=== PATIENT | male | born 1935 | race Two or more races ===

== ENCOUNTER → 2016-04-03 | Day surgery (SDC) | payer OTHER, MEDICAID | END | disposition home or self-care (01) | LOC: FIMAGING 14:06 | PROVIDERS: ATTEND Radiology Diagnostic Radiology | PROC: 02HV33Z Insertion of Infusion Device into Superior Vena Cava, Percutaneous Approach (ICD-10-PCS; principal; 2016-04-03) | DX: R33.9 Retention of urine, unspecified (principal); Z79.2 Long term (current) use of antibiotics; Z87.440 Personal history of urinary (tract) infections | CPT/HCPCS: 36569; 77001; C1751 ==

== ENCOUNTER 2016-04-04 09:59 | Day surgery (SDC) | payer OTHER, MEDICAID ==
[2016-03-18 11:39] LABS: ANION GAP 10 mEq/L (8-16); CALCIUM 8.9 mg/dL (8.5-10.4); CARBON DIOXIDE 18 mEq/l (22-31); CHLORIDE 113 mEq/L (97-110); CREATININE 2.5 mg/dL (0.7-1.3); GLOMERULAR FILTRATION RATE 25; GLUCOSE 76 mg/dL (70-100); SODIUM 141 mEq/L (134-144)
--- NOTE | 2016-03-19 07:51 | CPEKG ---
Heart Rate: 62 RR Interval: 968 P-R Interval: 184 QRSD Interval: 90 QT Interval: 392 QTC Interval: 398 P [place]: 43 QRS [place]: -12 T Wave [place]: 3 EKG Severity - NORMAL ECG - EKG Impression: SINUS RHYTHM Electronically Signed By: Vangie Bradley 19-Mar-2016 12:47:37
[~2016-04-04 09:59] MED LIST: levOFLOXACIN 500 MG/DEXTROSE 100 ML IV ONE
[2016-04-04] MEDS ORDERED: levOFLOXACIN 500 MG/DEXTROSE/100 ML BAG IV ONE (11:20)
[2016-04-04] MEDS ORDERED: NS 1,000 ML IV ONE (11:32)
[2016-04-04] MEDS ORDERED: fentaNYL 100 MCG/2 ML INJ ONE (12:35)
[2016-04-04] MEDS ORDERED: PHENYLEPHRINE HCL 100 MCG/ML SYR ONE (12:36)
[2016-04-04] MEDS ORDERED: METOCLOPRAMIDE 10 MG/2 ML VIAL ONE (12:36)
[2016-04-04] MEDS ORDERED: PROPOFOL 200 MG/20 ML VIAL ONE (12:36)
[2016-04-04] MEDS ORDERED: LIDOCAINE 2% JELLY 5 ML TUBE ONE (12:36)
[2016-04-04] MEDS ORDERED: ONDANSETRON 4 MG/2 ML VIAL ONE (12:37)
[2016-04-04] MEDS ORDERED: MIDAZOLAM 2 MG/2 ML VIAL ONE (12:48)
--- NOTE | 2016-04-04 14:28 | POSTOPPROG ---
Post Op Note Date of Operation: 04/04/16 Surgeon: Annia Nicole (# [id number]) Anesthesia: LMA Pre-op Diagnosis: Severe urethral stricture Post-op Diagnosis: Severe urethral stricture Procedure: DVIU w/ holmium laser Findings: See op report Inf/Abcess present in the surg proc area at time of surgery?: Yes Depth: Organ Space (Lower urinary tract) EBL: Minimal Complications: None Specimen(s): None
--- NOTE | 2016-04-04 15:08 | GOP ---
[f rep st] OPERATIVE REPORT DATE OF OPERATION: 04/04/2016 SURGEON: Annia Nicole MD ANESTHESIA: Laryngeal mask. PREOPERATIVE DIAGNOSIS: Severe urethral stricture. POSTOPERATIVE DIAGNOSIS: Severe bulbomembranous urethral stricture. PROCEDURE PERFORMED: Direct vision internal urethrotomy with holmium laser. FINDINGS: Dense urethral stricture, as detailed below. SPECIMENS: None. ESTIMATED BLOOD LOSS: Minimal. INDICATIONS: This gentleman has had issues with recent recurrent urinary tract infections and urinary retention, but with an inability to catheterize. Office cystoscopy revealed a severely flow-limiting proximal anterior urethral stricture. The patient presents for operative management as noted above, at this time. The indications for the procedures as well as potential risks and complications, were discussed with the patient preoperatively through an local company truck driver. He appeared to understand, his questions were answered, and he wished to proceed. Written informed surgical consent was thereafter obtained. DESCRIPTION OF PROCEDURE: The patient was brought to the operating room and administered laryngeal mask anesthesia. He was carefully placed in the dorsal lithotomy position on the cystoscopic table. The genital area was sterilely prepped with Betadine scrub and paint, and then draped in the usual sterile fashion. A cystoscopy was performed with the 30 degree lens through a 22- [place] sheath. Anterior urethra was normal until the proximal bulbar region was reached. There was a severely flow-limiting stricture at this location that was approximately 5-Uruguayan in diameter. I passed a 0.032-inch guidewire through the strictured area, followed by the passage of a 5-[place] open-ended ureteral catheter. A 550 micron holmium laser fiber was advanced through the ureteral catheter. The laser was then used to make radial incisions through the region of the stricture until the urethra was more widely patent. The stricture was noted to be quite thick and approximately 1-2 cm in length. It appeared to traverse the bulbomembranous region of the urethra. 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 Examination of the bladder revealed it to be heavily trabeculated with a few shallow diverticula. Otherwise, no areas of abnormal erythema, tumors, nor foreign bodies were seen were seen in the bladder. Ureteral orifices were normal in regard to shape and position along the trigone. Once the urethral lumen had been adequately opened, the cystoscope was removed and an 18-[place] tip catheter advanced over the guidewire. Guidewire was subsequently removed and the balloon inflated on the Campbell catheter. The catheter was connected to bag drainage and the urine return was light pink. The patient was then awakened, transferred to his bed, then taken to the recovery room. He tolerated the procedure well overall. COMPLICATIONS: None. DISPOSITION: He was transferred to the recovery room in stable condition. He will be discharged once meeting standard outpatient criteria, with instructions to remove his Campbell catheter next Friday morning, then return to my office in approximately 3 weeks. /[id number]/MODL MTDD
== END 2016-04-04 15:50 | disposition home or self-care (01) ==
LOC: FSGY 09:59 → FPAT 09:59
PROVIDERS: ATTEND Specialist
PROC: 02HV33Z Insertion of Infusion Device into Superior Vena Cava, Percutaneous Approach (ICD-10-PCS; principal; 2016-04-04 13:45)
PROC: 0T5D8ZZ Destruction of Urethra, Via Natural or Artificial Opening Endoscopic (ICD-10-PCS; principal; 2016-04-04 13:45)
DX: N35.9 Urethral stricture, unspecified (principal); N39.0 Urinary tract infection, site not specified; R33.9 Retention of urine, unspecified; N39.42 Incontinence without sensory awareness; N18.9 Chronic kidney disease, unspecified; E11.22 Type 2 diabetes mellitus with diabetic chronic kidney disease; I12.9 Hypertensive chronic kidney disease with stage 1 through stage 4 chronic kidney disease, or unspecified chronic kidney disease; I69.054 Hemiplegia and hemiparesis following nontraumatic subarachnoid hemorrhage affecting left non-dominant side; F32.9 Major depressive disorder, single episode, unspecified; Z87.440 Personal history of urinary (tract) infections
CPT/HCPCS: 36569; 52214; 93005; C1758; C1769; J1956; J2250; J2370; J2405; J2704; J2765; J3010

== ENCOUNTER → 2016-06-24 | Outpatient (CLI) | payer OTHER, MEDICAID | LOC: FIMAGING 11:55 | PROVIDERS: ATTEND Specialist | DX: N13.30 Unspecified hydronephrosis (principal); R33.9 Retention of urine, unspecified ==

== ENCOUNTER 2016-12-17 09:55 | Inpatient (IN) | payer OTHER, MEDICAID ==
[2016-12-17] MEDS ORDERED: NS 1,000 ML IV ONE ×2 (10:23→15:41)
[2016-12-17] MEDS ORDERED: ONDANSETRON 4 MG/2 ML VIAL IVP ONE (10:23)
[2016-12-17 10:29] LABS: % IMMATURE GRANULYOCYTES 0.9 % (0.0-1.1); ABSOLUTE IMMATURE GRANULOCYTES 0.06 10^3/uL (0.00-0.10); ADD DIFF? NO; ADD MORPH? NO; ADD SCAN? NO; ATYPICAL LYMPHOCYTE FLAG 0 (0-99); FRAGMENT RBC FLAG 0 (0-99); HEMATOCRIT 29.8 % (40.0-51.0); HEMOGLOBIN 10.8 g/dL (13.7-17.5); LEFT SHIFT FLG 10 (0-99); LIPEMIA HEMOLYSIS FLAG 90 (0-99); MEAN CELL HEMOGLOBIN 31.2 pg (27.9-34.1); MEAN CELL HEMOGLOBIN CONCENTR. 36.2 g/dL (32.4-36.7); MEAN CELL VOLUME 86.1 fL (81.5-99.8); MEAN PLATELET VOLUME 9.2 fL (8.7-11.7); PLATELET CLUMPS FLAG 0 (0-99); PLATELET COUNT 290 10^3/uL (150-400); RED BLOOD CELL COUNT 3.46 10^6/uL (4.40-6.38); RED CELL DISTRIBUTION WIDTH 15.5 % (11.5-15.2)
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
[2016-12-17 10:52] LABS: ANION GAP 25 mEq/L (8-16); CALCIUM 8.2 mg/dL (8.5-10.4); CHLORIDE 109 mEq/L (97-110); GLOMERULAR FILTRATION RATE 4; GLUCOSE 106 mg/dL (70-100); POTASSIUM 4.1 mEq/L (3.5-5.2); SODIUM 143 mEq/L (134-144)
--- NOTE | 2016-12-17 11:04 | CPEKG ---
Heart Rate: 73 RR Interval: 822 P-R Interval: 180 QRSD Interval: 88 QT Interval: 392 QTC Interval: 432 P [place]: 48 QRS [place]: -11 T Wave [place]: 29 EKG Severity - NORMAL ECG - EKG Impression: SINUS RHYTHM Electronically Signed By: Nilson Ryder 17-Dec-2016 15:00:22
[2016-12-17 11:09] LABS: CARBON DIOXIDE 9 mEq/l (22-31)
[2016-12-17] MEDS ORDERED: ONDANSETRON 4 MG/2 ML VIAL IVP PRN (11:51)
[2016-12-17] MEDS ORDERED: ONDANSETRON DISINTEGRATING 4 MG TAB PO PRN (11:51)
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
[2016-12-17] MEDS: SODIUM BICARBONATE 650 MG TAB PO SCH ×2 (16:06→20:32)
--- NOTE | 2016-12-17 16:10 | GHP ---
[f rep st] HISTORY AND PHYSICAL DATE OF ADMISSION: 12/17/2016 CHIEF COMPLAINT: Nausea and vomiting. HISTORY OF PRESENT ILLNESS: An 81-year-old male with a history of diabetes, hypertension and recent bulbomembranous urethral stricture, status post dilation who presents with nonspecific nausea and vom iting x3 days. The patient's and care provider report that after his recent stricture dilation the patient had marked improvement in his urine output, denies any subjective fevers, chills. Denies any hematuria, denies any diarrhea, blood in his stools, chest pain, shortness of breath, headache o r difficulty swallowing. The patient over the last 3 to 4 days has had increasing fatigue, malaise, then nausea and vomiting. He has been fearful to eat food as it comes right back up. Denies any itc jamison or rashes. PAST MEDICAL HISTORY: 1. Diabetes type 2. 2. Hypertension. 3. History of a CVA with persistent vision and gait deficits. 4. History of T12-L1 osteomyelitis. 5. History of MSSA bacteremia. 6. History of psoas abscess. 7. History of bulbomembranous urethral stricture status post surgical dilation. 8. CKD presumed from chronic obstructive uropathy. Most recent creatinine in 4 in September of 2016. SOCIAL HISTORY: Patient lives at home with his . No tobacco, alcohol or illicit drugs. FAMILY HISTORY: Negative for kidney disease. REVIEW OF SYSTEMS: A 10-point Review of Systems is negative. ADVANCE DIRECTIVES: The patient wishes to be full cor, full tube. PHYSICAL EXAMINATION: VITAL SIGNS: Blood pressure 172/92, heart rate 75, respiratory rate 18, 97% o n room air, 36.7. GENERAL: This is a thin elderly male lying flat in bed. HEENT: Notable for dry mucous membranes. Eye exam is negative for any icterus. CARDIAC EXAM: Patient is regular rate and rhythm. A systolic murmur is appreciated. PULMONARY: Patient is clear to auscultation bilaterally. GASTROINTESTINAL: Positive bowel sounds. Abdomen is soft, but distended. Denies tenderness to pa lpation in the suprapubic area. MUSCULOSKELETAL: Negative for any lower extremity edema. SKIN EXAM : Negative for any rashes. NEUROLOGIC: Patient is alert and oriented x3. Has clear visual deficit s. Gait was not assessed. DATA: White count 7, hematocrit 29.8, platelets of 280. Creatinine of 12.0, last checked at 4, bica rb 9, anion gap of 25, BUN of 129, calcium of 8.2. EKG, which I personally reviewed and interpreted, shows sinus rhythm, leftward axis with no acute ST- T changes. ASSESSMENT AND PLAN: This is an 81-year-old male, presenting with nausea and vomiting. 1. Acute on chronic kidney injury. Based on the patient's history, suspect we have recurrence of hi s urethral stricture causing an obstructive uropathy. Will order a STAT ultrasound of the kidneys to look for hydronephrosis and the level of obstruction. Will additionally consult Nephrology as well as Urology for help mechanically addressing what I am presuming is recurrent urethral stricture. The patient received 1 L of normal saline in the emergency department. I am hopeful with Campbell placemen t will see improvement in his renal function overnight. 2. Acute anion gap metabolic acidosis secondary to acute kidney injury. The patient did compliantly take all of his medications including his metformin since last seen by physician. Will hold all of these medications. Check a lactic acid and hydrate. 3. Diabetes, as above, will hold the patient's metformin, will add sliding scale insulin as needed. 4. Hypertension, will hold the patient's diuretics, can continue his calcium channel angeles, and fo llow his pressures overnight, if needed, can do p.r.n. hydralazine. 5. History of cerebrovascular accident. The patient has clear deficits on his neurologic exam. Mauro l continue his aspirin and statin. 6. Prophylaxis. Will hold Lovenox as I suspect patient will need instrumentation later today by Uro logy. Will place SCDs. Can restart heparin subcu after intervention. DIET: n.p.o. until cleared by Urology to eat. DISPOSITION: I expect greater than 2-midnights. Patient is presenting with severe acute kidney inju ry requiring urologic intervention and close monitoring. I have discussed the case with Dr. Patel from Nephrology. The patient is not interested in hemodialysis. We will work on mechanical interve ntion for the patient's suspected recurrent obstruction. /[id number]/MODL
[2016-12-17] MEDS ORDERED: LIDOCAINE 2% JELLY 20 ML (UROJECT) UR ONE (16:15)
--- NOTE | 2016-12-17 16:33 | PDMN ---
Medical Necessity Medical necessity: Pt meets IP criteria per MD; est los >2 mn for severe acute kidney injury requiring urologic intervention & close monitoring, acute anion gap metabolic acidosis secondary to acute kidney injury; hx DM, htn, CVA; per H& P 12/17/16
--- NOTE | 2016-12-17 17:59 | SOAPPROG ---
SOAP Progress Note Assessment/Plan: Assessment: 1. Known urethral stricture disease with chronic urinary retention. 2. Grossly purulent urine. 3. Acute on chronic renal failure. Plan: 1. Bedside urethral dilation and complex urethral catheterization completed without complication. 2. Monitor creatinine. Will have low threshold for bilateral nephrostomy tube placement. 3. Urine will be sent for culture this evening. Objective: Vital Signs Temp Pulse Resp BP Pulse Ox 36.6 C 79 20 186/91 H 97 12/17/16 16:43 12/17/16 16:43 12/17/16 16:43 12/17/16 16:43 12/17/16 16:43 12/16/16 12/17/16 12/18/16 05:59 05:59 05:59 Intake Total 1000 Balance 1000 ICD10 Worksheet Patient Problems: Problems Problem Status Onset Renal failure (ARF), acute on chronic Acute Closed fracture of pelvis Active Fever Active bladder rupture Active Bacteremia Acute Bacteremia due to Klebsiella pneumoniae Acute Lumbar canal stenosis Acute Urinary tract infection Acute
[2016-12-17 18:24] LABS: COLOR YELLOW; LEUKOCYTE ESTERASE,URINE 3+ (NEGATIVE); NITRITE,URINE NEGATIVE (NEGATIVE)
[2016-12-17 18:27] LABS: BACTERIA 4+ /hpf (NONE SEEN); RBC,URINE 25-50 /hpf (0-3); WBC,URINE 50-182 /hpf (0-3)
[2016-12-17] MEDS: TAMSULOSIN HCL 0.4 MG CAP PO SCH (20:31)
[2016-12-18 03:59] LABS: % IMMATURE GRANULYOCYTES 0.8 % (0.0-1.1); ABSOLUTE IMMATURE GRANULOCYTES 0.05 10^3/uL (0.00-0.10); ADD DIFF? NO; ADD MORPH? NO; ADD SCAN? NO; ATYPICAL LYMPHOCYTE FLAG 0 (0-99); FRAGMENT RBC FLAG 0 (0-99); HEMATOCRIT 25.1 % (40.0-51.0); HEMOGLOBIN 8.6 g/dL (13.7-17.5); LEFT SHIFT FLG 10 (0-99); LIPEMIA HEMOLYSIS FLAG 90 (0-99); MEAN CELL HEMOGLOBIN 30.3 pg (27.9-34.1); MEAN CELL HEMOGLOBIN CONCENTR. 34.3 g/dL (32.4-36.7); MEAN CELL VOLUME 88.4 fL (81.5-99.8); MEAN PLATELET VOLUME 8.9 fL (8.7-11.7); PLATELET CLUMPS FLAG 0 (0-99); PLATELET COUNT 226 10^3/uL (150-400); RED BLOOD CELL COUNT 2.84 10^6/uL (4.40-6.38); RED CELL DISTRIBUTION WIDTH 15.6 % (11.5-15.2)
[2016-12-18 04:12] LABS: ALBUMIN 2.9 g/dL (3.5-5.0); ANION GAP 21 mEq/L (8-16); CALCIUM 7.6 mg/dL (8.5-10.4); CHLORIDE 113 mEq/L (97-110); GLOMERULAR FILTRATION RATE 4; GLUCOSE 90 mg/dL (70-100); POTASSIUM 3.5 mEq/L (3.5-5.2); SODIUM 143 mEq/L (134-144)
[2016-12-18 04:19] LABS: CARBON DIOXIDE 9 mEq/l (22-31); CREATININE 11.2 mg/dL (0.7-1.3)
[2016-12-18] MEDS: SODIUM BICARBONATE 650 MG TAB PO SCH ×4 (05:55→21:25)
[2016-12-18] MEDS ORDERED: NON-FORMULARY NEW DRUG (Lovastatin [Lovastatin] 20 MG) PO SCH (09:00)
[2016-12-18] MEDS: ASPIRIN EC 81 MG TAB PO SCH (09:03)
[2016-12-18] MEDS: PRAVASTATIN SODIUM 20 MG TAB PO SCH (09:04)
--- NOTE | 2016-12-18 11:25 | SOAPPROG ---
SOAP Progress Note Assessment/Plan: Assessment: ALEXSANDRA vs progression of CKD nausea and vomiting better today garnica cath in place with 1.8 L uop does NOT want dialysis Plan: continue support NO HD would help family arrange outpatient hospice/palliative care 12/18/16 11:22 Objective: Vital Signs Temp Pulse Resp BP Pulse Ox 36.8 C 63 18 148/79 H 96 12/18/16 08:30 12/18/16 08:30 12/18/16 08:30 12/18/16 09:03 12/18/16 08:30 Laboratory Results 12/18/16 03:36 12/18/16 03:36 12/17/16 12/18/16 12/19/16 05:59 05:59 05:59 Intake Total 1850 Output Total 1805 Balance 45 Physical Exam - Physical Exam General Appearance: alert, thin Respiratory: No rales, No rhonchi, No wheezing Cardiac/Chest: regular rate, rhythm, No edema, No friction rub Abdomen: normal bowel sounds, non-tender, soft Skin: normal color, warm/dry Extremities: No pedal edema Neuro/Psych: alert, normal mood/affect, oriented x 3 ICD10 Worksheet Patient Problems: Problems Problem Status Onset Renal failure (ARF), acute on chronic Acute Closed fracture of pelvis Active Fever Active bladder rupture Active Bacteremia Acute Bacteremia due to Klebsiella pneumoniae Acute Lumbar canal stenosis Acute Urinary tract infection Acute
[2016-12-18] MEDS: TAMSULOSIN HCL 0.4 MG CAP PO SCH ×2 (11:59→21:25)
[2016-12-18] MEDS: OMEGA-3 FATTY ACIDS 1,000 MG CAP PO SCH (12:02)
--- NOTE | 2016-12-18 15:52 | ASMTCMCOM ---
CM Note CM Note Notes: 12/18/2016 Case Management Note Met w/pt and cooperative education director to discuss d/c plan of care. PT lives with , who provides majority of cares. Pt does not want to d/c to SNF, has prior stays at [facility]. Pt wanted case management to contact regarding home health agency services. Forest Ecologist and Case management attempted to reach [facility]. Reached daughter Bill who is passing a message to [facility]. Planned for meeting at 0900 with and possibly daughter on 12/19/2016 to fill out MOST form and discuss MDPOA. Contacted spiritual care to facilitate discussion tomorrow morning. cooperative education director will be present as well tomorrow. Case Management d/c poc: to be determined. Case management to follow. Date Signed: 12/18/2016 03:51 PM Electronically Signed By:Candy Proctor RN
--- NOTE | 2016-12-18 18:43 | HOSPPROG ---
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 Nicole to see if this will lead to any improvement in his renal function. A Campbell catheter is in place and Dr. Nicole wishes for that to be left in place at this time -diabetes mellitus chronic -chronic hypertension PLANS: -Patient is decided that he does not wish to have any hemodialysis. Therefore we are looking into palliative care options. His family was not at the bedside and I was not able to discuss with them today but will need to decide whether not he will be able to go with him if taking care form or whether he may need to go to a fdc facility at this time. Another option might be the inpatient hospice care center at [facility] on [place]. -Campbell catheter remain in place at this time, per Dr. Ramírez while we follow his renal function for any improvement -hospice evaluation, discharge planning SUBJECTIVE: Patient denies any pain, nausea, dyspnea. 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, my review: Sinus Exam: alert oriented, very weak and tired skin warm dry resps not labored lungs clear BSs heart regular abd soft nondistended nontender, bowel sounds present iv site ok Creatinine decreased from 12-11.2 CO2 still low at 9 on bicarbonate replacement Objective: Vital Signs Temp Pulse Resp BP Pulse Ox 36.6 C 60 17 128/70 H 96 12/18/16 16:00 12/18/16 16:00 12/18/16 16:00 12/18/16 16:00 12/18/16 16:00 Laboratory Results 12/18/16 03:36 12/18/16 03:36 12/17/16 12/18/16 12/19/16 06:59 06:59 06:59 Intake Total 1850 Output Total 1805 450 Balance 45 -450 ICD10 Worksheet Patient Problems: Problems Problem Status Onset Renal failure (ARF), acute on chronic Acute Closed fracture of pelvis Active Fever Active bladder rupture Active Bacteremia Acute Bacteremia due to Klebsiella pneumoniae Acute Lumbar canal stenosis Acute Urinary tract infection Acute
[2016-12-19 05:33] LABS: % IMMATURE GRANULYOCYTES 0.7 % (0.0-1.1); ABSOLUTE IMMATURE GRANULOCYTES 0.04 10^3/uL (0.00-0.10); ADD DIFF? NO; ADD MORPH? NO; ADD SCAN? NO; ATYPICAL LYMPHOCYTE FLAG 0 (0-99); FRAGMENT RBC FLAG 0 (0-99); HEMATOCRIT 24.8 % (40.0-51.0); HEMOGLOBIN 8.8 g/dL (13.7-17.5); LEFT SHIFT FLG 10 (0-99); LIPEMIA HEMOLYSIS FLAG 90 (0-99); MEAN CELL HEMOGLOBIN 31.1 pg (27.9-34.1); MEAN CELL HEMOGLOBIN CONCENTR. 35.5 g/dL (32.4-36.7); MEAN CELL VOLUME 87.6 fL (81.5-99.8); MEAN PLATELET VOLUME 9.5 fL (8.7-11.7); PLATELET CLUMPS FLAG 0 (0-99); PLATELET COUNT 243 10^3/uL (150-400); RED BLOOD CELL COUNT 2.83 10^6/uL (4.40-6.38); RED CELL DISTRIBUTION WIDTH 15.1 % (11.5-15.2)
[2016-12-19 05:46] LABS: ALBUMIN 2.9 g/dL (3.5-5.0); ANION GAP 20 mEq/L (8-16); CALCIUM 7.7 mg/dL (8.5-10.4); CARBON DIOXIDE 10 mEq/l (22-31); CHLORIDE 110 mEq/L (97-110); GLOMERULAR FILTRATION RATE 5; GLUCOSE 87 mg/dL (70-100); POTASSIUM 3.4 mEq/L (3.5-5.2); SODIUM 140 mEq/L (134-144)
[2016-12-19 05:48] LABS: CREATININE 10.9 mg/dL (0.7-1.3)
[2016-12-19] MEDS: SODIUM BICARBONATE 650 MG TAB PO SCH ×4 (06:35→22:14)
[2016-12-19] MEDS: ASPIRIN EC 81 MG TAB PO SCH (09:00)
[2016-12-19] MEDS: PRAVASTATIN SODIUM 20 MG TAB PO SCH (09:00)
[2016-12-19] MEDS: TAMSULOSIN HCL 0.4 MG CAP PO SCH ×2 (11:04→22:14)
--- NOTE | 2016-12-19 11:29 | HOSPPROG ---
Hospitalist Progress Note Assessment/Plan: #. CKD5 - patient would like to proceed with HD per discussion with palliative care. I also discussed with Dr. Benson and preparations are being made for HD catheter. #. Hypokalemia - mild. Follow for now. #. Hx urethral stricture - Dr. Nicole consulting. Continue with garnica catheter. #. HTN - stable. No changes today. #. DM2 - No changes. #. Metabolic Acidosis - secondary to uremia. Patient is on sodium bicarb. #. 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 #. Bowel/Bladder - BM X 1 today. #. DVT prophylaxis - Hold heparin/lovenox and will need catheter. #. Dispo - code status was readdress with palliative care and he remains a full code. Subjective: Case reviewed this morning with Elio Damon with palliative care as well as Dr. Benson with nephrology. The patient changed his mind about proceeding with HD and would like to start. No acute events overnight. Objective: Vital Signs Temp Pulse Resp BP Pulse Ox 36.8 C 58 L 17 146/74 H 94 12/19/16 08:00 12/19/16 08:00 12/19/16 08:00 12/19/16 09:04 12/19/16 08:00 Laboratory Results 12/19/16 04:26 12/19/16 04:26 12/18/16 12/19/16 12/20/16 05:59 05:59 05:59 Intake Total 1850 900 Output Total 1805 1850 Balance 45 -950 - Physical Exam Constitutional: no apparent distress, appears nourished, not in pain Cardiovascular: regular rate and rhythym, no murmur, rub, or gallop, No edema Respiratory: no respiratory distress, no rales or rhonchi, clear to auscultation Gastrointestinal: normoactive bowel sounds, soft, non-tender abdomen, no palpable masses ICD10 Worksheet Patient Problems: Problems Problem Status Onset Renal failure (ARF), acute on chronic Acute Closed fracture of pelvis Active Fever Active bladder rupture Active Bacteremia Acute Bacteremia due to Klebsiella pneumoniae Acute Lumbar canal stenosis Acute Urinary tract infection Acute
--- NOTE | 2016-12-19 11:43 | ASMTCMCOM ---
CM Note CM Note Notes: 12/19/2016 Case Management Note Met w/pt, Suly, daugkristina Hearn. son in law Collins and son Jet, Chaplain Bertrand, Chaplain Ballard and supervisor shrimp [employer] Elliot. Discussed need for home health services at d/c. Family and pt in agreement of need for home RN and PT. After discussing multiple agencies, family chose [facility]. Notified [facility] who accepted pt. Please see palliative care note for details of discussion re: advanced directives and MDPOA. Suly designated MDPOA by pt. Educated pt on benefits of dialysis and addressed misconceptions that dialysis is life shortening. Pt agreed that dialysis was acceptable course of treatment. Family in agreement and able to transport pt to dialysis 3 x/week. Elio palliative crm marketing executive to j carlos [facility]. Case Management notified RN. Case Management d/c poc: Home with home health RN PT from [facility] when medicallly stable with follow up as directed. Date Signed: 12/19/2016 11:42 AM Electronically Signed By:Candy Proctor RN
--- NOTE | 2016-12-19 11:44 | SOAPPROG ---
NIESHA Progress Note Assessment/Plan: Assessment:Plan: ESRD-patient now would like to pursue dialysis -he and his had been very clear prior to this admission that this was something they did not wish to pursue -he evidently was under the belief that initiation of dialysis would hasten his demise -they have now changed their minds after discussion with Palliative Care -I had actually referred them for consultation with Palliative Care/Hospice several months ago -regardless, we will now pursue access placement and the initiation of dialysis -I have placed a call to Dr. Oscar for AVF and tunneled catheter placement -preserve veins in Left arm for AVF -he is right-handed -Hep serologies requested -he lives at [address] [place] [address] here in [place] -I spoke with the and requested that she and her family visit the dialysis clinics in the area so they can make a choice on where they want to go -the two closest clinics are [facility] and [facility] dialysis -I have been seeing him at the [facility] in [place], which is adjacent to the [facility] Access-per Dr. Oscar Disposition-he needs to get stabilized on Hd first -he and his family need to choose a dialysis center for his outpatient care -I suspect he will be able to go directly home from this hospitalization, as he has a very supportive family 12/19/16 11:36 Subjective: feels just "okay" Objective: Vital Signs Temp Pulse Resp BP Pulse Ox 36.8 C 58 L 17 146/74 H 94 12/19/16 08:00 12/19/16 08:00 12/19/16 08:00 12/19/16 09:04 12/19/16 08:00 Laboratory Results 12/19/16 04:26 12/19/16 04:26 12/18/16 12/19/16 12/20/16 05:59 05:59 05:59 Intake Total 1850 900 Output Total 1805 1850 Balance 45 -950 Physical Exam - Physical Exam General Appearance: alert, no apparent distress EENT: normal ENT inspection Neck: normal inspection Respiratory: decreased breath sounds Cardiac/Chest: regular rate, rhythm Abdomen: normal bowel sounds, non-tender Skin: normal color, warm/dry Extremities: No swelling ICD10 Worksheet Patient Problems: Problems Problem Status Onset Renal failure (ARF), acute on chronic Acute Closed fracture of pelvis Active Fever Active bladder rupture Active Bacteremia Acute Bacteremia due to Klebsiella pneumoniae Acute Lumbar canal stenosis Acute Urinary tract infection Acute
[2016-12-19] MEDS: OMEGA-3 FATTY ACIDS 1,000 MG CAP PO SCH (12:09)
[2016-12-19] MEDS ORDERED: ceFAZolin 2 GM/DEXTROSE 100 ML IV ONE (18:05)
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
[2016-12-19] MEDS ORDERED: ceFAZolin 2 GM/SWFI 20 ML SYR IVP ONE (18:30)
[2016-12-19] MEDS ORDERED: LIDOCAINE 1% 300 MG/30 ML SDV ONE (18:31)
[2016-12-19] MEDS ORDERED: SODIUM BICARBONATE 10 MEQ/10 ML SYR IVP ONE (18:32)
[2016-12-19] MEDS ORDERED: BUPIVACAINE 0.5% 30 ML SDV ONE (18:33)
[2016-12-19] MEDS ORDERED: BACITRACIN ZINC 14.2 GM OINTTUBE TP ONE (18:34)
[2016-12-19] MEDS ORDERED: HEPARIN 5,000 UNIT/0.5 ML SYR ONE ×2 (18:34→19:47)
[2016-12-19] MEDS ORDERED: LIDOCAINE 2% 5 ML SDV ONE (18:40)
[2016-12-19] MEDS ORDERED: PROPOFOL/EMULSION 500 MG/50 ML BOTTLE IV ONE (18:40)
[2016-12-19] MEDS ORDERED: HEPARIN 10,000 UNIT/10 ML MDV ONE (19:45)
[2016-12-19] MEDS ORDERED: HEPARIN 50,000 UNIT/10 ML VIAL ONE (19:50)
[2016-12-19] MEDS ORDERED: fentaNYL 100 MCG/2 ML INJ IVP PRN (20:02)
[2016-12-19] MEDS ORDERED: ALBUTEROL 3 ML DEYVIAL IH PRN (20:02)
[2016-12-19] MEDS ORDERED: NALOXONE HCL 0.4 MG/ML INJ IVP PRN (20:02)
--- NOTE | 2016-12-19 20:02 | POSTANESTH ---
Post Anesthetic Evaluation Cardiovascular Status: Normal, Stable Respiratory Status: Normal, Stable Level of Consciousness/Mental Status: Can Participate in Eval Pain Control: Adequate, Prn Tx Ordered Nausea/Vomiting Control: Adequate, Prn Tx Ordered Complications Possibly Related to Anesthesia: None Noted
[2016-12-19] MEDS ORDERED: HYDROCODONE/APAP 5/325 TAB PO PRN (20:09)
--- NOTE | 2016-12-19 20:15 | POSTOPPROG ---
Post Op Note Date of Operation: 12/19/16 Surgeon: Jayme Oscar Anesthesiologist: ALONSO Anesthesia: IV Sedation Pre-op Diagnosis: RENAL FAILURE Post-op Diagnosis: SAME Indication: DIALYSIS ACCESS Procedure: RIGHT IJ PALINDROME TUNNELED CATHETER PLACEMENT WITH FLUOROSCOPIC GUIDANCE Findings: GOOD FLOW Inf/Abcess present in the surg proc area at time of surgery?: No Depth: Deep Incisional (Fascial) EBL: Minimal Complications: NONE
--- NOTE | 2016-12-19 23:55 | SOAPPROG ---
SOAP Progress Note Assessment/Plan: Assessment: 81-YEAR-OLD MALE SEEN IN CONSULTATION FOR POSSIBLE DIALYSIS ACCESS / RISKS AND OPTIONS FULLY DISCUSSED WITH THE PATIENT AND FAMILY AND WITH AN EINSTEIN BROS BAGELS ASSISTANT MANAGER WILL NEED TUNNELED CATHETER AND EVENTUAL AV FISTULA HEENT NEGATIVE/ CHEST CLEAR/ COR REGULAR RHYTHM/ ABDOMEN SOFT NONTENDER / EXTREMITIES FULL RANGE OF MOTION FULL PULSES Plan: IN JUGULAR TUNNELED CATHETER TODAY AND AV FISTULA WHEN STABLE 12/19/16 23:52 Objective: Vital Signs Temp Pulse Resp BP Pulse Ox 36.7 C 77 16 162/87 H 96 12/19/16 23:41 12/19/16 23:41 12/19/16 23:41 12/19/16 23:41 12/19/16 23:41 Laboratory Results 12/19/16 04:26 12/19/16 04:26 12/18/16 12/19/16 12/20/16 05:59 05:59 05:59 Intake Total 1850 900 300 Output Total 1805 1850 1390 Balance 45 -928 -1090 ICD10 Worksheet Patient Problems: Problems Problem Status Onset Renal failure (ARF), acute on chronic Acute Closed fracture of pelvis Active Fever Active bladder rupture Active Bacteremia Acute Bacteremia due to Klebsiella pneumoniae Acute Lumbar canal stenosis Acute Urinary tract infection Acute
[2016-12-20] MEDS: ACETAMINOPHEN 325 MG TAB PO PRN ×2 (04:12→17:00)
[2016-12-20 04:59] LABS: % IMMATURE GRANULYOCYTES 0.4 % (0.0-1.1); ABSOLUTE IMMATURE GRANULOCYTES 0.04 10^3/uL (0.00-0.10); ADD DIFF? NO; ADD MORPH? NO; ADD SCAN? NO; ATYPICAL LYMPHOCYTE FLAG 0 (0-99); FRAGMENT RBC FLAG 0 (0-99); HEMATOCRIT 26.3 % (40.0-51.0); HEMOGLOBIN 9.2 g/dL (13.7-17.5); LEFT SHIFT FLG 0 (0-99); LIPEMIA HEMOLYSIS FLAG 90 (0-99); MEAN CELL HEMOGLOBIN 30.4 pg (27.9-34.1); MEAN CELL VOLUME 86.8 fL (81.5-99.8); MEAN PLATELET VOLUME 9.4 fL (8.7-11.7); PLATELET CLUMPS FLAG 40 (0-99); PLATELET COUNT 262 10^3/uL (150-400); RED BLOOD CELL COUNT 3.03 10^6/uL (4.40-6.38)
[2016-12-20 05:28] LABS: ANION GAP 18 mEq/L (8-16); CALCIUM 7.7 mg/dL (8.5-10.4); CARBON DIOXIDE 14 mEq/l (22-31); CHLORIDE 110 mEq/L (97-110); GLOMERULAR FILTRATION RATE 5; GLUCOSE 94 mg/dL (70-100); POTASSIUM 3.3 mEq/L (3.5-5.2); SODIUM 142 mEq/L (134-144)
--- NOTE | 2016-12-20 05:32 | GOP ---
[f rep st] OPERATIVE REPORT DATE OF OPERATION: 12/19/2016 SURGEON: Jayme Oscar MD PREOPERATIVE DIAGNOSIS: Chronic renal failure. POSTOPERATIVE DIAGNOSIS: Chronic renal failure. PROCEDURE PERFORMED: Ultrasound guided right IJ tunneled palindromic catheter placement with fluoroscopic guidance. FINDINGS: Patient was found to have good position and flow. DESCRIPTION OF PROCEDURE: Patient was taken to the operating room where he received satisfactory IV sedation, monitored anesthesia care by Dr. Underwood. He was placed in supine position, prepped and draped in usual sterile fashion. Using ultrasound guidance, a direct stick was made in the right jugular vein. A guidewire was introduced, position was confirmed with fluoroscopy. Palindromic catheter was tunneled from an incision on the anterior chest wall up over the clavicle, into the insertion site of the guidewire. Dilators were passed with the guidewire and the introducer sheath was introduced under fluoroscopic guidance. The palindromic catheter was passed without difficulty and the introducer sheath was removed. Good position was confirmed. Good flow was confirmed. The catheter was flushed with heparin, saline was then instilled with the appropriate amount of 5000 units/cc of heparin, and secured to the exit site with interrupted 3-0 Prolene sutures. The entrance site was closed with 3-0 Prolene mattress sutures. Wounds had been originally accomplished with 1% Xylocaine local infiltration and they were augmented with 0.5% Marcaine local infiltration. He tolerated procedure quite well. There were no complications. He was taken to the recovery room in good condition. /[id number]/MODL MTDD
[2016-12-20 05:33] LABS: CREATININE 10.6 mg/dL (0.7-1.3)
[2016-12-20] MEDS: SODIUM BICARBONATE 650 MG TAB PO SCH ×4 (06:10→23:02)
--- NOTE | 2016-12-20 08:31 | SOAPPROG ---
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 with his above serologies not indicative of acute infection -he does not need to be isolated on dialysis -await Hep B SAb result to confirm immune status -he lives at [address] [place] [address] here in [place] -I have requested that family visit the dialysis clinics in the area so they can make a choice on where they want to go for treatment -the two closest clinics are [facility] and [facility] dialysis -I have been seeing him at the [facility] in [place], which is adjacent to the [facility] [place] Access-per Dr. Oscar -he had tunneled catheter placed yesterday -plan for possible AVF prior to discharge Disposition-he needs to get stabilized on Hd first -he and his family need to choose a dialysis center for his outpatient care -I suspect he will be able to go directly home from this hospitalization, as he has a very supportive family Anemia-check iron studies -start EPO 12/20/16 08:35 Subjective: okay overnite Objective: Vital Signs Temp Pulse Resp BP Pulse Ox 36.6 C 64 16 130/75 H 92 12/20/16 08:00 12/20/16 08:00 12/20/16 08:00 12/20/16 08:00 12/20/16 08:00 Laboratory Results 12/20/16 04:03 12/20/16 04:03 12/19/16 12/20/16 12/21/16 05:59 05:59 05:59 Intake Total 900 650 Output Total 1850 3200 Balance -950 -1890 Physical Exam - Physical Exam General Appearance: no apparent distress EENT: normal ENT inspection Neck: normal inspection Respiratory: decreased breath sounds Cardiac/Chest: regular rate, rhythm, No systolic murmur Abdomen: normal bowel sounds, non-tender Skin: normal color, warm/dry Extremities: No swelling ICD10 Worksheet Patient Problems: Problems Problem Status Onset Renal failure (ARF), acute on chronic Acute Closed fracture of pelvis Active Fever Active bladder rupture Active Bacteremia Acute Bacteremia due to Klebsiella pneumoniae Acute Lumbar canal stenosis Acute Urinary tract infection Acute
[2016-12-20] MEDS: TAMSULOSIN HCL 0.4 MG CAP PO SCH ×2 (11:22→23:02)
[2016-12-20] MEDS: PRAVASTATIN SODIUM 20 MG TAB PO SCH (11:22)
[2016-12-20] MEDS: ASPIRIN EC 81 MG TAB PO SCH (11:22)
[2016-12-20] MEDS: OMEGA-3 FATTY ACIDS 1,000 MG CAP PO SCH (11:23)
[2016-12-20 14:42] LABS: HEPATITIS Bs Ab QUANT <5.0 mIU/mL
--- NOTE | 2016-12-20 16:11 | HOSPPROG ---
Hospitalist Progress Note Assessment/Plan: #. CKD5 now ESRD/HD - patient would like to proceed with HD per discussion with palliative care. He has had a dialysis catheter placed and Dr. Oscar is looking into AV fistula formation. Per Dr. Benson's notes he had short session on HD today. #. Pseudomonas Urine Culture - there are no symptoms to suggest active infection but he did have grossly purulent urine when the garnica catheter was placed and today does have an elevated WBC (mild at 9). I reviewed with ID and will start Zosyn. #. Hypokalemia - mild. Follow for now. #. Hx urethral stricture - Dr. Nicole consulted. Continue with garnica catheter. #. HTN - he has had some elevated readings today. Will add prn hydralazine for SBP > 150. #. DM2 - No changes. #. Metabolic Acidosis - secondary to uremia. Patient is on sodium bicarb. #. 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 Epogen. #. Bowel/Bladder - BM X 1 today. #. DVT prophylaxis - held for catheter placement. If not bleeding likely could start heparin. #. Dispo - code status was readdress with palliative care and he remains a full code. Dr. Benson who knows him well thinks he will be able to return home with family (as good support) once stabilized on HD. Subjective: Patient was seen today along with wine consultant. He does not have any specific questions or concerns for me. He is not having any fevers or abdominal pains. He declines any pain around the catheter site. Objective: Vital Signs Temp Pulse Resp BP Pulse Ox 36.9 C 100 18 165/102 H 95 12/20/16 12:00 12/20/16 12:00 12/20/16 12:00 12/20/16 12:00 12/20/16 12:00 Microbiology 12/17/16 18:25 Urine Culture - Final Urine,Clean Catch Pseudomonas Aeruginosa Pseudomonas Aeruginosa#2 Strep Agalactiae Group B Laboratory Results 12/20/16 04:03 12/20/16 04:03 12/19/16 12/20/16 12/21/16 05:59 05:59 05:59 Intake Total 900 650 Output Total 1850 2540 450 Balance -950 -1890 -450 - Physical Exam Constitutional: no apparent distress, appears nourished, not in pain Cardiovascular: regular rate and rhythym, no murmur, rub, or gallop, No edema Respiratory: no respiratory distress, no rales or rhonchi, clear to auscultation Gastrointestinal: normoactive bowel sounds, soft, non-tender abdomen, no palpable masses ICD10 Worksheet Patient Problems: Problems Problem Status Onset Renal failure (ARF), acute on chronic Acute Closed fracture of pelvis Active Fever Active bladder rupture Active Bacteremia Acute Bacteremia due to Klebsiella pneumoniae Acute Lumbar canal stenosis Acute Urinary tract infection Acute
[2016-12-20] MEDS ORDERED: hydrALAZINE 20 MG/ML VIAL IVP PRN (16:35)
[2016-12-20] MEDS: PIPERACILLIN/TAZO 2.25 GM/DEX 50 ML IV SCH (17:34)
[2016-12-21] MEDS: PIPERACILLIN/TAZO 2.25 GM/DEX 50 ML IV SCH ×3 (01:05→17:15)
[2016-12-21] MEDS: ACETAMINOPHEN 325 MG TAB PO PRN (02:12)
[2016-12-21 05:03] LABS: ABSOLUTE IMMATURE GRANULOCYTES 0.08 10^3/uL (0.00-0.10); ADD DIFF? NO; ADD MORPH? NO; ADD SCAN? NO; ATYPICAL LYMPHOCYTE FLAG 0 (0-99); FRAGMENT RBC FLAG 0 (0-99); HEMOGLOBIN 8.7 g/dL (13.7-17.5); LEFT SHIFT FLG 10 (0-99); LIPEMIA HEMOLYSIS FLAG 90 (0-99); MEAN CELL HEMOGLOBIN 30.1 pg (27.9-34.1); MEAN CELL HEMOGLOBIN CONCENTR. 34.8 g/dL (32.4-36.7); MEAN CELL VOLUME 86.5 fL (81.5-99.8); MEAN PLATELET VOLUME 9.3 fL (8.7-11.7); PLATELET CLUMPS FLAG 0 (0-99); PLATELET COUNT 226 10^3/uL (150-400); RED BLOOD CELL COUNT 2.89 10^6/uL (4.40-6.38); RED CELL DISTRIBUTION WIDTH 14.8 % (11.5-15.2)
[2016-12-21 05:32] LABS: ALBUMIN 2.6 g/dL (3.5-5.0); ANION GAP 13 mEq/L (8-16); CALCIUM 7.6 mg/dL (8.5-10.4); CARBON DIOXIDE 22 mEq/l (22-31); CHLORIDE 100 mEq/L (97-110); GLOMERULAR FILTRATION RATE 7; GLUCOSE 114 mg/dL (70-100); POTASSIUM 3.1 mEq/L (3.5-5.2); SODIUM 135 mEq/L (134-144)
[2016-12-21 05:42] LABS: CREATININE 7.7 mg/dL (0.7-1.3)
[2016-12-21] MEDS: SODIUM BICARBONATE 650 MG TAB PO SCH ×4 (06:24→20:50)
--- NOTE | 2016-12-21 08:30 | SOAPPROG ---
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 suggesting past exposure with his above serologies not indicative of acute infection -he does not need to be isolated on dialysis -await Hep B SAb result to confirm immune status -he lives at [address] [place] [address] here in [place] -I have requested that family visit the dialysis clinics in the area so they can make a choice on where they want to go for treatment -the two closest clinics are [facility] and [facility] -I have been seeing him at the [facility] in [place], which is adjacent to the [facility] [place] Access-per Dr. Oscar -he had tunneled catheter placed yesterday -plan for possible AVF prior to discharge Disposition-he needs to get stabilized on Hd first -he and his family need to choose a dialysis center for his outpatient care -I suspect he will be able to go directly home from this hospitalization, as he has a very supportive family Anemia-check iron studies -start EPO and IV iron as outpatient BMD- -calcium corrects to >8 -check PTH, Vit D -renal diet with protein supplement AGMA- -CO2 normalizing on HD, may hold bicarb supplement Urinary retention with UTI- -pseudomonas, on zosyn -still has garnica, will need to see urology for follow-up or consider PVR trial prior to discharge -on tamsulosin, continue 12/21/16 08:31 Subjective: Patient seen on HD. Sleeping. Poor po intake and having some nausea. BP's lower today despite no UF. Objective: Vital Signs Temp Pulse Resp BP Pulse Ox 36.9 C 58 L 16 97/58 L 93 12/21/16 06:39 12/21/16 06:39 12/21/16 06:39 12/21/16 06:39 12/21/16 06:39 Microbiology 12/17/16 18:25 Urine Culture - Final Urine,Clean Catch Pseudomonas Aeruginosa Pseudomonas Aeruginosa#2 Strep Agalactiae Group B Laboratory Results 12/21/16 04:08 12/21/16 04:08 12/20/16 12/21/16 12/22/16 05:59 05:59 04:59 Intake Total 650 460 Output Total 2540 1100 Balance -1890 -640 Physical Exam - Physical Exam General Appearance: no apparent distress, cachetic EENT: PERRL/EOMI Neck: supple Respiratory: decreased breath sounds Cardiac/Chest: normal peripheral pulses, regular rate, rhythm Abdomen: normal bowel sounds, non-tender, soft Male Genitalia: other (garnica in place with light urine) Back: Normal inspection Skin: normal color, warm/dry Extremities: normal range of motion, non-tender Neuro/Psych: other (sleeping, awakens to touch) ICD10 Worksheet Patient Problems: Problems Problem Status Onset Renal failure (ARF), acute on chronic Acute Closed fracture of pelvis Active Fever Active bladder rupture Active Bacteremia Acute Bacteremia due to Klebsiella pneumoniae Acute Lumbar canal stenosis Acute Urinary tract infection Acute
[2016-12-21] MEDS ORDERED: HEPARIN 50,000 UNIT/10 ML VIAL ONE (10:45)
[2016-12-21] MEDS: PRAVASTATIN SODIUM 20 MG TAB PO SCH (11:51)
[2016-12-21] MEDS: ASPIRIN EC 81 MG TAB PO SCH (11:51)
[2016-12-21] MEDS: OMEGA-3 FATTY ACIDS 1,000 MG CAP PO SCH (11:52)
[2016-12-21] MEDS: TAMSULOSIN HCL 0.4 MG CAP PO SCH ×2 (12:50→20:51)
--- NOTE | 2016-12-21 14:10 | HOSPPROG ---
Hospitalist Progress Note Assessment/Plan: 81-year-old with chronic kidney disease stage 5 presents with nausea and vomiting for 4 days. On admission he was shown to be in acute on chronic renal failure and likely dialysis dependent at this point. He recently has a history of urethral stricture status post dilation, follow-up ultrasound did not reveal any significant changes. He also has a UTI. #. CKD5 now ESRD/HD - He has had a dialysis catheter placed on 12/[address] Oscar is looking into AV fistula formation. Continue dialysis slowly per Nephrology. Family is looking into local dialysis centers for transition to outpatient. Will need to decide on long-term access and timing of this. * Fistula Friday?, then DC if outpt dialysis is set up. #. Pseudomonas Urine Culture - * Treat with Zosyn #. Hypokalemia -on dialysis #. Hx urethral stricture - Dr. Nicole consulted. Continue with garnica catheter. * Will have patient go home with Garnica catheter, may need to exchange prior to discharge given UTI. * Follow up with Urology. #. HTN -Blood pressure have dropped significantly after initiation of dialysis. * Decrease amlodipine, adjust as needed * follow BP #. DM2 - No changes. #. Metabolic Acidosis - secondary to uremia. Patient is on sodium bicarb. #. 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 Epogen. #. Bowel/Bladder - BM X 1 today. #. DVT prophylaxis - SQ hep. #. Dispo - code status was readdress with palliative care and he remains a full code. Dr. Benson who knows him well thinks he will be able to return home with family (as good support) once stabilized on HD. Subjective: pt new to me, chart reviewed. Sleepy, no complaints via theatre manager. Objective: Vital Signs Temp Pulse Resp BP Pulse Ox 36.8 C 78 12 110/61 96 12/21/16 12:00 12/21/16 12:00 12/21/16 12:00 12/21/16 12:00 12/21/16 12:00 Microbiology 12/17/16 18:25 Urine Culture - Final Urine,Clean Catch Pseudomonas Aeruginosa Pseudomonas Aeruginosa#2 Strep Agalactiae Group B Laboratory Results 12/21/16 04:08 12/21/16 04:08 11/03/17 11/04/17 11/05/17 05:59 05:59 04:59 Intake Total 650 460 80 Output Total 8340 1100 Balance -8793 -720 80 - Physical Exam Constitutional: no apparent distress, chronically ill appearing Eyes: PERRL, EOMI Ears, Nose, Mouth, Throat: moist mucous membranes Cardiovascular: regular rate and rhythym Respiratory: no respiratory distress, clear to auscultation Gastrointestinal: normoactive bowel sounds, soft, non-tender abdomen Genitourinary: no bladder fullness, garnica in urethra Skin: warm, normal color Musculoskeletal: generalized weakness Psychiatric: interacting appropriately, not anxious ICD10 Worksheet Patient Problems: Problems Problem Status Onset Closed fracture of pelvis Active bladder rupture Active Fever Active Bacteremia Acute Bacteremia due to Klebsiella pneumoniae Acute Lumbar canal stenosis Acute Urinary tract infection Acute Renal failure (ARF), acute on chronic Acute
--- NOTE | 2016-12-21 20:32 | SOAPPROG ---
NIESHA Progress Note Assessment/Plan: Assessment: 81-YEAR-OLD MALE SEEN IN CONSULTATION FOR POSSIBLE DIALYSIS ACCESS / RISKS AND OPTIONS FULLY DISCUSSED WITH THE PATIENT AND FAMILY AND WITH AN TRANSFORMER TESTER WILL NEED TUNNELED CATHETER AND EVENTUAL AV FISTULA HEENT NEGATIVE/ CHEST CLEAR/ COR REGULAR RHYTHM/ ABDOMEN SOFT NONTENDER / EXTREMITIES FULL RANGE OF MOTION FULL PULSES Plan: IN JUGULAR TUNNELED CATHETER TODAY AND AV FISTULA WHEN STABLE 12/19/16 23:52 12/21/16 20:31 Tolerating dialysis well and catheter function is good/will arrange for AV fistula creation on Friday if medically ready Objective: Vital Signs Temp Pulse Resp BP Pulse Ox 36.7 C 58 L 16 96/55 L 95 12/21/16 19:59 12/21/16 19:59 12/21/16 19:59 12/21/16 19:59 12/21/16 19:59 Laboratory Results 12/21/16 04:08 12/21/16 04:08 12/20/16 12/21/16 12/22/16 05:59 05:59 04:59 Intake Total 740 688 1996 Output Total 2540 1100 300 Balance -1890 -640 770 ICD10 Worksheet Patient Problems: Problems Problem Status Onset Renal failure (ARF), acute on chronic Acute Closed fracture of pelvis Active Fever Active bladder rupture Active Bacteremia Acute Bacteremia due to Klebsiella pneumoniae Acute Lumbar canal stenosis Acute Urinary tract infection Acute
[2016-12-22] MEDS: PIPERACILLIN/TAZO 2.25 GM/DEX 50 ML IV SCH ×4 (01:20→21:10)
[2016-12-22 04:26] LABS: % IMMATURE GRANULYOCYTES 2.1 % (0.0-1.1); ABSOLUTE IMMATURE GRANULOCYTES 0.12 10^3/uL (0.00-0.10); ADD DIFF? NO; ADD MORPH? NO; ADD SCAN? NO; ATYPICAL LYMPHOCYTE FLAG 0 (0-99); FRAGMENT RBC FLAG 0 (0-99); HEMATOCRIT 24.1 % (40.0-51.0); HEMOGLOBIN 8.3 g/dL (13.7-17.5); LEFT SHIFT FLG 20 (0-99); LIPEMIA HEMOLYSIS FLAG 90 (0-99); MEAN CELL HEMOGLOBIN CONCENTR. 34.4 g/dL (32.4-36.7); MEAN PLATELET VOLUME 9.2 fL (8.7-11.7); PLATELET CLUMPS FLAG 10 (0-99); PLATELET COUNT 184 10^3/uL (150-400); RED BLOOD CELL COUNT 2.77 10^6/uL (4.40-6.38); RED CELL DISTRIBUTION WIDTH 15.1 % (11.5-15.2)
[2016-12-22 04:37] LABS: ALBUMIN 2.5 g/dL (3.5-5.0); ANION GAP 11 mEq/L (8-16); CALCIUM 7.6 mg/dL (8.5-10.4); CARBON DIOXIDE 25 mEq/l (22-31); CHLORIDE 98 mEq/L (97-110); GLOMERULAR FILTRATION RATE 9; GLUCOSE 106 mg/dL (70-100); POTASSIUM 3.5 mEq/L (3.5-5.2); SODIUM 134 mEq/L (134-144)
[2016-12-22] MEDS: SODIUM BICARBONATE 650 MG TAB PO SCH (06:13)
--- NOTE | 2016-12-22 07:19 | SOAPPROG ---
SOAP Progress Note Assessment/Plan: Assessment/Plan: ESRD- -3rd consecutive HD session today, tolerating up to chair -preserve veins in Left arm for AVF, he is right-handed -Hep serologies with Hep B SAg negative and Hep B core IgM negative -await Hep B SAb result to confirm immune status -he lives at [address] [place] [address] here in [place] -the two closest clinics are [facility] and [facility] dialysis -calling daughter to discuss choice of placement today and will contact unit tomorrow, will most likely not be ready prior to Fri or Fri Access-possible AVF Friday per Dr. Oscar, appreciated -he had tunneled catheter placed Anemia-oredered iron studies -start EPO and IV iron as outpatient BMD- -calcium corrects to >8 -ordered PTH, Vit D -renal diet with protein supplement AGMA- -CO2 normalizing on HD, may hold bicarb supplement Urinary retention with UTI- -pseudomonas, on zosyn -still has garnica, will need to see urology for follow-up or consider PVR trial prior to discharge -on tamsulosin, continue 12/22/16 07:17 12/22/16 08:19 12/22/16 08:21 Subjective: Patient seen on dialysis. Up to chair awake and SPO. Denies N/V/D or other ROS. Objective: Vital Signs Temp Pulse Resp BP Pulse Ox 36.7 C 66 16 112/60 95 12/22/16 04:00 12/22/16 04:00 12/22/16 04:00 12/22/16 04:00 12/22/16 04:00 Laboratory Results 12/22/16 04:08 12/22/16 04:08 12/21/16 12/22/16 12/23/16 06:59 05:59 05:59 Intake Total Output Total Balance Physical Exam - Physical Exam General Appearance: WD/WN, thin EENT: PERRL/EOMI Neck: non-tender, supple Respiratory: lungs clear Cardiac/Chest: normal peripheral pulses, regular rate, rhythm, other (R TDC in place) Abdomen: normal bowel sounds, non-tender, soft Skin: normal color, pallor Extremities: normal range of motion, non-tender Neuro/Psych: cognition abnormalities ICD10 Worksheet Patient Problems: Problems Problem Status Onset Closed fracture of pelvis Active bladder rupture Active Fever Active Bacteremia Acute Bacteremia due to Klebsiella pneumoniae Acute Lumbar canal stenosis Acute Urinary tract infection Acute Renal failure (ARF), acute on chronic Acute
[2016-12-22] MEDS: PRAVASTATIN SODIUM 20 MG TAB PO SCH (08:42)
[2016-12-22] MEDS: TAMSULOSIN HCL 0.4 MG CAP PO SCH ×2 (08:42→20:39)
[2016-12-22] MEDS: ASPIRIN EC 81 MG TAB PO SCH (08:42)
--- NOTE | 2016-12-22 09:01 | SOAPPROG ---
NIESHA Progress Note Assessment/Plan: Assessment: 81-YEAR-OLD MALE SEEN IN CONSULTATION FOR POSSIBLE DIALYSIS ACCESS / RISKS AND OPTIONS FULLY DISCUSSED WITH THE PATIENT AND FAMILY AND WITH AN LEAD SHAREPOINT DEVELOPER WILL NEED TUNNELED CATHETER AND EVENTUAL AV FISTULA HEENT NEGATIVE/ CHEST CLEAR/ COR REGULAR RHYTHM/ ABDOMEN SOFT NONTENDER / EXTREMITIES FULL RANGE OF MOTION FULL PULSES Plan: IN JUGULAR TUNNELED CATHETER TODAY AND AV FISTULA WHEN STABLE 12/19/16 23:52 12/21/16 20:31 Tolerating dialysis well and catheter function is good/will arrange for AV fistula creation on Friday if medically ready 12/22/16 09:00 VS STABLE/ LABS IMPROVING/ AVF IN AM/ RISKS AND OPTIONS FULLY DISCUSSED IN [facility] Objective: Vital Signs Temp Pulse Resp BP Pulse Ox 36.9 C 58 L 14 104/59 L 95 12/22/16 07:27 12/22/16 07:27 12/22/16 07:27 12/22/16 07:27 12/22/16 07:27 Laboratory Results 12/22/16 04:08 12/22/16 04:08 12/21/16 12/22/16 12/23/16 06:59 05:59 05:59 Intake Total Output Total Balance ICD10 Worksheet Patient Problems: Problems Problem Status Onset Renal failure (ARF), acute on chronic Acute Closed fracture of pelvis Active Fever Active bladder rupture Active Bacteremia Acute Bacteremia due to Klebsiella pneumoniae Acute Lumbar canal stenosis Acute Urinary tract infection Acute
[2016-12-22 09:05] LABS: % SATURATION 21 % (20-55); TOTAL IRON BINDING CAPACITY 206 ug/dL (260-490)
[2016-12-22 09:08] LABS: PTH INTACT NO MINERALS 420.3 pg/ml (10.8-79.4)
--- NOTE | 2016-12-22 11:47 | ASMTCMCOM ---
CM Note CM Note Notes: Patient will be getting an AV fistula and then be doing dialysis as an out-pt. Patient will be assisted at home by [facility] PT/RN. Family has agreed to providing the appropriate supervision at home. Date Signed: 12/22/2016 11:47 AM Electronically Signed By:Natasha Mills LCSW
[2016-12-22] MEDS: OMEGA-3 FATTY ACIDS 1,000 MG CAP PO SCH (12:21)
[2016-12-22] MEDS ORDERED: HEPARIN 50,000 UNIT/10 ML VIAL ONE (12:40)
--- NOTE | 2016-12-22 13:39 | HOSPPROG ---
Hospitalist Progress Note Assessment/Plan: 81-year-old with chronic kidney disease stage 5 presents with nausea and vomiting for 4 days. On admission he was shown to be in acute on chronic renal failure and likely dialysis dependent at this point. He recently has a history of urethral stricture status post dilation, follow-up ultrasound did not reveal any significant changes. He also has a UTI. #. CKD5 now ESRD/HD - He has had a dialysis catheter placed on 12/[address] Oscar is looking into AV fistula formation. Continue dialysis slowly per Nephrology. Family is looking into local dialysis centers for transition to outpatient. Will need to decide on long-term access and timing of this. * Fistula Friday?, then DC if outpt dialysis is set up. #. Pseudomonas Urine Culture - * Treat with Zosyn #. Hypokalemia -on dialysis #. Hx urethral stricture - Dr. Nicole consulted. Continue with garnica catheter. * Will have patient go home with Garnica catheter, may need to exchange prior to discharge given UTI. * Follow up with Urology. #. HTN -Blood pressure have dropped significantly after initiation of dialysis. * Decrease amlodipine, adjust as needed * follow BP #. DM2 - No changes. #. Metabolic Acidosis - secondary to uremia. Patient is on sodium bicarb. #. 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 Epogen. #. Bowel/Bladder - stable. #. DVT prophylaxis - SQ hep. #. Dispo - code status was readdress with palliative care and he remains a full code. Dr. Benson who knows him well thinks he will be able to return home with family (as good support) once stabilized on HD. Subjective: no new complaints Objective: Vital Signs Temp Pulse Resp BP Pulse Ox 36.8 C 63 20 140/76 H 96 12/22/16 12:00 12/22/16 12:00 12/22/16 12:00 12/22/16 12:00 12/22/16 12:00 Laboratory Results 12/22/16 04:08 12/22/16 04:08 12/21/16 12/22/16 12/23/16 06:59 05:59 05:59 Intake Total Output Total Balance - Physical Exam Constitutional: no apparent distress, appears nourished Eyes: PERRL Ears, Nose, Mouth, Throat: moist mucous membranes Cardiovascular: regular rate and rhythym Respiratory: no respiratory distress ICD10 Worksheet Patient Problems: Problems Problem Status Onset Closed fracture of pelvis Active bladder rupture Active Fever Active Bacteremia Acute Bacteremia due to Klebsiella pneumoniae Acute Lumbar canal stenosis Acute Urinary tract infection Acute Renal failure (ARF), acute on chronic Acute
[2016-12-22] MEDS ORDERED: ceFAZolin 2 GM/SWFI 2 GM/20 ML SYR IVP ONE (20:36)
[2016-12-23] MEDS: PIPERACILLIN/TAZO 2.25 GM/DEX 50 ML IV SCH ×3 (04:35→20:52)
[2016-12-23 05:44] LABS: ALBUMIN 2.5 g/dL (3.5-5.0); ANION GAP 10 mEq/L (8-16); CALCIUM 7.6 mg/dL (8.5-10.4); CARBON DIOXIDE 26 mEq/l (22-31); CHLORIDE 99 mEq/L (97-110); GLOMERULAR FILTRATION RATE 15; GLUCOSE 99 mg/dL (70-100); SODIUM 135 mEq/L (134-144)
[2016-12-23] MEDS ORDERED: THROMBIN (BOVINE) 20,000 UNIT VIAL TP ONE (06:26)
[2016-12-23] MEDS ORDERED: BUPIVACAINE 0.5% 30 ML SDV ONE (06:27)
[2016-12-23] MEDS ORDERED: PAPAVERINE HCL 60 MG/2 ML SDV ONE (06:27)
[2016-12-23] MEDS ORDERED: THROMBIN (BOVINE) 5,000 UNIT VIAL TP ONE (06:27)
[2016-12-23] MEDS ORDERED: PROTAMINE SULFATE 50 MG/5 ML VIAL IVP ONE (06:27)
[2016-12-23] MEDS ORDERED: ceFAZolin 2 GM/SWFI 20 ML SYR IVP ONE (06:55)
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
[2016-12-23] MEDS ORDERED: THROMBIN (BOVINE) 20,000 UNIT SPRAY TP ONE (07:14)
[2016-12-23] MEDS ORDERED: PROPOFOL 200 MG/20 ML VIAL ONE (07:25)
[2016-12-23] MEDS ORDERED: fentaNYL 100 MCG/2 ML INJ ONE ×2 (07:40→10:41)
[2016-12-23] MEDS ORDERED: PHENYLEPHRINE HCL 100 MCG/ML SYR ONE (07:40)
[2016-12-23] MEDS ORDERED: epHEDrine SULFATE 10 MG/ML SYR ONE (07:45)
[2016-12-23] MEDS ORDERED: ROCURONIUM 50 MG/5 ML VIAL ONE (07:49)
[2016-12-23] MEDS ORDERED: HEPARIN 10,000 UNIT/10 ML MDV ONE (08:24)
[2016-12-23] MEDS ORDERED: NS 500 ML IV PRN (08:26)
[2016-12-23] MEDS ORDERED: fentaNYL 100 MCG/2 ML INJ IVP PRN (08:26)
[2016-12-23] MEDS ORDERED: LABETALOL HCL 50 MG/10 ML SYR IVP PRN (08:26)
[2016-12-23] MEDS ORDERED: NALOXONE HCL 0.4 MG/ML INJ IVP PRN (08:26)
[2016-12-23] MEDS ORDERED: ONDANSETRON 4 MG/2 ML VIAL IVP PRN (08:26)
[2016-12-23] MEDS ORDERED: SUGAMMADEX SODIUM 200 MG/2 ML VIAL IVP ONE (09:13)
--- NOTE | 2016-12-23 09:32 | POSTOPPROG ---
Post Op Note Date of Operation: 12/23/16 Surgeon: Jayme Oscar [employer] Technician: Elana Olsen Anesthesiologist: Cecil Da Silva Anesthesia: GET(General Endotracheal) Pre-op Diagnosis: CRF Post-op Diagnosis: same Procedure: LUE brachiobasilic AVF c vein transposition Findings: slightly pulsatile thrill, improved with proximal dissection Inf/Abcess present in the surg proc area at time of surgery?: No EBL: Minimal Complications: none Specimen(s): none
[2016-12-23] MEDS ORDERED: HYDROCODONE/APAP 5/325 TAB PO PRN (09:33)
--- NOTE | 2016-12-23 10:06 | POSTANESTH ---
Post Anesthetic Evaluation Cardiovascular Status: Normal, Stable, Similar to Pre-Op Cond Respiratory Status: Normal, Stable, Similar to Pre-op Cond. Level of Consciousness/Mental Status: Can Participate in Eval, Alert and Oriented Pain Control: Adequate, Prn Tx Ordered Nausea/Vomiting Control: Adequate, Prn Tx Ordered Complications Possibly Related to Anesthesia: None Noted (Special thanks to interpretive services for help in consenting and evaluating patient.)
[2016-12-23] MEDS: PRAVASTATIN SODIUM 20 MG TAB PO SCH (12:02)
[2016-12-23] MEDS: OMEGA-3 FATTY ACIDS 1,000 MG CAP PO SCH (12:02)
[2016-12-23] MEDS: ASPIRIN EC 81 MG TAB PO SCH (12:03)
[2016-12-23] MEDS: TAMSULOSIN HCL 0.4 MG CAP PO SCH ×2 (12:03→20:53)
[2016-12-23] MEDS: ACETAMINOPHEN 325 MG TAB PO PRN (12:03)
--- NOTE | 2016-12-23 13:48 | HOSPPROG ---
Hospitalist Progress Note Assessment/Plan: 81-year-old with chronic kidney disease stage 5 presents with nausea and vomiting for 4 days. On admission he was shown to be in acute on chronic renal failure and likely dialysis dependent at this point. He recently has a history of urethral stricture status post dilation, follow-up ultrasound did not reveal any significant changes. He also has a UTI. #. CKD5 now ESRD/HD - He has had a dialysis catheter placed on 12/[address] Oscar is looking into AV fistula formation. Continue dialysis slowly per Nephrology. Family is looking into local dialysis centers for transition to outpatient. Will need to decide on long-term access and timing of this. * Fistula Friday?, then DC once outpt dialysis is set up. #. Pseudomonas Urine Culture - * Treat with Zosyn #. Hypokalemia -on dialysis #. Hx urethral stricture - Dr. Nicole consulted. Continue with garnica catheter. * Will have patient go home with Garnica catheter, may need to exchange as outpatient * Will recheck US per Dr. Nicole request after decompression with garnica. * Follow up with Urology. #. HTN -Blood pressure have dropped significantly after initiation of dialysis. * Decrease amlodipine, adjust as needed * follow BP #. DM2 - No changes. #. Metabolic Acidosis - secondary to uremia. Patient is on sodium bicarb. #. 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 Epogen. #. Bowel/Bladder - stable. #. DVT prophylaxis - SQ hep. #. Dispo - code status was readdress with palliative care and he remains a full code. Dr. Benson who knows him well thinks he will be able to return home with family (as good support) once stabilized on HD. Subjective: no concerns, very tired after fistula placement. Objective: Vital Signs Temp Pulse Resp BP Pulse Ox 36.3 C 57 L 16 108/67 97 12/23/16 12:00 12/23/16 12:00 12/23/16 12:00 12/23/16 12:00 12/23/16 12:00 Laboratory Results 12/22/16 04:08 12/23/16 05:35 12/22/16 12/23/16 12/24/16 05:59 05:59 05:59 Intake Total 650 480 Output Total 1300 325 Balance -650 155 - Physical Exam Constitutional: chronically ill appearing Eyes: PERRL Cardiovascular: regular rate and rhythym Respiratory: no respiratory distress ICD10 Worksheet Patient Problems: Problems Problem Status Onset Closed fracture of pelvis Active bladder rupture Active Fever Active Bacteremia Acute Bacteremia due to Klebsiella pneumoniae Acute Lumbar canal stenosis Acute Urinary tract infection Acute Renal failure (ARF), acute on chronic Acute
--- NOTE | 2016-12-23 15:01 | SOAPPROG ---
SOAP Progress Note Assessment/Plan: Assessment/Plan: ESRD: Pt s/p 3 treatments of HD. - Will plan on HD tomorrow. - I have discussed with CM, working on outpatient dialysis unit placement. HTN: BP actually running low, will d/c amlodipine and continue to monitor. RUKHSANA: Phos 3.7, no need for phos binder, will continue to monitor. Access: has tunneled catheter in place and fistula placed today. Subjective: No acute events overnight. Pt had fistula placed in L arm today, now resting comfortably. Objective: Vital Signs Temp Pulse Resp BP Pulse Ox 36.3 C 57 L 16 108/67 97 12/23/16 12:00 12/23/16 12:00 12/23/16 12:00 12/23/16 12:00 12/23/16 12:00 Laboratory Results 12/22/16 04:08 12/23/16 05:35 12/22/16 12/23/16 12/24/16 05:59 05:59 05:59 Intake Total 650 480 Output Total 1300 325 Balance -650 155 General: alert and oriented, no acute distress Eyes; EOMI, PERRL OP: Clear CV: RRR Resp: nonlabored respirations Abd: Soft, NT Ext: no edema BLE Neuro: no asterixis Access: RIJ tunneled catheter, LUE bandaged ICD10 Worksheet Patient Problems: Problems Problem Status Onset Renal failure (ARF), acute on chronic Acute Closed fracture of pelvis Active Fever Active bladder rupture Active Bacteremia Acute Bacteremia due to Klebsiella pneumoniae Acute Lumbar canal stenosis Acute Urinary tract infection Acute
--- NOTE | 2016-12-23 17:58 | ASMTCMCOM ---
CM Note CM Note Notes: Pt had surgery today for AV fistula. Dc poc is for pt to dc home where he lives w/ and be followed by [facility]. He will also need to be set up with dialysis center. Spoke w/Dr Vergara (renal) today who said pt will be dialyzed tomorrow and may be ready for dc home after that but we will need to set up dialysis. RN said that Agnes ([phone]), pt's daughter, was the person to call to discuss dc poc. I was unable to reach her but did speak with daughter, Bill ([phone]); she is interested first, in [facility] if they have AM appt available or [facility] (still prefers AM appt). Too late in day to reach centers now, CM will have to follow up in AM. Date Signed: 12/23/2016 05:58 PM Electronically Signed By:Mary Garcia RN
[2016-12-24 05:05] LABS: ALBUMIN 2.5 g/dL (3.5-5.0); ANION GAP 15 mEq/L (8-16); CALCIUM 7.4 mg/dL (8.5-10.4); CARBON DIOXIDE 24 mEq/l (22-31); CHLORIDE 100 mEq/L (97-110); CREATININE 5.4 mg/dL (0.7-1.3); GLOMERULAR FILTRATION RATE 10; GLUCOSE 90 mg/dL (70-100); SODIUM 139 mEq/L (134-144)
[2016-12-24] MEDS: PIPERACILLIN/TAZO 2.25 GM/DEX 50 ML IV SCH ×3 (05:45→22:56)
[2016-12-24] MEDS ORDERED: EPOETIN ALFA 10,000 UNIT/ML VIAL SC SCH (11:30)
--- NOTE | 2016-12-24 11:32 | SOAPPROG ---
SOAP Progress Note Assessment/Plan: Assessment: 1. ESRD Awaiting placement. Seen on dialysis. Stable. Eating well. Breathing is ok. Volume status ok. 2. Anemia Start on Epo. 3. DC Planning To go home with services. Plan: 12/24/16 11:29 Subjective: Doing ok on dialysis. Objective: Vital Signs Temp Pulse Resp BP Pulse Ox 36.8 C 75 16 109/62 91 L 12/24/16 07:22 12/24/16 07:22 12/24/16 07:22 12/24/16 07:22 12/24/16 07:22 Laboratory Results 12/22/16 04:08 12/24/16 03:57 12/23/16 12/24/16 12/25/16 05:59 05:59 05:59 Intake Total 650 1040 Output Total 1300 775 Balance -650 265 Physical Exam - Physical Exam General Appearance: no apparent distress Respiratory: lungs clear Cardiac/Chest: regular rate, rhythm Extremities: normal inspection, other (New LUE fistula) Neuro/Psych: oriented x 3 ICD10 Worksheet Patient Problems: Problems Problem Status Onset Renal failure (ARF), acute on chronic Acute Closed fracture of pelvis Active Fever Active bladder rupture Active Bacteremia Acute Bacteremia due to Klebsiella pneumoniae Acute Lumbar canal stenosis Acute Urinary tract infection Acute
[2016-12-24] MEDS: TAMSULOSIN HCL 0.4 MG CAP PO SCH ×2 (13:46→20:40)
[2016-12-24] MEDS: PRAVASTATIN SODIUM 20 MG TAB PO SCH (13:46)
[2016-12-24] MEDS: ASPIRIN EC 81 MG TAB PO SCH (13:46)
--- NOTE | 2016-12-24 13:51 | SOAPPROG ---
SOAP Progress Note Assessment/Plan: Assessment/Plan: 81 Y M CRF now on HD c tunneled neck cath, s/p brachiobasilic AVF c transposition, POD#1. Seen in HD. Neck cath appears to be functioning well. Good even thrill and bruit. Inc is cdi c opal. Well dressed with light, noncompressive, dressing. Hand is warm and strong. Palpable radial pulse. Once d/c'ed, plan for f/u in 7-[address] Oscar/Silvino. 12/24/16 13:49 Objective: Vital Signs Temp Pulse Resp BP Pulse Ox 36.8 C 75 16 109/62 91 L 12/24/16 07:22 12/24/16 07:22 12/24/16 07:22 12/24/16 07:22 12/24/16 07:22 Laboratory Results 12/22/16 04:08 12/24/16 03:57 12/23/16 12/24/16 12/25/16 05:59 05:59 05:59 Intake Total 650 1040 Output Total 1300 775 Balance -650 265 ICD10 Worksheet Patient Problems: Problems Problem Status Onset Renal failure (ARF), acute on chronic Acute Closed fracture of pelvis Active Fever Active bladder rupture Active Bacteremia Acute Bacteremia due to Klebsiella pneumoniae Acute Lumbar canal stenosis Acute Urinary tract infection Acute
[2016-12-24] MEDS ORDERED: HEPARIN 50,000 UNIT/10 ML VIAL ONE (14:02)
--- NOTE | 2016-12-24 15:55 | HOSPPROG ---
Hospitalist Progress Note Assessment/Plan: 81-year-old with chronic kidney disease stage 5 presents with nausea and vomiting for 4 days. On admission he was shown to be in acute on chronic renal failure and likely dialysis dependent at this point. He recently has a history of urethral stricture status post dilation, follow-up ultrasound did not reveal any significant changes. He also has a UTI. #. CKD5 now ESRD/HD - He has had a dialysis catheter placed on 12/19 and brachiobasilic AV Fistula placed 12/23 * Awaiting arrangement for outpatient dialysis and then patient can be discharged * inpatient HD per renal * stable fluid status. #. Pseudomonas Urine Culture - * Treat with Zosyn * DC anbx on discharge. #. Hypokalemia -on dialysis #. Hx urethral stricture - Dr. Nicole consulted. Continue with garnica catheter. * Will have patient go home with Garnica catheter, may need to exchange as outpatient * US shows improved hydronephrosis after garnica placed. * Follow up with Urology. Dr. Nicole can decide on discontinuing or changing out garnica. #. HTN -Blood pressure have dropped significantly after initiation of dialysis. * DC amlodipine and follow * follow BP #. DM2 - No changes. #. Metabolic Acidosis - secondary to uremia. Patient is on sodium bicarb. #. 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 Epogen. #. Bowel/Bladder - stable. #. DVT prophylaxis - SQ hep. #. Dispo - code status was readdress with palliative care and he remains a full code. Dr. Benson who knows him well thinks he will be able to return home with family (as good support) once stabilized on HD. Family looking into outpatient dialysis. Waiting of the set up of that. Subjective: no new complaints today. no cp or sob. Objective: Vital Signs Temp Pulse Resp BP Pulse Ox 36.9 C 100 20 138/77 H 92 12/24/16 15:08 12/24/16 15:08 12/24/16 15:08 12/24/16 15:08 12/24/16 15:08 Laboratory Results 12/22/16 04:08 12/24/16 03:57 12/23/16 12/24/16 12/25/16 05:59 05:59 05:59 Intake Total 650 1040 Output Total 1300 775 Balance -650 265 - Physical Exam Constitutional: chronically ill appearing Cardiovascular: regular rate and rhythym Respiratory: no respiratory distress Gastrointestinal: normoactive bowel sounds ICD10 Worksheet Patient Problems: Problems Problem Status Onset Closed fracture of pelvis Active bladder rupture Active Fever Active Bacteremia Acute Bacteremia due to Klebsiella pneumoniae Acute Lumbar canal stenosis Acute Urinary tract infection Acute Renal failure (ARF), acute on chronic Acute
[2016-12-24] MEDS: OMEGA-3 FATTY ACIDS 1,000 MG CAP PO SCH (17:51)
[2016-12-25] MEDS: PIPERACILLIN/TAZO 2.25 GM/DEX 50 ML IV SCH ×3 (06:00→21:03)
[2016-12-25] MEDS: ASPIRIN EC 81 MG TAB PO SCH (10:00)
[2016-12-25] MEDS: TAMSULOSIN HCL 0.4 MG CAP PO SCH ×2 (10:00→21:03)
[2016-12-25] MEDS: PRAVASTATIN SODIUM 20 MG TAB PO SCH (10:00)
--- NOTE | 2016-12-25 11:45 | SOAPPROG ---
SOAP Progress Note Assessment/Plan: Assessment: 1. Renal failure. ALEXSANDRA from obstruction on CKD V, likely esrd. CM/family working on placement at [facility] dialysis unit. Will order CXR. Hep B SAg neg, SAb neg, Core IgG +, Core IgM neg. Most likely prior exposure. Check HBV quant PCR. HD again tomorrow here. 2. AVF. Appreciate Dr. Oscar placing Friday. Good thrill. 3. Anemia. continue procrit. Order IV ferrlecit. 4. Hyperphosphatemia. Mild, no binder yet. 5. Urine retention. Urethral stricture s/p dilation. Has garnica in place, will d/c with this. Mgmt per Dr. Nicole. On abx for UTI, flomax. Plan: 12/25/16 11:43 12/25/16 11:44 12/25/16 11:47 12/25/16 11:51 Subjective: No nausea. Dialysis went fine yesterday. Per RN has had some visual changes. Pt did not mention this to me. Objective: Vital Signs Temp Pulse Resp BP Pulse Ox 36.3 C 77 16 121/65 H 92 12/25/16 11:23 12/25/16 11:23 12/25/16 11:23 12/25/16 11:23 12/25/16 11:23 Laboratory Results 12/22/16 04:08 12/24/16 03:57 12/24/16 12/25/16 12/26/16 05:59 05:59 05:59 Intake Total 1040 850 Output Total 775 900 Balance 265 -50 RRR, no m/g/r CTAB Abdom soft, nontender No edema L UE AVF with good bruit, bandage with mild blood ICD10 Worksheet Patient Problems: Problems Problem Status Onset Renal failure (ARF), acute on chronic Acute Closed fracture of pelvis Active Fever Active bladder rupture Active Bacteremia Acute Bacteremia due to Klebsiella pneumoniae Acute Lumbar canal stenosis Acute Urinary tract infection Acute
[2016-12-25] MEDS: OMEGA-3 FATTY ACIDS 1,000 MG CAP PO SCH (13:56)
--- NOTE | 2016-12-25 14:23 | HOSPPROG ---
Hospitalist Progress Note Assessment/Plan: New patient encounter 81-year-old with chronic kidney disease stage 5 presents with nausea and vomiting for 4 days. On admission he was shown to be in acute on chronic renal failure and likely dialysis dependent at this point. He recently has a history of urethral stricture status post dilation, follow-up ultrasound did not reveal any significant changes. He also has a UTI. #. CKD5 now ESRD/HD - He has had a dialysis catheter placed on 12/19 and brachiobasilic AV Fistula placed 12/23 * Awaiting arrangement for outpatient dialysis and then patient can be discharged. He will likely be set up with [facility]. * inpatient HD per renal, next scheduled 12/26 * stable fluid status. #. Pseudomonas Urine Culture - * Treat with Zosyn * DC abx on discharge. #. Hypokalemia -on dialysis #. Hx urethral stricture - Dr. Nicole consulted. Continue with garnica catheter. * Will have patient go home with Garnica catheter, may need to exchange as outpatient * US shows improved hydronephrosis after garnica placed. * Follow up with Urology. Dr. Nicole can decide on discontinuing or changing out garnica. #. HTN -Blood pressure have dropped significantly after initiation of dialysis. * DC amlodipine and follow * follow BP #. DM2 - No changes. #. Metabolic Acidosis - secondary to uremia. Patient is on sodium bicarb. #. 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 Epogen. #. Bowel/Bladder - stable. #. DVT prophylaxis - SQ hep. #. Dispo - code status was readdress with palliative care and he remains a full code. Dr. Benson who knows him well thinks he will be able to return home with family (as good support) once stabilized on HD. Family looking into outpatient dialysis. Waiting of the set up of that. Subjective: no O/N events. Doing well. No CP or SOB. Dialysis tomorrow. Objective: Vital Signs Temp Pulse Resp BP Pulse Ox 36.3 C 77 16 121/65 H 92 12/25/16 11:23 12/25/16 11:23 12/25/16 11:23 12/25/16 11:23 12/25/16 11:23 Laboratory Results 12/22/16 04:08 12/24/16 03:57 12/24/16 12/25/1612/26/17 05:59 05:59 05:59 Intake Total 1040 850 Output Total 775 900 Balance 265 -50 - Physical Exam Constitutional: chronically ill appearing Eyes: PERRL, EOMI Ears, Nose, Mouth, Throat: moist mucous membranes, hearing normal Cardiovascular: regular rate and rhythym Respiratory: no respiratory distress, no rales or rhonchi Gastrointestinal: normoactive bowel sounds Genitourinary: no bladder fullness, garnica in urethra Skin: warm Neurologic: AAOx3 Psychiatric: interacting appropriately, not anxious, not encephalopathic ICD10 Worksheet Patient Problems: Problems Problem Status Onset Renal failure (ARF), acute on chronic Acute Closed fracture of pelvis Active Fever Active bladder rupture Active Bacteremia Acute Bacteremia due to Klebsiella pneumoniae Acute Lumbar canal stenosis Acute Urinary tract infection Acute
--- NOTE | 2016-12-25 16:41 | ASMTCMCOM ---
CM Note CM Note Notes: 12/25/2016 Case Management Note Odalys the intrepreter assisted case management with translation. Attempted to meet w/pt. Pt was sound asleep. Able to reach Suly on the phone. Pt is set up with [facility] in [address] (p) [phone] (f) Bebe is the RN at [facility] for questions. First appointment is FridayDec 27 at 0930. This is a temporary assigned time and will be adjusted for his MWF schedule when he arrives at [facility]. Odalys left written instructions in Occitan in the room for pt and . Case Management available for any further needs. Date Signed: 12/25/2016 04:41 PM Electronically Signed By:Candy Proctor RN
[2016-12-25 19:47] LABS: 25-HYDROXY D2 <4.0 ng/mL; 25-HYDROXY D3 29 ng/mL; VITAMIN D 25-HYDROXY SERUM 29 ng/mL
[2016-12-26 04:28] LABS: % IMMATURE GRANULYOCYTES 0.8 % (0.0-1.1); ABSOLUTE IMMATURE GRANULOCYTES 0.05 10^3/uL (0.00-0.10); ADD DIFF? NO; ADD MORPH? NO; ADD SCAN? NO; ATYPICAL LYMPHOCYTE FLAG 0 (0-99); FRAGMENT RBC FLAG 0 (0-99); HEMATOCRIT 22.7 % (40.0-51.0); HEMOGLOBIN 7.2 g/dL (13.7-17.5); LEFT SHIFT FLG 0 (0-99); LIPEMIA HEMOLYSIS FLAG 80 (0-99); MEAN CELL HEMOGLOBIN CONCENTR. 31.7 g/dL (32.4-36.7); MEAN CELL VOLUME 94.6 fL (81.5-99.8); MEAN PLATELET VOLUME 9.4 fL (8.7-11.7); PLATELET CLUMPS FLAG 0 (0-99); PLATELET COUNT 176 10^3/uL (150-400); RED CELL DISTRIBUTION WIDTH 15.4 % (11.5-15.2)
[2016-12-26 04:49] LABS: ALBUMIN 2.5 g/dL (3.5-5.0); ANION GAP 13 mEq/L (8-16); CALCIUM 7.7 mg/dL (8.5-10.4); CARBON DIOXIDE 25 mEq/l (22-31); CHLORIDE 104 mEq/L (97-110); CREATININE 5.8 mg/dL (0.7-1.3); GLOMERULAR FILTRATION RATE 9; GLUCOSE 93 mg/dL (70-100); POTASSIUM 4.4 mEq/L (3.5-5.2); SODIUM 142 mEq/L (134-144)
[2016-12-26] MEDS: PIPERACILLIN/TAZO 2.25 GM/DEX 50 ML IV SCH ×3 (05:47→21:22)
[2016-12-26] MEDS: SODIUM FERRIC GLUCONAT/SUCROSE 125 MG in NS 100 ML IV SCH (08:49)
[2016-12-26] MEDS: ASPIRIN EC 81 MG TAB PO SCH (08:56)
[2016-12-26] MEDS: PRAVASTATIN SODIUM 20 MG TAB PO SCH (08:56)
[2016-12-26] MEDS: TAMSULOSIN HCL 0.4 MG CAP PO SCH ×2 (08:56→21:22)
--- NOTE | 2016-12-26 09:31 | SOAPPROG ---
SOAP Progress Note Assessment/Plan: Assessment:Plan: ESRD-for dialysis today -outpatient Hd MWF -his Hep B core total was positive -HepBSAb and HepBSAg negative -Hep B PCR ordered to make sure no active infection -he cannot be admitted to an outpatient unit until his status is confirmed by pcr result Access-per Dr. Oscar -he had tunneled catheter placed -AVF patent Disposition-he is getting stabilized on Hd -he and his family have chosen dialysis center for his outpatient care -I reviewed information on the dialysis facility compare website with the spouse today -I have encouraged her to visit the clinics in the area Anemia-on iron -on EPO -given drop in Hct, will transfuse today 12/26/16 09:27 Subjective: stable overnite, slowly better Objective: Vital Signs Temp Pulse Resp BP Pulse Ox 36.6 C 66 14 102/56 L 88 L 12/26/16 07:06 12/26/16 07:06 12/26/16 07:06 12/26/16 07:06 12/26/16 07:06 Laboratory Results 12/26/16 03:32 12/26/16 03:32 12/25/16 12/26/16 12/27/16 05:59 05:59 05:59 Intake Total 850 600 Output Total 900 1000 Balance -50 -400 Physical Exam - Physical Exam General Appearance: alert, no apparent distress EENT: normal ENT inspection Neck: normal inspection Respiratory: lungs clear, normal breath sounds, No respiratory distress Cardiac/Chest: regular rate, rhythm, No systolic murmur Abdomen: normal bowel sounds, non-tender, soft Skin: normal color, warm/dry Extremities: other (AVF patent), No swelling ICD10 Worksheet Patient Problems: Problems Problem Status Onset Renal failure (ARF), acute on chronic Acute Closed fracture of pelvis Active Fever Active bladder rupture Active Bacteremia Acute Bacteremia due to Klebsiella pneumoniae Acute Lumbar canal stenosis Acute Urinary tract infection Acute
--- NOTE | 2016-12-26 09:39 | SOAPPROG ---
NIESHA Progress Note Assessment/Plan: Assessment: 81-YEAR-OLD MALE SEEN IN CONSULTATION FOR POSSIBLE DIALYSIS ACCESS / RISKS AND OPTIONS FULLY DISCUSSED WITH THE PATIENT AND FAMILY AND WITH AN RESTAURANT HOURLY TEAM MEMBER WILL NEED TUNNELED CATHETER AND EVENTUAL AV FISTULA HEENT NEGATIVE/ CHEST CLEAR/ COR REGULAR RHYTHM/ ABDOMEN SOFT NONTENDER / EXTREMITIES FULL RANGE OF MOTION FULL PULSES Plan: IN JUGULAR TUNNELED CATHETER TODAY AND AV FISTULA WHEN STABLE 12/19/16 23:52 12/21/16 20:31 Tolerating dialysis well and catheter function is good/will arrange for AV fistula creation on Friday if medically ready 12/22/16 09:00 VS STABLE/ LABS IMPROVING/ AVF IN AM/ RISKS AND OPTIONS FULLY DISCUSSED IN [facility] 12/26/16 09:38 WOUND OK, AFEBRILE, AVF FLOW GOOD/ PLAN PER IM Objective: Vital Signs Temp Pulse Resp BP Pulse Ox 36.6 C 66 14 102/56 L 88 L 12/26/16 07:06 12/26/16 07:06 12/26/16 07:06 12/26/16 07:06 12/26/16 07:06 Laboratory Results 12/26/16 03:32 12/26/16 03:32 12/25/16 12/26/16 12/27/16 05:59 05:59 05:59 Intake Total 850 600 Output Total 900 1000 Balance -50 -400 ICD10 Worksheet Patient Problems: Problems Problem Status Onset Renal failure (ARF), acute on chronic Acute Closed fracture of pelvis Active Fever Active bladder rupture Active Bacteremia Acute Bacteremia due to Klebsiella pneumoniae Acute Lumbar canal stenosis Acute Urinary tract infection Acute
--- NOTE | 2016-12-26 13:19 | HOSPPROG ---
Hospitalist Progress Note Assessment/Plan: 81-year-old with chronic kidney disease stage 5 presents with nausea and vomiting for 4 days. On admission he was shown to be in acute on chronic renal failure and likely dialysis dependent at this point. He recently has a history of urethral stricture status post dilation, follow-up ultrasound did not reveal any significant changes. He also has a UTI. #. CKD5 now ESRD/HD - He has had a dialysis catheter placed on 12/19 and brachiobasilic AV Fistula placed 12/23 * OP dialysis set up with [facility] pending result of Hep B PCR * inpatient HD per renal * stable fluid status. #. Pseudomonas Urine Culture - * Treat with Zosyn * DC abx on discharge. #. Hypokalemia -on dialysis #. Hx urethral stricture - Dr. Nicole consulted. Continue with garnica catheter. * Will have patient go home with Garnica catheter, may need to exchange as outpatient * US shows improved hydronephrosis after garnica placed. * Follow up with Urology. Dr. Nicole can decide on discontinuing or changing out garnica. #. HTN -Blood pressure have dropped significantly after initiation of dialysis. * DC amlodipine and follow * follow BP #. DM2 - No changes. #. Metabolic Acidosis - secondary to uremia. Patient is on sodium bicarb. #. 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 Epogen. Will receive 2 units today #. Bowel/Bladder - stable. #. DVT prophylaxis - SQ hep. #. Dispo - code status was readdress with palliative care and he remains a full code. Dr. Benson who knows him well thinks he will be able to return home with family (as good support) once stabilized on HD. Discharge pending Hep B PCR. Subjective: getting HD. No CP or SOB Objective: Vital Signs Temp Pulse Resp BP Pulse Ox 36.6 C 66 14 102/56 L 88 L 12/26/16 07:06 12/26/16 07:06 12/26/16 07:06 12/26/16 07:06 12/26/16 07:06 Laboratory Results 12/26/16 03:32 12/26/16 03:32 12/25/16 12/26/16 12/27/16 05:59 05:59 05:59 Intake Total 850 600 Output Total 900 1000 Balance -50 -400 - Physical Exam Constitutional: no apparent distress Eyes: PERRL Ears, Nose, Mouth, Throat: moist mucous membranes, hearing normal Cardiovascular: regular rate and rhythym, No edema Respiratory: no respiratory distress, reduced air movement Gastrointestinal: normoactive bowel sounds, soft, non-tender abdomen Skin: warm Psychiatric: interacting appropriately, not anxious, poor insight ICD10 Worksheet Patient Problems: Problems Problem Status Onset Renal failure (ARF), acute on chronic Acute Closed fracture of pelvis Active Fever Active bladder rupture Active Bacteremia Acute Bacteremia due to Klebsiella pneumoniae Acute Lumbar canal stenosis Acute Urinary tract infection Acute
[2016-12-26] MEDS: OMEGA-3 FATTY ACIDS 1,000 MG CAP PO SCH (13:44)
[2016-12-27 05:12] LABS: ALBUMIN 2.6 g/dL (3.5-5.0); ANION GAP 12 mEq/L (8-16); CALCIUM 8.1 mg/dL (8.5-10.4); CARBON DIOXIDE 27 mEq/l (22-31); CHLORIDE 102 mEq/L (97-110); CREATININE 4.5 mg/dL (0.7-1.3); GLOMERULAR FILTRATION RATE 13; GLUCOSE 144 mg/dL (70-100); POTASSIUM 4.1 mEq/L (3.5-5.2); SODIUM 141 mEq/L (134-144)
[2016-12-27] MEDS: PIPERACILLIN/TAZO 2.25 GM/DEX 50 ML IV SCH ×2 (05:30→14:12)
[2016-12-27 08:04] VITALS: O2SAT 92
--- NOTE | 2016-12-27 08:37 | SOAPPROG ---
NIESHA Progress Note Assessment/Plan: Assessment:Plan: ESRD-for dialysis today -outpatient Hd MWF -his Hep B core total was positive -HepBSAb and HepBSAg negative -Hep B PCR ordered to make sure no active infection -he cannot be admitted to an outpatient unit until his status is confirmed by pcr result -this result is still pending this morning Access-per Dr. Oscar -he had tunneled catheter placed -AVF patent Disposition-he is getting stabilized on Hd -he and his family have chosen dialysis center for his outpatient care Anemia-on iron -on EPO -transfused yesterday 12/27/16 08:36 Subjective: stable overnite Objective: Vital Signs Temp Pulse Resp BP Pulse Ox 36.7 C 60 16 118/72 92 12/27/16 08:00 12/27/16 08:00 12/27/16 08:00 12/27/16 08:00 12/27/16 08:00 Laboratory Results 12/26/16 03:32 12/27/16 04:17 12/26/16 12/27/16 12/28/16 05:59 05:59 05:59 Intake Total 600 450 Output Total 1000 950 Balance -400 -500 Physical Exam - Physical Exam General Appearance: alert, no apparent distress, thin EENT: normal ENT inspection Neck: normal inspection Respiratory: lungs clear, normal breath sounds, No respiratory distress Cardiac/Chest: regular rate, rhythm Abdomen: normal bowel sounds, non-tender, soft Skin: normal color, warm/dry Extremities: No swelling Neuro/Psych: no motor/sensory deficits, alert, normal mood/affect ICD10 Worksheet Patient Problems: Problems Problem Status Onset Renal failure (ARF), acute on chronic Acute Closed fracture of pelvis Active Fever Active bladder rupture Active Bacteremia Acute Bacteremia due to Klebsiella pneumoniae Acute Lumbar canal stenosis Acute Urinary tract infection Acute
[2016-12-27] MEDS: PRAVASTATIN SODIUM 20 MG TAB PO SCH (09:22)
[2016-12-27] MEDS: ASPIRIN EC 81 MG TAB PO SCH (09:22)
[2016-12-27] MEDS: TAMSULOSIN HCL 0.4 MG CAP PO SCH (09:22)
[2016-12-27] MEDS: SODIUM FERRIC GLUCONAT/SUCROSE 125 MG in NS 100 ML IV SCH (09:23)
[2016-12-27 11:55] VITALS: TEMP 98.3
--- NOTE | 2016-12-27 13:56 | HOSPPROG ---
Hospitalist Progress Note Assessment/Plan: 81-year-old with chronic kidney disease stage 5 presents with nausea and vomiting for 4 days. On admission he was shown to be in acute on chronic renal failure and likely dialysis dependent at this point. He recently has a history of urethral stricture status post dilation, follow-up ultrasound did not reveal any significant changes. He also has a UTI. #. CKD5 now ESRD/HD - He has had a dialysis catheter placed on 12/19 and brachiobasilic AV Fistula placed 12/23 * OP dialysis set up with [facility] pending result of Hep B PCR * inpatient HD per renal * stable fluid status. #. Pseudomonas Urine Culture - * s/p Zosyn. treated for 7 days #. Hypokalemia -on dialysis #. Hx urethral stricture - Dr. Nicole consulted. Continue with garnica catheter. * Will have patient go home with Garnica catheter, may need to exchange as outpatient * US shows improved hydronephrosis after garnica placed. * Follow up with Urology. Dr. Nicole can decide on discontinuing or changing out garnica. #. HTN -Blood pressure have dropped significantly after initiation of dialysis. * DC amlodipine and follow * follow BP #. DM2 - No changes. #. Metabolic Acidosis - secondary to uremia. Patient is on sodium bicarb. #. 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 Epogen. s/p 2 units PRBC transfusion on 12/26 #. Bowel/Bladder - stable. #. DVT prophylaxis - SQ hep. #. code status was readdress with palliative care and he remains a full code. Dr. Benson who knows him well thinks he will be able to return home with family (as good support) once stabilized on HD. Dispo: As of this morning, Hep B PCR is pending. Discharge pending Hep B PCR. Subjective: no complaints. No CP or SOB. No N/V Objective: Vital Signs Temp Pulse Resp BP Pulse Ox 36.8 C 70 17 141/71 H 92 12/27/16 11:55 12/27/16 11:55 12/27/16 11:55 12/27/16 11:55 12/27/16 11:55 Laboratory Results 12/26/16 03:32 12/27/16 04:17 12/26/16 12/27/16 12/28/16 05:59 05:59 05:59 Intake Total 600 450 120 Output Total 1000 950 Balance -400 -500 120 - Physical Exam Constitutional: no apparent distress, appears nourished Eyes: PERRL, EOMI Ears, Nose, Mouth, Throat: moist mucous membranes, hearing normal Cardiovascular: regular rate and rhythym Respiratory: no respiratory distress Gastrointestinal: normoactive bowel sounds Skin: warm Neurologic: AAOx3 Psychiatric: interacting appropriately, not anxious, not encephalopathic ICD10 Worksheet Patient Problems: Problems Problem Status Onset Renal failure (ARF), acute on chronic Acute Closed fracture of pelvis Active Fever Active bladder rupture Active Bacteremia Acute Bacteremia due to Klebsiella pneumoniae Acute Lumbar canal stenosis Acute Urinary tract infection Acute
[2016-12-27] MEDS: OMEGA-3 FATTY ACIDS 1,000 MG CAP PO SCH (14:12)
--- NOTE | 2016-12-27 14:19 | SOAPPROG ---
SOAP Progress Note Assessment/Plan: Assessment:Plan: Hep B status indicates that he is not immune and is not infected/exposed. Hep B DNA not detected 12/27/16 14:17 Objective: Vital Signs Temp Pulse Resp BP Pulse Ox 36.8 C 70 17 141/71 H 92 12/27/16 11:55 12/27/16 11:55 12/27/16 11:55 12/27/16 11:55 12/27/16 11:55 Laboratory Results 12/26/16 03:32 12/27/16 04:17 12/26/16 12/27/16 12/28/16 05:59 05:59 05:59 Intake Total 600 450 120 Output Total 1000 950 Balance -400 -500 120 ICD10 Worksheet Patient Problems: Problems Problem Status Onset Renal failure (ARF), acute on chronic Acute Closed fracture of pelvis Active Fever Active bladder rupture Active Bacteremia Acute Bacteremia due to Klebsiella pneumoniae Acute Lumbar canal stenosis Acute Urinary tract infection Acute
--- NOTE | 2016-12-27 15:03 | PDDCSUM ---
Discharge Summary Discharge Summary: HPI/Hospital Course 81-year-old with chronic kidney disease stage 5 presents with nausea and vomiting for 4 days. On admission he was shown to be in acute on chronic renal failure and likely dialysis dependent at this point. He recently has a history of urethral stricture status post dilation, follow-up ultrasound did not reveal any significant changes. He had a diaysis catheter place on 12/19. He has been getting dialysis. As his Hep B w/u is negative, he is cleared for discharge. DDX: #. CKD5 now ESRD/HD - He has had a dialysis catheter placed on 12/19 and brachiobasilic AV Fistula placed 12/23 * OP dialysis set up with [facility] #. Pseudomonas Urine Culture - * s/p Zosyn. treated for 7 days #. Hypokalemia -on dialysis #. Hx urethral stricture - Dr. Nicole consulted. Continue with garnica catheter. * Will have patient go home with Garnica catheter, may need to exchange as outpatient * US shows improved hydronephrosis after garnica placed. * Follow up with Urology. Dr. Nicole can decide on discontinuing or changing out garnica. #. HTN -Blood pressure have dropped significantly after initiation of dialysis. * DC amlodipine and follow * follow BP #. DM2 - No changes. #. Metabolic Acidosis - secondary to uremia. Patient is on sodium bicarb. #. 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 Epogen. s/p 2 units PRBC transfusion on 12/26 #. code status was readdress with palliative care and he remains a full code. Exam: see my progress note from today discharge meds: see med rec. total time spent on discharge is 35 minutes
--- NOTE | 2016-12-27 15:21 | PDIAF ---
- Diagnosis Diagnosis: acute cystitis, renal failure. will need [facility] with [facility] Code Status: Full Code - Medication Management Discharge Medications: Medications to Continue on Transfer Tamsulosin HCl [Flomax 0.4 MG (*)] 0.4 mg PO BID 01/27/12 [Last Taken 12/16/16] Aspirin EC [Aspirin EC 81 mg (*)] 81 mg PO DAILY 12/17/16 [Last Taken 12/16/16] Cholecalciferol Vit D3 [Vitamin D3 2000 units tab (OTC)] 2,000 units PO DAILY [Last Taken 12/16/16] Lovastatin 20 mg PO DAILY 12/17/16 [Last Taken 12/16/16] [place]-3 Fatty Acids [Fish Oil 1000 mg (*)] 1,000 mg PO DAILY@12 12/17/16 [Last Taken 12/16/16] Discharge Medications: Refer to the Discharge Home Medication list for PRN reason. - Orders Services needed: Home Care, Registered Nurse, Physical Therapy Home Care Face to Face: I certify that this patient was under my care and that I had the required [id number] encounter meeting the encounter requirements on the discharge day. My findings support the fact that the patient is homebound as defined in Home Care Face to Face Continued: CMS Chapter 7 Medicare Benefits Manual 30.1.1 , The condition of the patient is such that there exists a normal inability to leave home and consequently, leaving home would require a considerable and taxing effort. Diet Recommendation: no restrictions on diet Diet Texture: Regular Texture Diet - Follow Up Care Current Providers and Referrals: [facility] [Other] - As per Instructions Jayme Oscar MD [Medical Doctor] - follow up in 10 days (please call for an appt)
--- NOTE | 2016-12-27 16:40 | ASMTCMCOM ---
CM Note CM Note Notes: Pt was not able to attend first dialysis at [facility] today at 09:30 due to still being in the hospital, [facility] alerted and they will keep him on schedule for Friday at 09:30, pt updated. Pt will be dialyzed today in hosp. Pt medically stable for d/c with [facility] RN/PT. Orders to be obtained in [facility]. Date Signed: 12/27/2016 04:39 PM Electronically Signed By:FATMATA Oneill
[2016-12-27 18:49] VITALS: BP 133/84; PULSE 83; RESP 16
[2016-12-27] MEDS ORDERED: HEPARIN 50,000 UNIT/10 ML VIAL ONE (18:51)
--- NOTE | 2016-12-28 14:41 | ASDISCHSUM ---
Discharge Information Plan Status:Home with Home Health Medically Cleared to Leave:12/26/2016 Discharge Date:12/27/2016 07:54 PM CM D/C Disposition:Home Health Service ADT D/C Disposition:Home, Routine, Self-Care Projected Discharge Date:12/27/2016 12:00 AM Transportation at D/C:Family Discharge Delay Reason: Follow-Up Date:12/27/2016 12:00 AM Discharge Slot: Final Diagnosis:CKD5 now ESRD/HD Placement Information Patient Contact Information Contact Name:YASSINE Relationship: Address:[address] Work Phone: [facility]:[employer] Alternate Phone: [facility]/Zip Code:[place] [address] Email: Financial Information Financial Class: Primary Plan Desc:MEDICARE INPATIENT Primary Plan Number:[id number] Secondary Plan Desc:MED[place] Secondary Plan Number:[id number] Assessment Information [facility] CM Progress Note CM Note CM Note Notes: 12/18/2016 Case Management Note Met w/pt and patch finisher to discuss d/c plan of care. PT lives with , who provides majority of cares. Pt does not want to d/c to SNF, has prior stays at [facility]. Pt wanted case management to contact regarding home health agency services. [employer] Kiln Operator and Case management attempted to reach Suly. Reached daughter Bill who is passing a message to Suly. Planned for meeting at 0900 with and possibly daughter on 12/19/2016 to fill out MOST form and discuss MDPOA. Contacted spiritual care to facilitate discussion tomorrow morning. patch finisher will be present as well tomorrow. Case Management d/c poc: to be determined. Case management to follow. Date Signed: 12/18/2016 03:51 PM Electronically Signed By:Candy Proctor RN [facility] CM Progress Note CM Note CM Note Notes: 12/19/2016 Case Management Note Met w/pt, Suly, geovanna Hearn. son in law Collins and son Jet, Chaplain Bertrand, Chaplain Ballard and patch finisher Elliot. Discussed need for home health services at d/c. Family and pt in agreement of need for home RN and PT. After discussing multiple agencies, family chose [facility]. Notified [facility] who accepted pt. Please see palliative care note for details of discussion re: advanced directives and MDPOA. Suly designated MDPOA by pt. Educated pt on benefits of dialysis and addressed misconceptions that dialysis is life shortening. Pt agreed that dialysis was acceptable course of treatment. Family in agreement and able to transport pt to dialysis 3 x/week. Elio palliative weather teacher to j carlos RYAN. Case Management notified RN. Case Management d/c poc: Home with home health RN PT from [facility] when medicallly stable with follow up as directed. Date Signed: 12/19/2016 11:42 AM Electronically Signed By:Candy Proctor RN [facility] L[facility] Length of stay for Answers: 4-6 days current admission Acuity / Level of Care Answers: Was the patient admitted to hospital via the emergency department? Yes: Comorbidities - select Answers: Moderate or severe liver all that apply disease or renal disease Emergency dept visits in Answers: 1 last 6 months Score: 12 Date Signed: 12/20/2016 12:05 PM Electronically Signed By:Nataliia Corrigan RN [facility] CM Progress Note CM Note CM Note Notes: Patient will be getting an AV fistula and then be doing dialysis as an out-pt. Patient will be assisted at home by [facility] PT/RN. Family has agreed to providing the appropriate supervision at home. Date Signed: 12/22/2016 11:47 AM Electronically Signed By:Natasha Mills LCSW [facility] Progress Note CM Note CM Note Notes: Pt had surgery today for AV fistula. Dc poc is for pt to dc home where he lives w/ and be followed by [facility]. He will also need to be set up with dialysis center. Spoke w/Dr Vergara (renal) today who said pt will be dialyzed tomorrow and may be ready for dc home after that but we will need to set up dialysis. RN said that Agnes ([phone]), pt's daughter, was the person to call to discuss dc poc. I was unable to reach her but did speak with daughter, Bill ([phone]); she is interested first, in [facility] if they have AM appt available or [facility] (still prefers AM appt). Too late in day to reach centers now, CM will have to follow up in AM. Date Signed: 12/23/2016 05:58 PM Electronically Signed By:Mary Garcia RN [facility] Progress Note CM Note CM Note Notes: 12/25/2016 Case Management Note Odalys the intrepreter assisted case management with translation. Attempted to meet w/pt. Pt was sound asleep. Able to reach Suly on the phone. Pt is set up with [facility] in [address] (p) [phone] (f) Bebe is the RN at [facility] for questions. First appointment is FridayDec 27 at 0930. This is a temporary assigned time and will be adjusted for his [facility] schedule when he arrives at [facility]. Odalys left written instructions in Bermudian in the room for pt and . Case Management available for any further needs. Date Signed: 12/25/2016 04:41 PM Electronically Signed By:Candy Proctor RN [facility] CM Progress Note CM Note CM Note Notes: Pt was not able to attend first dialysis at [facility] today at 09:30 due to still being in the hospital, [facility] alerted and they will keep him on schedule for Friday at 09:30, pt updated. Pt will be dialyzed today in hosp. Pt medically stable for d/c with [facility] RN/PT. Orders to be obtained in [facility]. Date Signed: 12/27/2016 04:39 PM Electronically Signed By:FATMATA Oneill Intervention Information
== END 2016-12-27 19:54 | disposition home or self-care (01) | DRG 674 ==
LOC: F2W 13:03 → F3N 12-26 17:54
PROVIDERS: ADMIT Hospitalist; ATTEND Family Medicine
PROC: 02HV33Z Insertion of Infusion Device into Superior Vena Cava, Percutaneous Approach (ICD-10-PCS; 2016-12-19)
PROC: 03170ZD Bypass Right Brachial Artery to Upper Arm Vein, Open Approach (ICD-10-PCS; principal; 2016-12-23 07:15)
DX: N17.9 Acute kidney failure, unspecified (principal); I12.0 Hypertensive chronic kidney disease with stage 5 chronic kidney disease or end stage renal disease; N18.6 End stage renal disease; E11.22 Type 2 diabetes mellitus with diabetic chronic kidney disease; E87.2 Acidosis; E87.5 Hyperkalemia; N39.0 Urinary tract infection, site not specified; B96.5 Pseudomonas (aeruginosa) (mallei) (pseudomallei) as the cause of diseases classified elsewhere; N13.9 Obstructive and reflux uropathy, unspecified; N35.9 Urethral stricture, unspecified; R33.9 Retention of urine, unspecified; D63.8 Anemia in other chronic diseases classified elsewhere; I69.998 Other sequelae following unspecified cerebrovascular disease; R26.9 Unspecified abnormalities of gait and mobility
CPT/HCPCS: 82306-90; 86704-90; 86705-90; 87517-90; 96374; 97116-GP; 97162-GP; 97165-GO; 97530-GO; 97530-GP; 97535-GO; C1750; G0472; G8978-GP-CL; G8979-GP-CJ; G8987-GO-CJ; G8988-GO-CJ; J0690; J0885; J1642; J1644; J2370; J2405; J2440; J2543; J2704; J2720; J2916; J3010; P9016

== ENCOUNTER 2017-01-07 11:56 | Emergency (ER) | payer OTHER, MEDICAID ==
[2017-01-07 12:12] VITALS: BP 136/87; PULSE 95; RESP 17; TEMP 98.1; O2SAT 97
--- NOTE | 2017-01-07 13:02 | EDPHY ---
General Narrative: CHIEF COMPLAINT: pain near fistula HISTORY OF PRESENT ILLNESS: Patient presents with complaints of left arm redness, pain and swelling of 3 days duration. Gradual onset. Constant duration. This is in the site of a recent fistula placement, December 23, 2016. He was doing well post operatively until 3 days ago. It has become red, warm and painful. No numbness or tingling. No complaints distal to it. No systemic illness. No fever. No trauma or injury. No bleeding from the site. It has been draining clear fluid. No other associated complaints or modifying factors. He has been dialyzing with a temporary catheter Friday. He did dialyze yesterday. Patient is [place]-speaking only. This was all discussed with the [facility] certified [place] foreclosure specialist. REVIEW OF SYSTEMS: Ten systems reviewed and are negative unless otherwise noted in the HPI PCP: [facility] SPECIALISTS: Dr. Benson PAST MEDICAL HISTORY: Chronic kidney disease on dialysis Friday PAST SURGICAL HISTORY: December 23, 2016 left upper extremity AV fistula SOCIAL HISTORY: Nonsmoker FAMILY HISTORY: Noncontributory EXAMINATION General Appearance: Alert, no distress Head: normocephalic, atraumatic Eyes: Pupils equal and round, no conjunctival pallor or injection ENT, Mouth: Mucous membranes moist Neck: Normal inspection, supple, non-tender Respiratory: Right subclavian temporary hemodialysis catheter in place. Lungs are clear to auscultation. No wheezing, rhonchi or crackles Cardiovascular: Regular rate and rhythm. No murmur. There is a palpable thrill in the left AC fistula site. There there is a 2+ radial pulse in the left extremities symmetric to the right. Gastrointestinal: Abdomen is soft and nontender. No distention. Back: non-tender, no bony abnormalities Neurological: A&O, nonfocal, normal gait Skin: Warm and dry, no petechiae purpura. Right subclavian dialysis catheter insertion site is clean, dry and intact. Left AC is erythematous and indurated surrounding the surgical staple line. The opal are intact. There is mild serous drainage. No purulence. No fluctuance. Extremities: Palpable thrill in the left AC at the site of the fistula. Range of motion is intact and without deficit. He is neuro intact distal to the fistula site. Psychiatric: Mood and affect normal DIFFERENTIAL DIAGNOSES: Including but not limited to cellulitis, DVT, infected fistula, abscess MDM: 12:28 p.m. Erythema, induration, edema to a recent AV fistula placement. Vital signs are stable. He is in no acute distress. He has excellent perfusion distal to this. There is a palpable thrill to the fistula. Concern for infection versus venous thrombus. I will discuss with attending physician and general surgeon. 12:50 p.m. Case discussed with on-call general surgeon Dr. Sinha. He informed me that he will be happy to take care of the patient if needed but he is requesting that I have Dr. Oscar evaluate the arm if available. 1:00 p.m. Case discussed with Dr. Oscar. He will come evaluate the patient in the emergency department. 1:30 p.m. Patient has been evaluated by Dr. Oscar here in the emergency department. He feels that this is a mild cellulitis. He would like the patient to have Rocephin 1 g IM. He would like the patient then to continue Keflex 500 mg 3 times daily. He would like to see the patient in his office tomorrow either before after his dialysis. He does not recommend any further workup at this time. I discussed this plan with the patient and with the [place] foreclosure specialist at bedside. They are comfortable with this plan. I have answered all the questions. The bible worker help make an appointment for him tomorrow prior to discharge home. - History Smoking Status: Never smoked - Objective Vital Signs: Initial Vital Signs Temperature (C) 98.1 F 01/07/17 12:04 Heart Rate 95 01/07/17 12:04 Respiratory Rate 17 01/07/17 12:04 Blood Pressure 136/87 H 01/07/17 12:04 O2 Sat (%) 97 01/07/17 12:04 O2 Delivery Mode Room Air Allergies/Adverse Reactions: No Allergies [NKDA] Allergy (Verified 12/17/16 10:03) No Allergies Allergy (Unknown, Uncoded 12/27/16 16:02) Home Medications: Medication Instructions Recorded Tamsulosin HCl [Flomax 0.4 MG (*)] 0.4 mg PO BID 01/27/12 Aspirin EC [Aspirin EC 81 mg (*)] 81 mg PO DAILY 12/17/16 Cholecalciferol Vit D3 [Vitamin D3 2,000 units PO DAILY 12/17/16 2000 units tab (OTC)] Lovastatin 20 mg PO DAILY 12/17/16 [place]-3 Fatty Acids [Fish Oil 1000 1,000 mg PO DAILY@12 12/17/16 mg (*)] Cephalexin [Keflex (*)] 500 mg PO TID #30 cap 01/07/17 Departure - Departure Disposition: Home, Routine, Self-Care Clinical Impression: Cellulitis of upper extremity Qualifiers: Laterality: left Qualified Code(s): L03.114 - Cellulitis of left upper limb Condition: Good Instructions: Cellulitis (ED) Additional Instructions: 1. Keflex 500 mg every 8 hours as prescribed and discussed 2. Keep your appointment with Dr. Oscar tomorrow as discussed 3. ED precautions as discussed Referrals: [facility] [Other] - As per Instructions Jayme Oscar MD [Medical Doctor] - As per Instructions Prescriptions: Cephalexin [Keflex (*)] 500 mg PO TID #30 cap Print Language: [place]
[2017-01-07] MEDS ORDERED: CEFTRIAXONE IM 350 MG/ML SYRINGE IM ONE (13:30)
== END 2017-01-07 14:27 | disposition home or self-care (01) ==
DX: L03.114 Cellulitis of left upper limb (principal); N18.9 Chronic kidney disease, unspecified; Z79.82 Long term (current) use of aspirin; Y82.8 Other medical devices associated with adverse incidents
CPT/HCPCS: 96372; 99284; J0696

== ENCOUNTER 2017-02-12 07:21 | Day surgery (SDC) | payer OTHER, MEDICAID ==
[2017-02-12] MEDS ORDERED: NALOXONE HCL 0.4 MG/ML INJ IVP PRN (07:33)
[2017-02-12] MEDS ORDERED: FLUMAZENIL 0.5 MG/5 ML MDV IVP PRN (07:33)
[2017-02-12] MEDS ORDERED: MIDAZOLAM 2 MG/2 ML VIAL IVP PRN (07:33)
[2017-02-12] MEDS ORDERED: fentaNYL 100 MCG/2 ML INJ IVP PRN (07:33)
[2017-02-12] MEDS ORDERED: NS 1,000 ML IV SCH (07:45)
[2017-02-12] MEDS ORDERED: LIDOCAINE 1% 300 MG/30 ML SDV ONE (08:03)
[2017-02-12] MEDS ORDERED: HEPARIN 50,000 UNIT/10 ML VIAL ONE (08:04)
[2017-02-12 08:22] VITALS: TEMP 209.7
[2017-02-12 08:37] LABS: INR 0.96 (0.83-1.16)
[2017-02-12] MEDS ORDERED: FLUMAZENIL 0.5 MG/5 ML MDV IVP ONE (08:39)
[2017-02-12] MEDS ORDERED: fentaNYL 100 MCG/2 ML INJ ONE ×2 (08:39→08:44)
[2017-02-12] MEDS ORDERED: MIDAZOLAM 2 MG/2 ML VIAL ONE (08:39)
[2017-02-12] MEDS ORDERED: NALOXONE HCL 0.4 MG/ML INJ ONE (08:39)
[2017-02-12] MEDS ORDERED: CEFAZOLIN 1 GM/DEXTROSE/50 ML BAG IV ONE (08:40)
--- NOTE | 2017-02-12 08:43 | PDGENHP ---
History & Physical Chief Complaint: Chronic renal failure History of Present Illness: Dialysis catheter was accidentally pulled out. Stroke 14 years ago. Pertinent Past, Social, Family History: No allergies. On aspirin. Relevant Physical Exam: Mild discoloration and induration at previous right infraclavicular insertion site. No exudate. Cardiorespiratory Assessment: Lungs clear to auscultation. Heart: RRR, no murmur, 64 bpm.
--- NOTE | 2017-02-12 08:45 | PDPROPOC ---
Sedation Plan of Care Sedation Plan of Care: vital signs stable, mental status noted, patient educated of risks, benefits, alternatives, patient can tolerate sedation ASA Classification: ASA 4 Planned drugs: fentanyl, midazolam Mallampati Score: Class 1 Mallampati Reference Image: Patient passed 3-3-2 rule?: Yes
[2017-02-12] MEDS ORDERED: ONDANSETRON 4 MG/2 ML VIAL IVP PRN (09:47)
[2017-02-12] MEDS ORDERED: ACETAMINOPHEN 325 MG TAB PO PRN (09:47)
--- NOTE | 2017-02-12 09:47 | PDRADPN ---
Radiology Procedure Note Date of Procedure: 02/12/17 Radiologist: Jayme Serna Anesthesia: IV Sedation Pre-op Diagnosis: Chronic renal failure Post-op Diagnosis: Same Indication: Accidental removal of previous tunneled dialysis catheter Procedure: Tunneled right jugular dialysis catheter Finding(s): 14.5 F Palindrome dialysis catheter in good position, ready to use. Inf/Abcess present in the surg proc area at time of surgery?: No EBL: Minimal Complications: 0
[2017-02-12 10:16] VITALS: RESP 62
[2017-02-12 10:35] VITALS: BP 128/74; PULSE 66; O2SAT 93
== END 2017-02-12 10:28 | disposition home or self-care (01) ==
LOC: FIMAGING 07:21
PROVIDERS: ATTEND Radiology Diagnostic Radiology
PROC: 05HM33Z Insertion of Infusion Device into Right Internal Jugular Vein, Percutaneous Approach (ICD-10-PCS; principal; 2017-02-12 12:00)
PROC: B5131ZZ Fluoroscopy of Right Jugular Veins using Low Osmolar Contrast (ICD-10-PCS; principal; 2017-02-12 12:00)
DX: Z46.89 Encounter for fitting and adjustment of other specified devices (principal); N18.9 Chronic kidney disease, unspecified; Z86.73 Personal history of transient ischemic attack (TIA), and cerebral infarction without residual deficits
CPT/HCPCS: C1750; J0690; J1644; J2250; J2310; J3010

== ENCOUNTER 2017-02-15 03:13 | Emergency (ER) | payer OTHER, MEDICAID ==
[2017-02-15 03:30] VITALS: O2SAT 95
--- NOTE | 2017-02-15 03:52 | CPEKG ---
Heart Rate: 71 RR Interval: 845 P-R Interval: 172 QRSD Interval: 84 QT Interval: 408 QTC Interval: 444 P [place]: 30 QRS [place]: -12 T Wave [place]: 8 EKG Severity - NORMAL ECG - EKG Impression: SINUS RHYTHM Electronically Signed By: J Carlos David 16-Feb-2017 06:04:43
[2017-02-15 04:32] LABS: PLATELET COUNT 319 10^3/uL (150-400)
[2017-02-15] MEDS ORDERED: HYDROCODONE/APAP 5/325 TAB PO ONE (06:08)
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
[2017-02-15 08:03] VITALS: BP 114/72; PULSE 81; RESP 16; TEMP 98.6
== END 2017-02-15 08:22 | disposition home or self-care (01) ==
DX: R07.89 Other chest pain (principal); I12.0 Hypertensive chronic kidney disease with stage 5 chronic kidney disease or end stage renal disease; N18.6 End stage renal disease; E11.9 Type 2 diabetes mellitus without complications; Z79.82 Long term (current) use of aspirin

== ENCOUNTER 2017-03-07 12:02 | Inpatient (IN) | payer OTHER, MEDICAID ==
[2017-03-07] MEDS ORDERED: OSELTAMIVIR 6 MG/ML UDSYR PO ONE (13:49)
[2017-03-07 13:53] LABS: PLATELET COUNT 163 10^3/uL (150-400)
[2017-03-07 14:02] LABS: INR 0.94 (0.83-1.16); PROTIME(PATIENT) 12.8 SEC (12.0-15.0)
--- NOTE | 2017-03-07 15:05 | ASMTCMCOM ---
CM Note CM Note Notes: Pt in FED and being admitted for flu. Pt was in isolation with had numerous care providers and staff in room. [address] Deputy Clerk Veronica informed that pt. lives at home with his wifeand they have some home care assistance. They could not identify any needs at this time. EDGAR plans TBD, PAVITHRA to follow . Date Signed: 03/07/2017 03:04 PM Electronically Signed By:Velma Vargas LCSW
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
[2017-03-07] MEDS ORDERED: CALCIUM CARBONATE 500 MG CHEWABLE TAB PO PRN (15:48)
[2017-03-07] MEDS ORDERED: ONDANSETRON DISINTEGRATING 4 MG TAB PO PRN (15:50)
[2017-03-07] MEDS ORDERED: ONDANSETRON 4 MG/2 ML VIAL IVP PRN (15:50)
[2017-03-07] MEDS ORDERED: oxyCODONE IR 5 MG TAB PO PRN (15:50)
[2017-03-07] MEDS ORDERED: hydrALAZINE 20 MG/ML VIAL IVP PRN (15:53)
[2017-03-07] MEDS ORDERED: NS 250 ML IV ONE ×2 (16:15→16:30)
[2017-03-07] MEDS: ALBUTEROL 3 ML DEYVIAL IH SCH ×2 (16:27→20:23)
--- NOTE | 2017-03-07 16:27 | PDGENHP ---
History and Physical - Chief Complaint Fever - History of Present Illness History is obtained from the medical chart as the patient is acutely encephalopathic The pt is a 81 yo male with hx of ESRD who had HD today and sent to the E.D. due to cough and fever. In the E.D. he had a + influenza CXR did not show infiltrate A urine sample did not show signs of infection He denies pain He know he is in the hospital but cannot provide a ROS He look very dry He is tachycardic but not hypotensive serum lactate was unremarkable He is febrile he received tamiflu in the E.D He has not received IVF ROS: unable to obtain PMHx: ESRD, DMII, HTN, Stroke, Urinary retention and strictures PSHx: craniectomy, urethrotomy, abd surgery soc hx: unknown fmhx: unknown History Information - Allergies/Home Medication List Allergies/Adverse Reactions: No Allergies [NKDA] Allergy (Verified 03/07/17 12:14) No Allergies Allergy (Unknown, Uncoded 02/15/17 03:31) Home Medications: Tamsulosin HCl [Flomax 0.4 MG (*)] 0.8 mg PO [facility] 01/27/12 [Last Taken 03/06] Lovastatin 20 mg PO [facility] 12/17/16 [Last Taken 03/06/17] Aspirin [Aspirin 81mg (*)] 81 mg PO [facility] 03/07/17 [Last Taken 03/06/17] Calcium Carbonate [Tums 500MG (*)] 500 mg PO DAILY PRN 03/07/17 [Last Taken Unknown] Cholecalciferol Vit D3 [Vitamin D3 2000 units tab (OTC)] 2,000 units PO [facility] 03/07/17 [Last Taken 03/06/17] I have personally reviewed and updated: medical history, social history - Social History Smoking Status: Never smoked Review of Systems Review of Systems: Physical Exam Physical Exam: Temp Pulse Resp BP Pulse Ox 39.5 C H 123 H 24 H 168/95 H 97 03/07/17 15:26 03/07/17 15:26 03/07/17 15:26 03/07/17 15:26 03/07/17 15:54 O2 (L/minute) 2 Constitutional: chronically ill appearing Eyes: PERRL, EOMI Ears, Nose, Mouth, Throat: dry mucous membranes Cardiovascular: tachycardia, No edema Respiratory: respiratory distress (increased work of breathing), other (coarse) , No no respiratory distress Gastrointestinal: normoactive bowel sounds, soft, non-tender abdomen Skin: warm Neurologic: No AAOx3 Psychiatric: encephalopathic, No interacting appropriately Lymph, Heme, Immunologic: No no cervical LAD Lab Data & Imaging Review 03/07/17 13:40 03/07/17 12:53 WBC 6.58 10^3/uL (3.80-9.50) 03/07/17 13:40 RBC 3.88 10^6/uL (4.40-6.38) L 03/07/17 13:40 Hgb 12.7 g/dL (13.7-17.5) L 03/07/17 13:40 Hct 36.6 % (40.0-51.0) L 03/07/17 13:40 MCV 94.3 fL (81.5-99.8) 03/07/17 13:40 MCH 32.7 pg (27.9-34.1) 03/07/17 13:40 MCHC 34.7 g/dL (32.4-36.7) 03/07/17 13:40 RDW 16.8 % (11.5-15.2) H 03/07/17 13:40 Plt Count 163 10^3/uL (150-400) 03/07/17 13:40 MPV 8.9 fL (8.7-11.7) 03/07/17 13:40 Neut % (Auto) 80.9 % (39.3-74.2) H 03/07/17 13:40 Lymph % (Auto) 10.5 % (15.0-45.0) L 03/07/17 13:40 [place] % (Auto) 6.8 % (4.5-13.0) 03/07/17 13:40 Eos % (Auto) 0.6 % (0.6-7.6) 03/07/17 13:40 Baso % (Auto) 0.6 % (0.3-1.7) 03/07/17 13:40 Nucleat RBC Rel Count 0.0 % (0.0-0.2) 03/07/17 13:40 Absolute Neuts (auto) 5.32 10^3/uL (1.70-6.50) 03/07/17 13:40 Absolute Lymphs (auto) 0.69 10^3/uL (1.00-3.00) L 03/07/17 13:40 Absolute Monos (auto) 0.45 10^3/uL (0.30-0.80) 03/07/17 13:40 Absolute Eos (auto) 0.04 10^3/uL (0.03-0.40) 03/07/17 13:40 Absolute Basos (auto) 0.04 10^3/uL (0.02-0.10) 03/07/17 13:40 Absolute Nucleated RBC 0.00 10^3/uL (0-0.01) 03/07/17 13:40 Immature Gran % 0.6 % (0.0-1.1) 03/07/17 13:40 Immature Gran # 0.04 10^3/uL (0.00-0.10) 03/07/17 13:40 PT 12.8 SEC (12.0-15.0) 03/07/17 13:40 INR 0.94 (0.83-1.16) 03/07/17 13:40 APTT 30.0 SEC (23.0-38.0) 03/07/17 13:40 VBG Lactic Acid 1.4 mmol/L (0.7-2.1) 03/07/17 13:40 Sodium 137 mEq/L (135-145) 03/07/17 12:53 Potassium 4.3 mEq/L (3.5-5.2) 03/07/17 12:53 Chloride 95 mEq/L (97-110) L 03/07/17 12:53 Carbon Dioxide 28 mEq/l (22-31) 03/07/17 12:53 Anion Gap 14 mEq/L (8-16) 03/07/17 12:53 BUN 19 mg/dL (7-23) 03/07/17 12:53 Creatinine 3.6 mg/dL (0.7-1.3) H 03/07/17 12:53 Estimated GFR 16 03/07/17 12:53 Glucose 109 mg/dL (70-100) H 03/07/17 12:53 Calcium 9.7 mg/dL (8.5-10.4) 03/07/17 12:53 Total Bilirubin 0.7 mg/dL (0.1-1.4) 03/07/17 12:53 Urine Color FELIX 03/07/17 13:45 Urine Appearance HAZY 03/07/17 13:45 Urine pH 6.0 (5.0-7.5) 03/07/17 13:45 Ur Specific [place] 1.016 (1.002-1.030) 03/07/17 13:45 Urine Protein NEGATIVE (NEGATIVE) 03/07/17 13:45 Urine Ketones NEGATIVE (NEGATIVE) 03/07/17 13:45 Urine Blood NEGATIVE (NEGATIVE) 03/07/17 13:45 Urine Nitrate NEGATIVE (NEGATIVE) 03/07/17 13:45 Urine Bilirubin NEGATIVE (NEGATIVE) 03/07/17 13:45 Urine Urobilinogen NEGATIVE EU (0.2-1.0) 03/07/17 13:45 Ur Leukocyte Esterase NEGATIVE (NEGATIVE) 03/07/17 13:45 Urine Glucose NEGATIVE (NEGATIVE) 03/07/17 13:45 Nasal Influenza A PCR FLU A DETECTED (NEGATIVE) H 03/07/17 12:55 Nasal Influenza B PCR NEGATIVE FOR FLU B (NEGATIVE) 03/07/17 12:55 Assessment & Plan Assessment: 81 yo male with ESRD admitted with fever, influenza A, and acute encephalopathy. He appears critically ill. #Query Sepsis -infectious source unclear, possibly lung #Influenza A #Volume depletion #ESRD #Tachycardia #HTN #Acute Encephalopathy Plan: -Will start Zosyn empirically now -Check pc -consider Vancomycin pending clinical course -I dont see e/o of cellulitis -Blood cultures ordered and obtained in the E.D. -Will provide IVF now, will go gently given ESRD -Tamiflu, dose per pharmacy presumed full code Heparin for DVT proph Total critical care time is 80 minutes
[2017-03-07] MEDS ORDERED: NS 250 ML IV SCH (16:30)
[2017-03-07] MEDS ORDERED: PIPERACILLIN/TAZO 3.375 GM/DEX 50 ML IV SCH (16:30)
--- NOTE | 2017-03-07 16:41 | PDMN ---
Medical Necessity Medical necessity: est los>2mn for influenza, r/o sepsis, possibly lung related , volume depletion, tachycardia and acute encephalopathy, appearing critically ill; admit for IV abx, follow cx's, IVF; comorbid ESRD, DM, HTN, hx stroke; per order and H&P 03/07/17
[2017-03-07] MEDS: ACETAMINOPHEN 325 MG TAB PO PRN ×2 (16:43→22:08)
[2017-03-07] MEDS: PIPERACILLIN/TAZO 2.25 GM/DEX 50 ML IV SCH (17:08)
[2017-03-07] MEDS: HEPARIN 5,000 UNIT/0.5 ML SYR SC SCH (22:05)
[2017-03-08] MEDS: ALBUTEROL 3 ML DEYVIAL IH SCH ×6 (00:55→18:21)
[2017-03-08] MEDS: PIPERACILLIN/TAZO 2.25 GM/DEX 50 ML IV SCH ×2 (04:21→16:10)
[2017-03-08] MEDS: HEPARIN 5,000 UNIT/0.5 ML SYR SC SCH ×3 (05:04→22:23)
[2017-03-08] MEDS: ACETAMINOPHEN 325 MG TAB PO PRN (05:06)
[2017-03-08 05:47] LABS: PLATELET COUNT 157 10^3/uL (150-400)
[2017-03-08] MEDS ORDERED: NS 1,000 ML IV SCH (09:00)
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
[2017-03-08] MEDS: ASPIRIN 81 MG CHEWABLE TAB PO SCH (10:07)
[2017-03-08] MEDS: CHOLECALCIFEROL VIT D3 2,000 UNITS TAB/CAP PO SCH (10:07)
[2017-03-08] MEDS: TAMSULOSIN HCL 0.4 MG CAP PO SCH (10:07)
[2017-03-08] MEDS: PRAVASTATIN SODIUM 20 MG TAB PO SCH (10:07)
--- NOTE | 2017-03-08 14:26 | HOSPPROG ---
Hospitalist Progress Note Assessment/Plan: 81 yo male with ESRD admitted with fever, influenza A, and acute encephalopathy. Appeared critically ill on admission. Was very dry. #Query Sepsis, resolved/resolving -infectious source unclear, possibly lung -slight elevation of pc #Influenza A #Volume depletion, s/p IVF #ESRD #Tachycardia #HTN #Acute Encephalopathy Plan: -Cont Zosyn -f/u cultures -nephrology following -dialysis per nephrology -Tamiflu, dose per pharmacy Full Code Heparin for DVT proph Subjective: doing better today. more awake. no cp or sob. no n/v. Objective: Vital Signs Temp Pulse Resp BP Pulse Ox 36.8 C 78 18 110/62 98 03/08/17 10:18 03/08/17 10:18 03/08/17 10:18 03/08/17 10:18 03/08/17 10:18 Laboratory Results 03/08/17 04:18 03/08/17 04:18 03/07/17 03/08/17 03/09/17 05:59 05:59 05:59 Intake Total 1290 Output Total 435 Balance 855 PT 12.8 SEC (12.0-15.0) 03/07/17 13:40 INR 0.94 (0.83-1.16) 03/07/17 13:40 - Physical Exam Constitutional: no apparent distress Eyes: PERRL, EOMI Ears, Nose, Mouth, Throat: moist mucous membranes Cardiovascular: regular rate and rhythym, No edema Respiratory: reduced air movement, other (coarse) Gastrointestinal: normoactive bowel sounds, soft, non-tender abdomen Skin: warm Musculoskeletal: generalized weakness Neurologic: No AAOx3 Psychiatric: interacting appropriately, not anxious, encephalopathic Lymph, Heme, Immunologic: No petechiae ICD10 Worksheet Patient Problems: Problems Problem Status Onset Influenza A Acute Closed fracture of pelvis Active Fever Active bladder rupture Active Bacteremia Acute Bacteremia due to Klebsiella pneumoniae Acute Lumbar canal stenosis Acute Renal failure (ARF), acute on chronic Acute Urinary tract infection Acute
[2017-03-08] MEDS ORDERED: NON-FORMULARY NEW DRUG (Lovastatin [Lovastatin] 20 MG) PO SCH (15:48)
[2017-03-09] MEDS: ALBUTEROL 3 ML DEYVIAL IH SCH ×6 (04:07→20:03)
[2017-03-09] MEDS: PIPERACILLIN/TAZO 2.25 GM/DEX 50 ML IV SCH ×2 (05:11→16:51)
[2017-03-09] MEDS: HEPARIN 5,000 UNIT/0.5 ML SYR SC SCH ×3 (05:11→20:44)
[2017-03-09] MEDS: TAMSULOSIN HCL 0.4 MG CAP PO SCH (08:56)
[2017-03-09] MEDS: ASPIRIN 81 MG CHEWABLE TAB PO SCH (08:57)
[2017-03-09] MEDS: CHOLECALCIFEROL VIT D3 2,000 UNITS TAB/CAP PO SCH (08:57)
[2017-03-09] MEDS: PRAVASTATIN SODIUM 20 MG TAB PO SCH (08:57)
--- NOTE | 2017-03-09 13:26 | HOSPPROG ---
Hospitalist Progress Note Assessment/Plan: 81 yo male with ESRD admitted with fever, influenza A, and acute encephalopathy. Appeared critically ill on admission. Was very dry. Much improved still weak, not at baseline #Query Sepsis, resolved/resolving -infectious source unclear, possibly lung -slight elevation of pc #Influenza A #Volume depletion, s/p IVF #ESRD #Tachycardia #HTN #Acute Encephalopathy Plan: -Cont Zosyn -f/u cultures, these have been negative thus far. -nephrology following -dialysis per nephrology -Tamiflu, dose per pharmacy -PT/OT. will likely recommend [facility] Full Code Heparin for DVT proph D/W nursing and cyanide case hardener Subjective: still with cough but significantly improved. Needing intermittent O2. Afebrile Objective: Vital Signs Temp Pulse Resp BP Pulse Ox 36.9 C 65 16 107/61 93 03/09/17 08:00 03/09/17 08:00 03/09/17 10:46 03/09/17 08:00 03/09/17 10:46 Laboratory Results 03/09/17 04:06 03/09/17 04:06 03/08/17 03/09/17 03/10/17 05:59 05:59 05:59 Intake Total 1290 210 Output Total 435 600 Balance 855 -390 PT 12.8 SEC (12.0-15.0) 03/07/17 13:40 INR 0.94 (0.83-1.16) 03/07/17 13:40 - Physical Exam Constitutional: no apparent distress Eyes: PERRL Ears, Nose, Mouth, Throat: moist mucous membranes Cardiovascular: regular rate and rhythym, No edema Respiratory: rhonchi Gastrointestinal: normoactive bowel sounds, soft, non-tender abdomen Skin: warm Musculoskeletal: generalized weakness Neurologic: AAOx3 Psychiatric: interacting appropriately, not anxious, not encephalopathic Lymph, Heme, Immunologic: No petechiae ICD10 Worksheet Patient Problems: Problems Problem Status Onset Influenza A Acute Closed fracture of pelvis Active Fever Active bladder rupture Active Bacteremia Acute Bacteremia due to Klebsiella pneumoniae Acute Lumbar canal stenosis Acute Renal failure (ARF), acute on chronic Acute Urinary tract infection Acute
--- NOTE | 2017-03-09 15:20 | SOAPPROG ---
SOAP Progress Note Assessment/Plan: Assessment/Plan: ESRD: on HD MWF. - Will plan on HD tomorrow. Anemia: will give epo with HD tomorrow. RUKHSANA: phos elevated at 7.8, will start calcium acetate with meals. Subjective: No acute events overnight. Pt went walking with PT today and did well. He notes no chest pain or dyspnea, feels comfortable overall. Objective: Vital Signs Temp Pulse Resp BP Pulse Ox 36.9 C 68 16 107/61 92 03/09/17 08:00 03/09/17 13:38 03/09/17 13:38 03/09/17 08:00 03/09/17 13:38 Laboratory Results 03/09/17 04:06 03/09/17 04:06 03/08/17 03/09/17 03/10/17 05:59 05:59 05:59 Intake Total 1290 210 Output Total 435 600 Balance 855 -390 PT 12.8 SEC (12.0-15.0) 03/07/17 13:40 INR 0.94 (0.83-1.16) 03/07/17 13:40 General: alert and oriented, no acute distress Eyes: EOMI, PERRL OP: Clear CV: RRR Resp: CTA bilat, nonlabored respirations on RA Abd: soft, NT/ND Ext: no edema BLE Neuro: CN II-XII grossly intact, no asterixis Access: RIJ tunneled catheter ICD10 Worksheet Patient Problems: Problems Problem Status Onset Influenza A Acute Closed fracture of pelvis Active Fever Active bladder rupture Active Bacteremia Acute Bacteremia due to Klebsiella pneumoniae Acute Lumbar canal stenosis Acute Renal failure (ARF), acute on chronic Acute Urinary tract infection Acute
--- NOTE | 2017-03-09 15:55 | ASMTCMCOM ---
CM Note CM Note Notes: 03/09/2017 Case Management Note Reviewed chart, discussed in rounds and discussed with PT. There are not case management d/c needs identified. PT recommending home. When d/c pt to resume dialysis outpatient MWF on the same schedule as prior to admission. Case Management d/c poc: Home with family support and follow up as directed. Case Management available if needs change. Date Signed: 03/09/2017 03:54 PM Electronically Signed By:Candy Proctor RN
[2017-03-09] MEDS: CALCIUM ACETATE 667 MG CAP PO SCH (16:51)
[2017-03-10] MEDS: ALBUTEROL 3 ML DEYVIAL IH SCH ×7 (03:06→22:38)
[2017-03-10] MEDS: PIPERACILLIN/TAZO 2.25 GM/DEX 50 ML IV SCH (05:53)
[2017-03-10] MEDS: HEPARIN 5,000 UNIT/0.5 ML SYR SC SCH ×3 (05:55→22:51)
[2017-03-10] MEDS: CALCIUM ACETATE 667 MG CAP PO SCH ×3 (09:55→17:39)
--- NOTE | 2017-03-10 09:58 | SOAPPROG ---
SOAP Progress Note Assessment/Plan: Assessment/Plan: ESRD: on HD MWF. - Will do HD today per routine. Anemia: will give epo with HD today. RUKHSANA: phos elevated at 8.1, will increase calcium acetate with meals. Subjective: No acute events overnight. Pt resting comfortably this am, no complaints. Objective: Vital Signs Temp Pulse Resp BP Pulse Ox 37.0 C 81 15 135/74 H 92 03/10/17 07:15 03/10/17 07:15 03/10/17 07:15 03/10/17 07:15 03/10/17 07:15 Laboratory Results 03/10/17 04:25 03/10/17 04:25 03/09/17 03/10/17 03/11/17 05:59 05:59 05:59 Intake Total 210 250 Output Total 600 1300 Balance -390 -1050 PT 12.8 SEC (12.0-15.0) 03/07/17 13:40 INR 0.94 (0.83-1.16) 03/07/17 13:40 General: no acute distress Eyes: EOMI, PERRL OP: Clear CV: RRR Resp: Nonlabored respirations on NC Abd: Soft, NT Ext: no edema BLE neuro: CN II-XII grossly intact, no asterixis Access; RIJ tunneled catheter ICD10 Worksheet Patient Problems: Problems Problem Status Onset Influenza A Acute Closed fracture of pelvis Active Fever Active bladder rupture Active Bacteremia Acute Bacteremia due to Klebsiella pneumoniae Acute Lumbar canal stenosis Acute Renal failure (ARF), acute on chronic Acute Urinary tract infection Acute
--- NOTE | 2017-03-10 15:15 | HOSPPROG ---
Hospitalist Progress Note Assessment/Plan: Assessment: 81 yo p/w sepsis 2/2 influenza A viral infection in setting of ESRD , and acute encephalopathy Plan: # Sepsis. POA, evidenced by autonomic dysregulation in setting of infxn w/ end- organ failure (encephalopathy), qSOFA 2 (tachypnea, enceph) + clinical signs including tachycardia, fever w/ viral infxn, meeting all Sepsis-2 and Sepsis-3 criteria -resolved -stopped Zosyn s/p 3 days # Influenza A viral syndrome. POA, Flu A positive -cont renally dosed tamiflu # Acute encephalopathy. Evidenced by global brain dysfunction characterized as confusion, disorientation, all of which acute changes from baseline, 2/2 toxic effects of infxn -unclear if he is mentating at baseline today, has not been out of chair and does not appear functionally safe for DC home -d/w case mgmt and RN, plan asking family to join patient in AM w/ therapies to gauge how close he is to baseline and whether he will be safe at home -counseled patient that we want to ensure safe DC # ESRD. MWF HD w/ R cath -HD today, appreciate ongoing Renal care # HTN. Chronic, cont home Rx # Anemia of ESRD. Cont Epo, Hgb monitoring # Atelectasis. Acute, present on CXR, IS Code. Full PPx. Hep SC Diet. Renal Dispo. ADD 03/11, pending stability of encephalopathy and improvements in fxnal status. Subjective: patient reports he's only been in chair today, no pain Objective: Vital Signs Temp Pulse Resp BP Pulse Ox 36.9 C 69 16 132/68 H 96 03/10/17 12:36 03/10/17 12:36 03/10/17 12:36 03/10/17 12:36 03/10/17 12:36 Laboratory Results 03/10/17 04:25 03/10/17 04:25 03/09/17 03/10/17 03/11/17 05:59 05:59 05:59 Intake Total 210 250 Output Total 600 1300 Balance -390 -1050 PT 12.8 SEC (12.0-15.0) 03/07/17 13:40 INR 0.94 (0.83-1.16) 03/07/17 13:40 - Time Spent With Patient Time Spent with Patient: greater than 35 minutes Time Spent with Patient: Greater than 35 minutes spent on this patients care, greater than 50% of time spent counseling, educating, and coordinating care regarding the above mentioned plan. - Physical Exam Constitutional: no apparent distress, not in pain, chronically ill appearing, No uncomfortable Cardiovascular: systolic murmur (II/ sternum), edema (trace bilat LE), No irregularly irregular, No tachycardia Respiratory: inspiratory crackles, No expiratory wheeze, No bronchial breath sounds, No respiratory distress Gastrointestinal: normoactive bowel sounds, soft, non-tender abdomen, no palpable masses, No distension Skin: other (no erythema around chest cath) Neurologic: sensation intact bilaterally, other (AAOx2 (person and place)), No weakness Psychiatric: interacting appropriately, not anxious, flat affect, poor insight, No agitated ICD10 Worksheet Patient Problems: Problems Problem Status Onset Influenza A Acute Closed fracture of pelvis Active Fever Active bladder rupture Active Bacteremia Acute Bacteremia due to Klebsiella pneumoniae Acute Lumbar canal stenosis Acute Renal failure (ARF), acute on chronic Acute Urinary tract infection Acute
--- NOTE | 2017-03-10 16:00 | ASMTCMCOM ---
CM Note CM Note Notes: Chart reviewed for dc plan of care. Per therapy ok to dc home. encephelopathy may affect his ability to be safe. MD would like family present for therapy tomorrow to determine if he is at baseline. Patient RN contacting consulting software engineer to help arrange CM to follow. Date Signed: 03/10/2017 03:59 PM Electronically Signed By:Nataliia Corrigan RN
[2017-03-10] MEDS ORDERED: OSELTAMIVIR 6 MG/ML UDSYR PO ONE (17:00)
[2017-03-10] MEDS ORDERED: BENZONATATE 100 MG CAP PO PRN (22:51)
[2017-03-10] MEDS ORDERED: HEPARIN 50,000 UNIT/10 ML VIAL ONE (22:54)
[2017-03-11] MEDS: ALBUTEROL 3 ML DEYVIAL IH SCH ×3 (02:45→09:19)
[2017-03-11] MEDS: HEPARIN 5,000 UNIT/0.5 ML SYR SC SCH (06:29)
[2017-03-11 09:12] VITALS: BP 106/57; TEMP 99
[2017-03-11 09:25] VITALS: PULSE 65; RESP 14; O2SAT 95
[2017-03-11] MEDS: TAMSULOSIN HCL 0.4 MG CAP PO SCH (09:29)
[2017-03-11] MEDS: CHOLECALCIFEROL VIT D3 2,000 UNITS TAB/CAP PO SCH (09:29)
[2017-03-11] MEDS: CALCIUM ACETATE 667 MG CAP PO SCH ×2 (09:29→12:21)
[2017-03-11] MEDS: ASPIRIN 81 MG CHEWABLE TAB PO SCH (09:29)
[2017-03-11] MEDS: PRAVASTATIN SODIUM 20 MG TAB PO SCH (09:29)
--- NOTE | 2017-03-11 12:26 | SOAPPROG ---
SOAP Progress Note Assessment/Plan: Assessment: ESRD Influenza A hyperphosphatemia, better Plan: dismissal today follow up at outpatient HD usual day and time all questions answered, at bedside 03/11/17 12:24 Subjective: feeling better sob improved no cp nausea vomiting or anorexia HD went fine yesterday Objective: Vital Signs Temp Pulse Resp BP Pulse Ox 37.2 C 65 14 106/57 L 95 03/11/17 09:11 03/11/17 09:22 03/11/17 09:22 03/11/17 09:11 03/11/17 09:22 Laboratory Results 03/11/17 04:02 03/11/17 04:02 03/10/17 03/11/17 03/12/17 05:59 05:59 05:59 Intake Total 250 240 300 Output Total 1300 1825 Balance -1050 -1585 300 PT 12.8 SEC (12.0-15.0) 03/07/17 13:40 INR 0.94 (0.83-1.16) 03/07/17 13:40 Physical Exam - Physical Exam General Appearance: alert, thin Respiratory: rhonchi, wheezing, No rales Cardiac/Chest: regular rate, rhythm, No edema, No friction rub Abdomen: normal bowel sounds, non-tender, soft Neuro/Psych: alert, normal mood/affect, oriented x 3 ICD10 Worksheet Patient Problems: Problems Problem Status Onset Influenza A Acute Closed fracture of pelvis Active Fever Active bladder rupture Active Bacteremia Acute Bacteremia due to Klebsiella pneumoniae Acute Lumbar canal stenosis Acute Renal failure (ARF), acute on chronic Acute Urinary tract infection Acute
--- NOTE | 2017-03-11 17:26 | ASDISCHSUM ---
Discharge Information Plan Status:Home with No Needs Medically Cleared to Leave:03/10/2017 Discharge Date:03/11/2017 12:34 PM CM D/C Disposition:Home, Routine, Self-Care ADT D/C Disposition:Home, Routine, Self-Care Projected Discharge Date:03/11/2017 12:34 PM Transportation at D/C:Family Discharge Delay Reason: Follow-Up Date:03/11/2017 12:34 PM Discharge Slot: Final Diagnosis: Placement Information Patient Contact Information Contact Name:YASSINE Relationship: Address:[address] Work Phone: City:[place] Alternate Phone: [facility]/Zip Code:[place] [address] Email: Financial Information Financial Class: Primary Plan Desc:MEDICARE INPATIENT Primary Plan Number:[id number] Secondary Plan Desc:MED[place] Secondary Plan Number:[id number] Assessment Information [facility] CM Progress Note CM Note CM Note Notes: Pt in FED and being admitted for flu. Pt was in isolation with had numerous care providers and staff in room. Dominatrix Veronica informed that pt. lives at home with his wifeand they have some home care assistance. They could not identify any needs at this time. DC plans TBD, CM to follow . Date Signed: 03/07/2017 03:04 PM Electronically Signed By:Velma Vargas LCSW [facility] Length of stay for Answers: Less than 1 day current admission Acuity / Level of Care Answers: Was the patient admitted to hospital via the emergency department? Yes: Emergency dept visits in Answers: 3 last 6 months Score: 6 Date Signed: 03/07/2017 03:14 PM Electronically Signed By:Velma Vargas LCSW [facility] CM Progress Note CM Note CM Note Notes: 03/09/2017 Case Management Note Reviewed chart, discussed in rounds and discussed with PT. There are not case management d/c needs identified. PT recommending home. When d/c pt to resume dialysis outpatient MWF on the same schedule as prior to admission. Case Management d/c poc: Home with family support and follow up as directed. Case Management available if needs change. Date Signed: 03/09/2017 03:54 PM Electronically Signed By:Candy Proctor RN [facility] CM Progress Note CM Note CM Note Notes: Chart reviewed for dc plan of care. Per therapy ok to dc home. encephelopathy may affect his ability to be safe. MD would like family present for therapy tomorrow to determine if he is at baseline. Patient RN contacting wheel blocker to help arrange CM to follow. Date Signed: 03/10/2017 03:59 PM Electronically Signed By:Nataliia Corrigan RN Intervention Information
--- NOTE | 2017-03-11 19:37 | PDDCSUM ---
Discharge Summary Discharge Summary: DISCHARGE SUMMARY FOLLOW-UP ITEMS: The patient reassessment hemodialysis DATE OF ADMISSION: 03/07/2017 DATE OF DISCHARGE: 03/11/2007 DISCHARGE DIAGNOSES: 1. Sepsis present on admission 2. Influenza a viral syndrome present on admission 3. Acute encephalopathy 4. End-stage renal disease 5. Chronic hypertension 6. Anemia of end-stage renal disease 7. Acute atelectasis CONSULTATIONS: Nephrology PROCEDURES / IMAGING: Dialysis CHIEF COMPLAINT: Acute fatigue, confusion SUBJECTIVE: Patient is doing well at time of discharge, he is ambulating with a walker and coaching PHYSICAL EXAM ON DISCHARGE: Systolic blood pressure is 110-160, heart rate 70, afebrile overnight, satting well on room air, alert awake oriented x3, ambulating safely with walker, transitioning with coaching, lungs are clear to auscultation bilaterally, heart rhythm is regular with 2 6 systolic murmur at the right sternal border, no lower extremity edema LABS ON DISCHARGE: BUN 27, creatinine 3.6, potassium 3.8, hemoglobin 9.4 HOSPITAL COURSE BY PROBLEM: 1. Sepsis. Present on admission, evidenced by autonomic dysregulation the setting of infection with end-organ failure, encephalopathy, with a Q sofa score of 2, including tachypnea and encephalopathy, with clinical signs including tachycardia, fever, meeting all sepsis -2 and sepsis -3 criteria. This situation was stabilized with IV fluids, initial empiric IV antibiotics and antivirals. 2. Influenza a viral syndrome. Present on admission, fluid positive on presentation, received renally dose Tamiflu for 5 days. Symptoms were abating at time of discharge. Patient currently has very minimal weakness, and his feels like he is safe at home. She has been taking care of him for quite some time and she feels very safe with him discharging home without home care. 3. Acute encephalopathy. Evidenced by global brain dysfunction characterized as confusion, disorientation, all of which were acute changes from his baseline , secondary to the toxic effects of infection above. The patient required 5 days of care including coaching with transfers and ambulation, as well as activities of daily living. The time of discharge, the patient's reports that he is very near his baseline and she is comfortable taking him home. 4. End-stage renal disease. On Friday hemodialysis, patient has a right-sided catheterization which demonstrates no evidence of infection, will follow up at his dialysis center. 5. Acute atelectasis. Present on chest x-ray, he was given incentive spirometer. 6. Anemia of end-stage renal disease. Patient received Depo during his hospitalization, his hemoglobin was stable at time discharge. DISCHARGE MEDICATIONS: Please see official discharge medication reconciliation sheet in chart , continue home medications with Severo Lin as needed DISCHARGE INSTRUCTIONS: Please follow up at hemodialysis center tomorrow. TIME SPENT: Greater than 30 minutes were spent on direct patient care, as well as discharge planning and preparation.
== END 2017-03-11 12:34 | disposition home or self-care (01) | DRG 871 ==
LOC: F2W 15:00
PROVIDERS: ADMIT Family Medicine; ATTEND Family Medicine
PROC: 5A1D70Z Performance of Urinary Filtration, Intermittent, Less than 6 Hours Per Day (ICD-10-PCS; principal; 2017-03-10)
DX: A41.9 Sepsis, unspecified organism (principal); J10.1 Influenza due to other identified influenza virus with other respiratory manifestations; G93.40 Encephalopathy, unspecified; E11.22 Type 2 diabetes mellitus with diabetic chronic kidney disease; I12.0 Hypertensive chronic kidney disease with stage 5 chronic kidney disease or end stage renal disease; N18.6 End stage renal disease; D63.1 Anemia in chronic kidney disease; J98.11 Atelectasis; E83.39 Other disorders of phosphorus metabolism; Z99.2 Dependence on renal dialysis; Z86.73 Personal history of transient ischemic attack (TIA), and cerebral infarction without residual deficits
CPT/HCPCS: 97116-GP; 97161-GP; 97165-GO; 97535-GO; G8978-GP-CJ; G8979-GP-CI; G8987-GO-CL; G8988-GO-CJ; G8989-GO-CJ; J1644; J2543; J7613

== ENCOUNTER 2017-03-14 12:15 | Inpatient (IN) | payer OTHER, MEDICAID ==
--- NOTE | 2017-03-14 12:36 | EDPHY ---
H & P Time Seen by Provider: 03/14/17 12:24 HPI/ROS: CHIEF COMPLAINT: Weakness and fever HISTORY OF PRESENT ILLNESS: 81-year-old man who is dialysis dependent was hospitalized last week for influenza. Today he was at dialysis and then became febrile and very weak and could not walk or stand up. Weakness is generalized and not associated with confusion or focal deficit or visual symptoms. It is much worse when he tries to stand up, or walk. Not associated with syncope or falling. He is brought in by EMS unable to stand. REVIEW OF SYSTEMS: Eye: no change in vision ENT: no sore throat Cardiac: no chest pain or syncope Pulmonary: no cough or SOB Abdomen: no vomiting, diarrhea, abdominal pain Musculoskeletal: no back pain Skin: Skin around the right dialysis port looks like it usually does. Neuro: HPI no headache Constitutional: HPI : no urinary symptoms, has catheter, no change in appearance or smell. A comprehensive 10 point review of systems is otherwise negative aside from elements mentioned in the history of present illness. PAST MEDICAL HISTORY: Discharge summary dated 03/11/17 personally reviewed includes end-stage renal disease with dialysis, hypertension, influenza a. Social history: Vietnamese-speaking here with his home care attendant present in the room. General Appearance: Alert and conversant, cooperative. Eyes: No scleral icterus. ENT, Mouth: Normal mucous membranes. No trismus or pharyngeal erythema, no stridor or drooling. Respiratory: Decreased breath sounds bilaterally, no wheezing or rhonchi. Cardiovascular: Regular rate and rhythm. Tachycardic. Gastrointestinal: Abdomen is soft and non tender. Neurological: Alert, face symmetric, normal motor and sensory in extremities. Skin: Warm and dry, no rashes. Patient has a little bit of bruising or discoloration at the exit site of his right subclavian dialysis catheter which the says is typical appearance, not tender or swollen. There is a left arm fistula which I do not feel a thrill. Musculoskeletal: No peripheral edema. Normal range of motion of the neck. Psychiatric: Not agitated. Emergency Department course/MDM: Patient presents with fever tachycardia and SIRS criteria with generalized weakness. Plan for sepsis screening blood cultures chest x-ray urinalysis IV fluids and hospital admission 1319: WBC normal, lactate 2.0, chest x-ray negative for pneumonia. 1333: Urinalysis shows white blood cells and will be treated empirically for possible pyelonephritis pending culture. 1 L IV normal saline for tachycardia and fever. Repeat lactate ordered. Discussed with Jose at 1336. 1358: Repeat lactate 1.6. Does not have severe sepsis or septic shock. Smoking Status: Never smoked Constitutional: Initial Vital Signs Temperature (C) 38.2 C 03/14/17 12:54 Heart Rate 18 L 03/14/17 12:54 Respiratory Rate 130 H 03/14/17 12:54 Blood Pressure 118/91 H 03/14/17 12:54 O2 Sat (%) 94 03/14/17 12:54 O2 Delivery Mode Room Air Allergies/Adverse Reactions: No Allergies [NKDA] Allergy (Verified 03/07/17 12:14) No Allergies Allergy (Unknown, Uncoded 02/15/17 03:31) Home Medications: Medication Instructions Recorded Tamsulosin HCl [Flomax 0.4 MG (*)] 0.8 mg [facility] 01/27/12 Lovastatin 20 mg PO [facility] 12/17/16 Aspirin [Aspirin 81mg (*)] 81 [facility] 03/[facility]/17 Calcium Carbonate [Tums 500MG (*)] 500 mg PO DAILY PRN 03/07/17 Cholecalciferol Vit D3 [Vitamin D3 2,000 units PO [facility] 03/07/17 2000 units tab (OTC)] Hydrocodone/APAP 5/325 [[place] 1 - 2 tab PO Q4-6PRN PRN 03/14/17 5/325 (*)] Multivitamins [Multivitamin (*)] 1 each PO [facility] 03/14/17 Medical Decision Making - Diagnostics Imaging Results: Imaging Impressions Chest X-Ray 03/14/17 12:34 Impression: No pneumonia. Imaging: I viewed and interpreted images myself Differential Diagnosis: Differential considered including but not limited to pneumonia, UTI, sepsis, meningitis, line infection. Consult/Admit Bed Type: [place] [id number] - Data Points Laboratory Results: Laboratory Results 03/14/17 12:30 03/14/17 12:30 03/14/17 03/14/17 03/14/17 13:05 12:30 12:30 WBC RBC Hgb Hct MCV MCH MCHC RDW Plt Count MPV Neut % (Auto) Lymph % (Auto) Dukes % (Auto) Eos % (Auto) Baso % (Auto) Nucleat RBC Rel Count Absolute Neuts (auto) Absolute Lymphs (auto) Absolute Monos (auto) Absolute Eos (auto) Absolute Basos (auto) Absolute Nucleated RBC Immature Gran % Seg Neutrophils % Band Neutrophils % Lymphocytes % Monocytes % Eosinophils % Immature Gran # Absolute Seg Neuts Absolute Band Neuts Absolute Lymphocytes Absolute Monocytes Absolute Eosinophils Platelet Estimate Polychromasia Oval Macrocytes PT 12.7 SEC SEC (12.0-15.0) INR 0.93 (0.83-1.16) APTT 28.1 SEC SEC (23.0-38.0) VBG Lactic Acid Sodium 141 mEq/L mEq/L (135-145) Potassium 4.2 mEq/L mEq/L (3.5-5.2) Chloride 99 mEq/L mEq/L (97-110) Carbon Dioxide 25 mEq/l mEq/l (22-31) Anion Gap 17 mEq/L H mEq/L (8-16) BUN 16 mg/dL mg/dL (7-23) Creatinine 3.4 mg/dL H mg/dL (0.7-1.3) Estimated GFR 18 Glucose 118 mg/dL H mg/dL (70-100) Calcium 9.6 mg/dL mg/dL (8.5-10.4) Total Bilirubin 0.4 mg/dL mg/dL (0.1-1.4) Urine Color YELLOW Urine Appearance MODERATELY TURBID Urine pH 7.0 (5.0-7.5) Ur Specific [place] 1.011 (1.002-1.030) Urine Protein 3+ H (NEGATIVE) Urine Ketones NEGATIVE (NEGATIVE) Urine Blood 1+ H (NEGATIVE) Urine Nitrate NEGATIVE (NEGATIVE) Urine Bilirubin NEGATIVE (NEGATIVE) Urine Urobilinogen NEGATIVE EU EU (0.2-1.0) Ur Leukocyte Esterase 3+ H (NEGATIVE) Urine RBC 3-5 /hpf H /hpf (0-3) Urine WBC 50-182 /hpf H /hpf (0-3) Ur Epithelial Cells NONE SEEN /lpf /lpf (NONE-1+) Urine Bacteria 2+ /hpf H /hpf (NONE SEEN) Urine Mucus TRACE /lpf /lpf (NONE-1+) Urine Glucose NEGATIVE (NEGATIVE) Nasal Influenza A PCR Nasal Influenza B PCR 03/14/17 03/14/17 03/14/17 12:30 12:30 12:20 WBC 6.64 10^3/uL 10^3/uL (3.80-9.50) RBC 3.80 10^6/uL L 10^6/uL (4.40-6.38) Hgb 12.0 g/dL L g/dL (13.7-17.5) Hct 35.5 % L % (40.0-51.0) MCV 93.4 fL fL (81.5-99.8) MCH 31.6 pg pg (27.9-34.1) MCHC 33.8 g/dL g/dL (32.4-36.7) RDW 16.6 % H % (11.5-15.2) Plt Count 282 10^3/uL 10^3/uL (150-400) MPV 9.3 fL fL (8.7-11.7) Neut % (Auto) Not Reported Lymph % (Auto) Not Reported Dukes % (Auto) Not Reported Eos % (Auto) Not Reported Baso % (Auto) Not Reported Nucleat RBC Rel Count 0.0 % % (0.0-0.2) Absolute Neuts (auto) Not Reported Absolute Lymphs (auto) Not Reported Absolute Monos (auto) Not Reported Absolute Eos (auto) Not Reported Absolute Basos (auto) Not Reported Absolute Nucleated RBC 0.00 10^3/uL 10^3/uL (0-0.01) Immature Gran % Not Reported Seg Neutrophils % 69 % % Band Neutrophils % 14 % % Lymphocytes % 10 % % Monocytes % 5 % % Eosinophils % 2 % % Immature Gran # Not Reported Absolute Seg Neuts 4.58 10^/uL 10^/uL (1.70-6.50) Absolute Band Neuts 0.93 10^3/uL H 10^3/uL (0.00-0.70) Absolute Lymphocytes 0.66 10^3/uL L 10^3/uL (1.00-3.00) Absolute Monocytes 0.33 10^3/uL 10^3/uL (0.30-0.80) Absolute Eosinophils 0.13 10^3/uL 10^3/uL (0.03-0.40) Platelet Estimate ADEQUATE (ADEQ) Polychromasia 1+ H Oval Macrocytes 1+ H PT INR APTT VBG Lactic Acid 2.0 mmol/L mmol/L (0.7-2.1) Sodium Potassium Chloride Carbon Dioxide Anion Gap BUN Creatinine Estimated GFR Glucose Calcium Total Bilirubin Urine Color Urine Appearance Urine pH Ur Specific [place] Urine Protein Urine Ketones Urine Blood Urine Nitrate Urine Bilirubin Urine Urobilinogen Ur Leukocyte Esterase Urine RBC Urine WBC Ur Epithelial Cells Urine Bacteria Urine Mucus Urine Glucose Nasal Influenza A PCR NEGATIVE FOR FLU A (NEGATIVE) Nasal Influenza B PCR NEGATIVE FOR FLU B (NEGATIVE) Medications Given: Discontinued Medications Ceftriaxone Sodium 1 gm/ (Sterile Water) 10 mls @ 150 mls/hr IV EDNOW ONE PRN Reason: Protocol Stop: 03/14/17 13:37 Last Admin: 03/14/17 14:20 Dose: 10 mls Sodium Chloride (Ns) 1,000 mls @ 0 mls/hr IV EDNOW ONE; Wide Open PRN Reason: Protocol Stop: 03/14/17 13:39 Last Admin: 03/14/17 14:23 Dose: 1,000 mls Departure - Departure Disposition: [facility] In[facility] Acute Clinical Impression: Pyelonephritis, Fever Condition: Fair
[2017-03-14 12:51] LABS: INR 0.93 (0.83-1.16); PROTIME(PATIENT) 12.7 SEC (12.0-15.0)
[2017-03-14 13:02] LABS: PLATELET COUNT 282 10^3/uL (150-400)
[2017-03-14] MEDS ORDERED: cefTRIAXone 1 GM in STERILE WATER INJ 10 ML IV ONE (13:34)
[2017-03-14] MEDS ORDERED: NS 1,000 ML IV ONE (13:38)
[2017-03-14] MEDS ORDERED: HYDROCODONE/APAP 5/325 TAB PO PRN (14:27)
[2017-03-14] MEDS ORDERED: CALCIUM CARBONATE 500 MG CHEWABLE TAB PO PRN (14:27)
[2017-03-14] MEDS ORDERED: ONDANSETRON 4 MG/2 ML VIAL IVP PRN (14:28)
[2017-03-14] MEDS ORDERED: ONDANSETRON DISINTEGRATING 4 MG TAB PO PRN (14:28)
[2017-03-14] MEDS ORDERED: ACETAMINOPHEN 325 MG TAB PO PRN (14:28)
--- NOTE | 2017-03-14 14:29 | PDCONSULT ---
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 He completed an HD treatment at [facility] today, however, was unable to stand up afterward. He was recently discharged earlier this week from [facility] for influenza A and was sent home without rehab. He does not complain often and continues to state that nothing is wrong now. He was previously having rigors and cough which has resolved. The family has a home care nurse that is supposed to change the garnica once per month. He had an AVF placed in November, which is now working well with 2 needles, however still has TDC in his chest. PMH: HTN, HL, obstructive nephropathy, ESRD at [facility] MW PSH: No ETOH, non-smoker, lives at home with and close family Fam Hx: No known h/o ESRD ROS: Unremarkable with the exception of HPI. Medications: List reviewed. NKDA Objective: Temp Pulse Resp BP Pulse Ox 38.2 C 18 L 130 H 118/91 H 94 03/14/17 12:54 03/14/17 12:54 03/14/17 12:54 03/14/17 12:54 03/14/17 12:54 Physical Exam: Gen: A+Ox3, SPO, NAD HEENT: No trauma, EOMI Neck: Supple, no lymphadenopathy CV: RRR, no murmurs or rubs Lungs: Poor inspiratory effort, CTA Abd: Soft, NT, ND Ext: Garnica in place, no edema L AVF soft thrill, good bruit, R TDC Labs: WBC 6.64 10^3/uL (3.80-9.50) 03/14/17 12:30 RBC 3.80 10^6/uL (4.40-6.38) L 03/14/17 12:30 Hgb 12.0 g/dL (13.7-17.5) L 03/14/17 12:30 Hct 35.5 % (40.0-51.0) L 03/14/17 12:30 MCV 93.4 fL (81.5-99.8) 03/14/17 12:30 MCH 31.6 pg (27.9-34.1) 03/14/17 12:30 MCHC 33.8 g/dL (32.4-36.7) 03/14/17 12:30 RDW 16.6 % (11.5-15.2) H 03/14/17 12:30 Plt Count 282 10^3/uL (150-400) 03/14/17 12:30 MPV 9.3 fL (8.7-11.7) 03/14/17 12:30 Neut % (Auto) Not Reported 03/14/17 12:30 Lymph % (Auto) Not Reported 03/14/17 12:30 Routt % (Auto) Not Reported 03/14/17 12:30 Eos % (Auto) Not Reported 03/14/17 12:30 Baso % (Auto) Not Reported 03/14/17 12:30 Nucleat RBC Rel Count 0.0 % (0.0-0.2) 03/14/17 12:30 Absolute Neuts (auto) Not Reported 03/14/17 12:30 Absolute Lymphs (auto) Not Reported 03/14/17 12:30 Absolute Monos (auto) Not Reported 03/14/17 12:30 Absolute Eos (auto) Not Reported 03/14/17 12:30 Absolute Basos (auto) Not Reported 03/14/17 12:30 Absolute Nucleated RBC 0.00 10^3/uL (0-0.01) 03/14/17 12:30 Immature Gran % Not Reported 03/14/17 12:30 Seg Neutrophils % 69 % 03/14/17 12:30 Band Neutrophils % 14 % 03/14/17 12:30 Lymphocytes % 10 % 03/14/17 12:30 Monocytes % 5 % 03/14/17 12:30 Eosinophils % 2 % 03/14/17 12:30 Immature Gran # Not Reported 03/14/17 12:30 Absolute Seg Neuts 4.58 10^/uL (1.70-6.50) 03/14/17 12:30 Absolute Band Neuts 0.93 10^3/uL (0.00-0.70) H 03/14/17 12:30 Absolute Lymphocytes 0.66 10^3/uL (1.00-3.00) L 03/14/17 12:30 Absolute Monocytes 0.33 10^3/uL (0.30-0.80) 03/14/17 12:30 Absolute Eosinophils 0.13 10^3/uL (0.03-0.40) 03/14/17 12:30 Platelet Estimate ADEQUATE (ADEQ) 03/14/17 12:30 Polychromasia 1+ H 03/14/17 12:30 Oval Macrocytes 1+ H 03/14/17 12:30 PT 12.7 SEC (12.0-15.0) 03/14/17 12:30 INR 0.93 (0.83-1.16) 03/14/17 12:30 APTT 28.1 SEC (23.0-38.0) 03/14/17 12:30 VBG Lactic Acid 1.6 mmol/L (0.7-2.1) 03/14/17 13:40 Sodium 141 mEq/L (135-145) 03/14/17 12:30 Potassium 4.2 mEq/L (3.5-5.2) 03/14/17 12:30 Chloride 99 mEq/L (97-110) 03/14/17 12:30 Carbon Dioxide 25 mEq/l (22-31) 03/14/17 12:30 Anion Gap 17 mEq/L (8-16) H 03/14/17 12:30 BUN 16 mg/dL (7-23) 03/14/17 12:30 Creatinine 3.4 mg/dL (0.7-1.3) H 03/14/17 12:30 Estimated GFR 18 03/14/17 12:30 Glucose 118 mg/dL (70-100) H 03/14/17 12:30 Calcium 9.6 mg/dL (8.5-10.4) 03/14/17 12:30 Total Bilirubin 0.4 mg/dL (0.1-1.4) 03/14/17 12:30 Urine Color YELLOW 03/14/17 13:05 Urine Appearance MODERATELY TURBID 03/14/17 13:05 Urine pH 7.0 (5.0-7.5) 03/14/17 13:05 Ur Specific [place] 1.011 (1.002-1.030) 03/14/17 13:05 Urine Protein 3+ (NEGATIVE) H 03/14/17 13:05 Urine Ketones NEGATIVE (NEGATIVE) 03/14/17 13:05 Urine Blood 1+ (NEGATIVE) H 03/14/17 13:05 Urine Nitrate NEGATIVE (NEGATIVE) 03/14/17 13:05 Urine Bilirubin NEGATIVE (NEGATIVE) 03/14/17 13:05 Urine Urobilinogen NEGATIVE EU (0.2-1.0) 03/14/17 13:05 Ur Leukocyte Esterase 3+ (NEGATIVE) H 03/14/17 13:05 Urine RBC 3-5 /hpf (0-3) H 03/14/17 13:05 Urine WBC 50-182 /hpf (0-3) H 03/14/17 13:05 Ur Epithelial Cells NONE SEEN /lpf (NONE-1+) 03/14/17 13:05 Urine Bacteria 2+ /hpf (NONE SEEN) H 03/14/17 13:05 Urine Mucus TRACE /lpf (NONE-1+) 03/14/17 13:05 Urine Glucose NEGATIVE (NEGATIVE) 03/14/17 13:05 Nasal Influenza A PCR NEGATIVE FOR FLU A (NEGATIVE) 03/14/17 12:20 Nasal Influenza B PCR NEGATIVE FOR FLU B (NEGATIVE) 03/14/17 12:20 A/P: The patient is an 81 y/o M with ESRD on HD MWF who presents after recent discharge for influenza A now with weakness and inability to stand-up after HD today with probable UTI. -started on bs abx in the ED -urine culture pending -change garnica -daily labs -PT and evaluation for rehab -may remove TDC in chest, AVF working well per [facility] nursing -blood cultures pending -renal diet -continue home meds including flomax -will dialyze on Friday if still admitted Consult appreciated, please contact if further questions #[phone].
--- NOTE | 2017-03-14 14:55 | PDGENHP ---
History and Physical - Chief Complaint fever, weakness - History of Present Illness 81 yo male with hx of ESRD had dialysis today and per report he was found to have a fever and weakness and sent to the E.D. In the E.D, CXR was unremarkable. UA was c/w likely infection. He denies any resp sxs. He does not have any flank tenderness. He denies urinary sx's. His says that he is still slightly weak but much better after receiving IVF in the E.D. He was also started on Rocephin. He does not have any confusion. His says they told her he had a fever at dialysis but otherwise had been doing well until today. PMHx: ESRD, DMII, HTN, Stroke, Urinary retention and strictures PSHx: craniectomy, urethrotomy, abd surgery soc hx: , no T/E/I, hungarian speaking only fmhx: unknown History Information - Allergies/Home Medication List Allergies/Adverse Reactions: No Allergies [NKDA] Allergy (Verified 03/07/17 12:14) No Allergies Allergy (Unknown, Uncoded 02/15/17 03:31) Home Medications: Tamsulosin HCl [Flomax 0.4 MG (*)] 0.8 mg PO SUTUTHSA 01/27/12 [Last Taken 03/13] Lovastatin 20 mg PO SUTUTHSA 12/17/16 [Last Taken 03/13/17] Aspirin [Aspirin 81mg (*)] 81 mg PO SUTUTHSA 03/07/17 [Last Taken 03/13/17] Calcium Carbonate [Tums 500MG (*)] 500 mg PO DAILY PRN 03/07/17 [Last Taken ] Cholecalciferol Vit D3 [Vitamin D3 2000 units tab (OTC)] 2,000 units PO SUTUTHSA 03/07/17 [Last Taken 03/13/17] Hydrocodone/APAP 5/325 [Union 5/325 (*)] 1 - 2 tab PO Q4-6PRN PRN 03/14/17 [ Last Taken 03/13/17] Multivitamins [Multivitamin (*)] 1 each PO SUTUTHSA 03/14/17 [Last Taken ] I have personally reviewed and updated: medical history, social history - Social History Smoking Status: Never smoked Review of Systems Review of Systems: ROS: 10pt was reviewed & negative except for what was stated in HPI & below Physical Exam Physical Exam: Temp Pulse Resp BP Pulse Ox 36.6 C 113 H 18 125/74 H 95 03/14/17 14:00 03/14/17 14:00 03/14/17 14:00 03/14/17 14:00 03/14/17 14:00 Constitutional: no apparent distress, appears nourished Eyes: PERRL, EOMI Ears, Nose, Mouth, Throat: moist mucous membranes, hearing normal Cardiovascular: tachycardia Gastrointestinal: normoactive bowel sounds, soft, non-tender abdomen Genitourinary: no bladder fullness Musculoskeletal: generalized weakness, other (no cva tenderness) Neurologic: AAOx3 Psychiatric: interacting appropriately, not anxious, not encephalopathic Lymph, Heme, Immunologic: No petechiae Lab Data & Imaging Review 03/14/17 12:30 03/14/17 12:30 WBC 6.64 10^3/uL (3.80-9.50) 03/14/17 12:30 RBC 3.80 10^6/uL (4.40-6.38) L 03/14/17 12:30 Hgb 12.0 g/dL (13.7-17.5) L 03/14/17 12:30 Hct 35.5 % (40.0-51.0) L 03/14/17 12:30 MCV 93.4 fL (81.5-99.8) 03/14/17 12:30 MCH 31.6 pg (27.9-34.1) 03/14/17 12:30 MCHC 33.8 g/dL (32.4-36.7) 03/14/17 12:30 RDW 16.6 % (11.5-15.2) H 03/14/17 12:30 Plt Count 282 10^3/uL (150-400) 03/14/17 12:30 MPV 9.3 fL (8.7-11.7) 03/14/17 12:30 Neut % (Auto) Not Reported 03/14/17 12:30 Lymph % (Auto) Not Reported 03/14/17 12:30 [place] % (Auto) Not Reported 03/14/17 12:30 Eos % (Auto) Not Reported 03/14/17 12:30 Baso % (Auto) Not Reported 03/14/17 12:30 Nucleat RBC Rel Count 0.0 % (0.0-0.2) 03/14/17 12:30 Absolute Neuts (auto) Not Reported 03/14/17 12:30 Absolute Lymphs (auto) Not Reported 03/14/17 12:30 Absolute Monos (auto) Not Reported 03/14/17 12:30 Absolute Eos (auto) Not Reported 03/14/17 12:30 Absolute Basos (auto) Not Reported 03/14/17 12:30 Absolute Nucleated RBC 0.00 10^3/uL (0-0.01) 03/14/17 12:30 Immature Gran % Not Reported 03/14/17 12:30 Seg Neutrophils % 69 % 03/14/17 12:30 Band Neutrophils % 14 % 03/14/17 12:30 Lymphocytes % 10 % 03/14/17 12:30 Monocytes % 5 % 03/14/17 12:30 Eosinophils % 2 % 03/14/17 12:30 Immature Gran # Not Reported 03/14/17 12:30 Absolute Seg Neuts 4.58 10^/uL (1.70-6.50) 03/14/17 12:30 Absolute Band Neuts 0.93 10^3/uL (0.00-0.70) H 03/14/17 12:30 Absolute Lymphocytes 0.66 10^3/uL (1.00-3.00) L 03/14/17 12:30 Absolute Monocytes 0.33 10^3/uL (0.30-0.80) 03/14/17 12:30 Absolute Eosinophils 0.13 10^3/uL (0.03-0.40) 03/14/17 12:30 Platelet Estimate ADEQUATE (ADEQ) 03/14/17 12:30 Polychromasia 1+ H 03/14/17 12:30 Oval Macrocytes 1+ H 03/14/17 12:30 PT 12.7 SEC (12.0-15.0) 03/14/17 12:30 INR 0.93 (0.83-1.16) 03/14/17 12:30 APTT 28.1 SEC (23.0-38.0) 03/14/17 12:30 VBG Lactic Acid 1.6 mmol/L (0.7-2.1) 03/14/17 13:40 Sodium 141 mEq/L (135-145) 03/14/17 12:30 Potassium 4.2 mEq/L (3.5-5.2) 03/14/17 12:30 Chloride 99 mEq/L (97-110) 03/14/17 12:30 Carbon Dioxide 25 mEq/l (22-31) 03/14/17 12:30 Anion Gap 17 mEq/L (8-16) H 03/14/17 12:30 BUN 16 mg/dL (7-23) 03/14/17 12:30 Creatinine 3.4 mg/dL (0.7-1.3) H 03/14/17 12:30 Estimated GFR 18 03/14/17 12:30 Glucose 118 mg/dL (70-100) H 03/14/17 12:30 Calcium 9.6 mg/dL (8.5-10.4) 03/14/17 12:30 Total Bilirubin 0.4 mg/dL (0.1-1.4) 03/14/17 12:30 Urine Color YELLOW 03/14/17 13:05 Urine Appearance MODERATELY TURBID 03/14/17 13:05 Urine pH 7.0 (5.0-7.5) 03/14/17 13:05 Ur Specific [place] 1.011 (1.002-1.030) 03/14/17 13:05 Urine Protein 3+ (NEGATIVE) H 03/14/17 13:05 Urine Ketones NEGATIVE (NEGATIVE) 03/14/17 13:05 Urine Blood 1+ (NEGATIVE) H 03/14/17 13:05 Urine Nitrate NEGATIVE (NEGATIVE) 03/14/17 13:05 Urine Bilirubin NEGATIVE (NEGATIVE) 03/14/17 13:05 Urine Urobilinogen NEGATIVE EU (0.2-1.0) 03/14/17 13:05 Ur Leukocyte Esterase 3+ (NEGATIVE) H 03/14/17 13:05 Urine RBC 3-5 /hpf (0-3) H 03/14/17 13:05 Urine WBC 50-182 /hpf (0-3) H 03/14/17 13:05 Ur Epithelial Cells NONE SEEN /lpf (NONE-1+) 03/14/17 13:05 Urine Bacteria 2+ /hpf (NONE SEEN) H 03/14/17 13:05 Urine Mucus TRACE /lpf (NONE-1+) 03/14/17 13:05 Urine Glucose NEGATIVE (NEGATIVE) 03/14/17 13:05 Nasal Influenza A PCR NEGATIVE FOR FLU A (NEGATIVE) 03/14/17 12:20 Nasal Influenza B PCR NEGATIVE FOR FLU B (NEGATIVE) 03/14/17 12:20 Assessment & Plan Assessment: #Fever #Acute Cystitis #Sinus tachycardia #Recent Influenza #ESRD, HD on M/W/ Plan: Observation Hold off further IVF cont Rocephin Await cultures Heparin for DVT proph Full code
[2017-03-14] MEDS: HEPARIN 5,000 UNIT/0.5 ML SYR SC SCH (22:08)
[2017-03-14] MEDS: BENZONATATE 100 MG CAP PO PRN (22:14)
[2017-03-15 05:57] LABS: PLATELET COUNT 252 10^3/uL (150-400)
[2017-03-15] MEDS: HEPARIN 5,000 UNIT/0.5 ML SYR SC SCH ×3 (06:11→22:04)
[2017-03-15] MEDS ORDERED: CEFEPIME HCL 1 GM in STERILE WATER INJ 11.3 ML IV ONE (07:15)
[2017-03-15] MEDS: BENZONATATE 100 MG CAP PO PRN (07:59)
[2017-03-15] MEDS ORDERED: cefTRIAXone 1 GM in STERILE WATER INJ 10 ML IV SCH (09:00)
--- NOTE | 2017-03-15 10:05 | HOSPPROG ---
Hospitalist Progress Note Assessment/Plan: CAUTI - chronic indwelling garnica 2/2 chronic obstructive uropathy, had urethral dilation in 01/[address] Nicole, now with chronic indefinite indwelling garnica with recurrent UTI's. Culture data reviewed, h/o pseudomonas with prior FQ resistance noted. -change garnica, discussed with RN -change atbx to Cefepime -await culture data and tailor as indicated ESRD - lytes ok. Cont M/W/F HD regimen. -renal following, appreciate assistance DM type 2 - bg's fine, not on orals or insulin. Follow, SSI if elevated bg's Metabolic acidosis - mild, consider oral bicarb if worsnening. -follow H/O CVA - cont asa, statin Full code DVT PPLX - high risk, heparin Dispo - cont inpt, PT/OT evals Subjective: Pt seems a bit confused. Denies pain. +fever overnight. No N/V/D. Objective: Vital Signs Temp Pulse Resp BP Pulse Ox 36.6 C 56 L 16 137/66 H 93 03/15/17 07:07 03/15/17 07:07 03/15/17 07:07 03/15/17 07:07 03/15/17 07:07 Laboratory Results 03/15/17 05:34 03/15/17 05:34 03/14/17 03/15/17 03/16/17 05:59 05:59 05:59 Intake Total 2000 Output Total 200 Balance 1800 PT 12.7 SEC (12.0-15.0) 03/14/17 12:30 INR 0.93 (0.83-1.16) 03/14/17 12:30 - Physical Exam Constitutional: no apparent distress Eyes: PERRL Ears, Nose, Mouth, Throat: moist mucous membranes Cardiovascular: regular rate and rhythym Respiratory: no respiratory distress, clear to auscultation Gastrointestinal: normoactive bowel sounds, soft, non-tender abdomen Skin: warm Musculoskeletal: full muscle strength Neurologic: AAOx3 Psychiatric: interacting appropriately ICD10 Worksheet Patient Problems: Problems Problem Status Onset Fever Acute Pyelonephritis Acute Closed fracture of pelvis Active bladder rupture Active Bacteremia Acute Bacteremia due to Klebsiella pneumoniae Acute Influenza A Acute Lumbar canal stenosis Acute Renal failure (ARF), acute on chronic Acute Urinary tract infection Acute
--- NOTE | 2017-03-15 10:44 | PDMN ---
Medical Necessity Medical necessity: C/M review: est. > 2 [place] LOS for eval and TX of acute and persistent CAUTI, metabolic acidosis requiring ongoing IV Cefepime, acute inpt PT/OT; comorbid chronic indwelling Campbell catheter secondary to chronic obstructive uropathy, 01/2017 urethral dilation, now with chronic indwelling Campbell catheter with recurrent UTIs, history of pseudomonas with prior FQ resistance, ESRD on chronic dialysis M/W/F, type 2 diabetes, history of CVA per 03/15/2017 Hospitalist progress note.
[2017-03-15] MEDS ORDERED: NON-FORMULARY NEW DRUG (Lovastatin [Lovastatin] 20 MG) PO SCH (14:27)
[2017-03-15] MEDS: CHOLECALCIFEROL VIT D3 2,000 UNITS TAB/CAP PO SCH (15:37)
[2017-03-15] MEDS: PRAVASTATIN SODIUM 20 MG TAB PO SCH (15:37)
[2017-03-15] MEDS: TAMSULOSIN HCL 0.4 MG CAP PO SCH (15:38)
[2017-03-15] MEDS: MULTIVITAMINS 1 EACH TAB PO SCH (15:38)
[2017-03-15] MEDS: ASPIRIN 81 MG CHEWABLE TAB PO SCH (15:38)
--- NOTE | 2017-03-15 16:19 | SOAPPROG ---
SOAP Progress Note Assessment/Plan: Assessment: 81 y/o man with h/o ESRD ([facility]), DM2, HTN, chronic indwelling garnica admitted yesterday after weakness after dialysis. Garnica has been changed, on Cefepime. Recent admit for influenza. #[facility]RD- [facility] -had full HD yesterday, plan on HD again Friday but will assess daily for need -blood cx sent given fevers- would have low threshold to add Vanco and pull TDC emergently if develops sepsis- otherwise can ask IR to remove TDC Friday as AVF now working ok, risk for infection #complicated UTI, indwelling garnica -garnica exchanged -awaiting culture results -on cefepime-- would have low threshold to add Vanco if worse given risk line infection -CXR neg pna (recent influenza) #anemia CKD -Hb at goal #MBD of CKD -check phos am labs, renal diet -not on binder currently #Dm2- not on meds, monitoring bs I discussed with Dr. Amaral and family Ca Warren MD [facility] [phone] 03/15/17 17:55 Subjective: 81 y/o man with h/o ESRD ([facility]), chronic indwelling garnica, DM2 admitted yesterday after weakness after dialysis. Garnica has been changed, on Cefepime. Recent admit for resp infection/influenza. Now with fevers. Has TDC in and using AVF ok at unit per family. Feels better today. I spoke to pt using office worker and family. CXR neg for penumonia, cultures pending. Objective: Vital Signs Temp Pulse Resp BP Pulse Ox 36.8 C 85 18 134/81 H 93 03/15/17 12:00 03/15/17 12:00 03/15/17 12:00 03/15/17 12:00 03/15/17 12:00 PT 12.7 SEC (12.0-15.0) 03/14/17 12:30 INR 0.93 (0.83-1.16) 03/14/17 12:30 Physical Exam - Physical Exam General Appearance: alert, no apparent distress EENT: other (mmm) Neck: supple, other (RIJ TDC no erythema/drainage noted) Respiratory: lungs clear Cardiac/Chest: regular rate, rhythm Abdomen: normal bowel sounds, non-tender, soft Skin: warm/dry Extremities: other (no edema, LUE AVF +thrill/bruit, mature) Neuro/Psych: alert, oriented x 3 ICD10 Worksheet Patient Problems: Problems Problem Status Onset Fever Acute Pyelonephritis Acute Closed fracture of pelvis Active bladder rupture Active Bacteremia Acute Bacteremia due to Klebsiella pneumoniae Acute Influenza A Acute Lumbar canal stenosis Acute Renal failure (ARF), acute on chronic Acute Urinary tract infection Acute
--- NOTE | 2017-03-15 16:39 | ASMTCMCOM ---
CM Note CM Note Notes: Pt admitted with pylenephritis, weakness after his dialysis. Here recently with the flu and PNA and discharged independent. Hx ESRD, dialysis at [facility] in [facility]. PT recommending home care vs SNF; OT, home care vs home with 24 hr supervision. Pt is Belizean speaking. CM will follow. Date Signed: 03/15/2017 04:38 PM Electronically Signed By:FATMATA Wall
[2017-03-15] MEDS: CEFEPIME HCL 1 GM in STERILE WATER INJ 11.3 ML IV SCH (17:34)
[2017-03-15] MEDS ORDERED: FLU VACC QS 2017-18 (3YR+)/PF 0.5 ML SYR (FLUARIX QUAD) IM ONE (22:59)
[2017-03-16 05:36] LABS: PLATELET COUNT 282 10^3/uL (150-400)
[2017-03-16] MEDS: HEPARIN 5,000 UNIT/0.5 ML SYR SC SCH ×3 (05:39→21:46)
--- NOTE | 2017-03-16 08:34 | SOAPPROG ---
SOAP Progress Note Assessment/Plan: Assessment: 81 y/o man with h/o ESRD ([facility]), DM2, HTN, chronic indwelling garnica admitted yesterday after weakness after dialysis. Garnica has been changed, on Cefepime. Recent admit for influenza. #ESRD- [facility] M[facility] -had full HD Friday- plan on HD again Friday -blood cx sent given fevers- NGTD. Would have low threshold to add Vanco and pull TDC emergently if develops sepsis- otherwise can ask IR to remove TDC Friday as AVF now working ok, ongoing risk for infection #complicated UTI, indwelling garnica -garnica exchanged -awaiting culture results- Klebsiella -on cefepime-- would have low threshold to add Vanco if worse given risk line infection -CXR neg pna (recent influenza) #anemia CKD -Hb at goal #MBD of CKD -check phos am labs, renal diet -not on binder currently #Dm2- not on meds, monitoring bs I discussed with Dr. Munir Warren MD [facility] [phone] 03/16/17 11:04 Subjective: Feels ok. Denies pain, n/v, fevers. Awaiting final cultures. Objective: Vital Signs Temp Pulse Resp BP Pulse Ox 36.8 C 58 L 16 120/69 98 03/16/17 07:37 03/16/17 07:37 03/16/17 07:37 03/16/17 07:37 03/16/17 07:37 Laboratory Results 03/16/17 04:59 03/16/17 04:59 03/15/17 03/16/17 03/17/17 05:59 05:59 05:59 Output Total 1100 Balance -1100 PT 12.7 SEC (12.0-15.0) 03/14/17 12:30 INR 0.93 (0.83-1.16) 03/14/17 12:30 Physical Exam - Physical Exam General Appearance: no apparent distress Neck: supple, other (RIJ TDC no drainage, no pain along tunnel) Respiratory: lungs clear Cardiac/Chest: regular rate, rhythm, other (no rub) Abdomen: non-tender, soft Extremities: other (no edema) Neuro/Psych: alert, oriented x 3 ICD10 Worksheet Patient Problems: Problems Problem Status Onset Fever Acute Pyelonephritis Acute Closed fracture of pelvis Active bladder rupture Active Bacteremia Acute Bacteremia due to Klebsiella pneumoniae Acute Influenza A Acute Lumbar canal stenosis Acute Renal failure (ARF), acute on chronic Acute Urinary tract infection Acute
[2017-03-16] MEDS: CEFEPIME HCL IV SCH (10:13)
[2017-03-16] MEDS: NS IV SCH (10:13)
--- NOTE | 2017-03-16 12:05 | HOSPPROG ---
Hospitalist Progress Note Assessment/Plan: CAUTI - chronic indwelling garnica 2/2 chronic obstructive uropathy, had urethral dilation in 01/[address] Nicole, now with chronic indefinite indwelling garnica with recurrent UTI's. UCx growing klebsiella sensitive to cefepime. BCxs NGTD. -changed garnica, discussed with RN -cont Cefepime -likely change to po atbx tomorrow if BCx's remain neg ESRD - lytes ok. Cont M/W/F HD regimen, now using LUE AVF -remove tunneled catheter, requested IR consult for this -renal following, appreciate assistance DM type 2 - bg's fine, not on orals or insulin. Follow, SSI if elevated bg's Metabolic acidosis - consider oral bicarb if worsening. Discussed with renal. H/O CVA - cont asa, statin Full code DVT PPLX - high risk, heparin- hold in am for IR procedure Dispo - cont inpt, PT/OT evals Subjective: PT feels ok. He and both note he is stronger today. No fevers /chills. No N/V/D. Eating well. Objective: Vital Signs Temp Pulse Resp BP Pulse Ox 36.3 C 71 18 149/82 H 91 L 03/16/17 11:01 03/16/17 11:01 03/16/17 11:01 03/16/17 11:01 03/16/17 11:01 Laboratory Results 03/16/17 04:59 03/16/17 04:59 03/15/17 03/16/17 03/17/17 05:59 05:59 05:59 Output Total 1100 225 Balance -1100 -225 PT 12.7 SEC (12.0-15.0) 03/14/17 12:30 INR 0.93 (0.83-1.16) 03/14/17 12:30 - Physical Exam Constitutional: no apparent distress Eyes: PERRL Ears, Nose, Mouth, Throat: moist mucous membranes Cardiovascular: regular rate and rhythym Respiratory: no respiratory distress Gastrointestinal: normoactive bowel sounds, soft, non-tender abdomen Skin: warm Musculoskeletal: full muscle strength Neurologic: AAOx3 Psychiatric: interacting appropriately ICD10 Worksheet Patient Problems: Problems Problem Status Onset Fever Acute Pyelonephritis Acute Closed fracture of pelvis Active bladder rupture Active Bacteremia Acute Bacteremia due to Klebsiella pneumoniae Acute Influenza A Acute Lumbar canal stenosis Acute Renal failure (ARF), acute on chronic Acute Urinary tract infection Acute
[2017-03-16] MEDS: MULTIVITAMINS 1 EACH TAB PO SCH (14:59)
[2017-03-16] MEDS: PRAVASTATIN SODIUM 20 MG TAB PO SCH (14:59)
[2017-03-16] MEDS: CHOLECALCIFEROL VIT D3 2,000 UNITS TAB/CAP PO SCH (14:59)
[2017-03-16] MEDS: ASPIRIN 81 MG CHEWABLE TAB PO SCH (14:59)
[2017-03-16] MEDS: TAMSULOSIN HCL 0.4 MG CAP PO SCH (14:59)
[2017-03-16 20:20] VITALS: RESP 16
[2017-03-17] MEDS: HEPARIN 5,000 UNIT/0.5 ML SYR SC SCH ×2 (03:12→15:09)
--- NOTE | 2017-03-17 08:40 | SOAPPROG ---
SOAP Progress Note Assessment/Plan: Assessment: Saw Eric on dialysis this am with the interpretor. He was on dialysis. 1. ESRD Stable. Fistula working. Remove tunneled catheter. 2. UTI On Cefipime. This is going to remain a chronic problem. Urology apparently declaring that patient will need permanent indwelling garnica 3. Plan of Care Pt alert and oriented. His affect is flat and he is stoic. I asked him about dialysis. He states he is doing well with this. He and family do not appear to be ready for hospice, but I feel it is unlikely he is going to do well with this. 4. Anemia Stable. Plan: 03/17/17 08:37 Subjective: No complaints Objective: Vital Signs Temp Pulse Resp BP Pulse Ox 37.0 C 59 L 16 129/72 H 95 03/17/17 04:00 03/17/17 04:00 03/17/17 04:00 03/17/17 04:00 03/17/17 04:00 Laboratory Results 03/16/17 04:59 03/17/17 05:05 03/16/17 03/17/17 03/18/17 05:59 05:59 05:59 Output Total 1100 1275 Balance -1100 -1275 PT 12.7 SEC (12.0-15.0) 03/14/17 12:30 INR 0.93 (0.83-1.16) 03/14/17 12:30 Physical Exam - Physical Exam General Appearance: no apparent distress Neck: other (tunneled cath site without redness) Respiratory: rales (LLL) Cardiac/Chest: regular rate, rhythm Extremities: pedal edema (trace B) Neuro/Psych: alert ICD10 Worksheet Patient Problems: Problems Problem Status Onset Fever Acute Pyelonephritis Acute Closed fracture of pelvis Active bladder rupture Active Bacteremia Acute Bacteremia due to Klebsiella pneumoniae Acute Influenza A Acute Lumbar canal stenosis Acute Renal failure (ARF), acute on chronic Acute Urinary tract infection Acute
[2017-03-17 11:59] VITALS: BP 147/93; TEMP 98.1
[2017-03-17] MEDS: CEFEPIME HCL IV SCH (12:11)
[2017-03-17] MEDS: NS IV SCH (12:11)
[2017-03-17] MEDS ORDERED: HEPARIN 50,000 UNIT/10 ML VIAL ONE (14:30)
[2017-03-17 15:02] VITALS: PULSE 65; O2SAT 95
--- NOTE | 2017-03-17 15:11 | PDIAF ---
- Diagnosis Diagnosis: ESRD, UTI, indwelling garnica Code Status: Full Code - Medication Management Discharge Medications: Medications to Continue on Transfer Tamsulosin HCl [Flomax 0.4 MG (*)] 0.8 mg PO SUTUTHSA 01/27/12 [Last Taken 03/13] Lovastatin 20 mg PO SUTUTHSA 12/17/16 [Last Taken 03/13/17] Aspirin [Aspirin 81mg (*)] 81 mg PO SUTUTHSA 03/07/17 [Last Taken 03/13/17] Calcium Carbonate [Tums 500MG (*)] 500 mg PO DAILY PRN 03/07/17 [Last Taken ] Cholecalciferol Vit D3 [Vitamin D3 2000 units tab (OTC)] 2,000 units PO SUTUTHSA 03/07/17 [Last Taken 03/13/17] Hydrocodone/APAP 5/325 [[place] 5/325 (*)] 1 - 2 tab PO Q4-6PRN PRN 03/14/17 [ Last Taken 03/13/17] Multivitamins [Multivitamin (*)] 1 each PO SUTUTHSA 03/14/17 [Last Taken ] levOFLOXACIN [levAQUIN (*)] 500 mg PO Q48H #5 tab 03/17/17 [Last Taken Unknown] Discharge Medications: Refer to the Discharge Home Medication list for PRN reason. PICC Care - Routine: Yes - Orders Services needed: Home Care, Registered Nurse, Certified Green Building Materials Designer, Physical Therapy, Occupational Therapy Home Care Face to Face: I certify that this patient was under my care and that I had the required [id number] encounter meeting the encounter requirements on the discharge day. My findings support the fact that the patient is homebound as defined in Home Care Face to Face Continued: CMS Chapter 7 Medicare Benefits Manual 30.1.1 , The condition of the patient is such that there exists a normal inability to leave home and consequently, leaving home would require a considerable and taxing effort. Isolation Type: None Diet Recommendation: other (Renal diet) Additional: right chest tunneled dialysis catheter care - Follow Up Care Current Providers and Referrals: Patient,NotPresent [Unknown] - As per Instructions
--- NOTE | 2017-03-17 16:47 | ASDISCHSUM ---
Discharge Information Plan Status:Home with No Needs Medically Cleared to Leave:03/16/2017 Discharge Date:03/17/2017 04:23 PM CM D/C Disposition: ADT D/C Disposition:Home Health Service Projected Discharge Date:03/17/2017 12:00 AM Transportation at D/C: Discharge Delay Reason: Follow-Up Date:03/17/2017 12:00 AM Discharge Slot: Final Diagnosis: Placement Information Patient Contact Information Contact Name:YASSINE Relationship: Address:[address] Work Phone: City:[place] [facility] Phone: State/Zip Code:[place] [address] Email: Financial Information Financial Class: Primary Plan Desc:MEDICARE INPATIENT Primary Plan Number:[id number] Secondary Plan Desc:MEDICA[place] Secondary Plan Number:[id number] Assessment Information [facility] CM Progress Note CM Note CM Note Notes: Pt admitted with pylenephritis, weakness after his dialysis. Here recently with the flu and PNA and discharged independent. Hx ESRD, dialysis at [facility] in [facility]. PT recommending home care vs SNF; OT, home care vs home with 24 hr supervision. Pt is Lithuanian speaking. CM will follow. Date Signed: 03/15/2017 04:38 PM Electronically Signed By:FATMATA Wall Case Management Discharge Plan Note Case Management Discharge Discharge Order Complete? Answers: Yes Patient to Obtain Answers: via Family Medications Transportation Arranged Answers: Family/Friends EMTALA Complete Answers: No Case Management Transport Answers: No Form Complete Faxed Final Orders Answers: No Agency/Facility Transfer Answers: No Report Printed & Faxed to Receiving Agency Family Notified Answers: Yes Notes: Spoke w/ Discharge Comments Notes: CM met w/ pt and for dispo planning w/ an eyelet maker. Regardless of therapies recommendations. Pt and report that they will not have any needs. attributes his weakness to the long hours that he spends at dialysis. reports that his two hospitalizations to the hospital was after a dialysis session. CM encouraged pt and to call his PCP if they have a need. CM available for changes. Plan: Independent Date Signed: 03/17/2017 03:47 PM Electronically Signed By:DONAN Solis Intervention Information Intervention Type:*IM-Signed Date of Service:03/17/2017 03:49 PM Patient Type:Inpatient Staff Member:DONNA Grant Michelle Hours: Discipline: Severity: Comment:
--- NOTE | 2017-03-17 23:41 | GDS ---
[f rep st] DISCHARGE SUMMARY DISCHARGE DIAGNOSES: 1. Catheter-associated urinary tract infection secondary to Klebsiella. 2. End-stage renal disease, dialysis dependent, with a malfunctioning left upper extremity arteriove nous fistula and presence of a right chest tunneled dialysis catheter. 3. Type 2 diabetes mellitus. 4. Metabolic acidosis. 5. History of cerebrovascular accident. CONSULTANTS: Dr. Chase Zaldivar, DO, Nephrology. HOSPITAL COURSE: For details, please see the history and physical dated March 14, 2017. In brief, the patient is an 81-year-old male with history of end-stage renal disease, who is dialysis dependen t and has a chronic indwelling Campbell catheter due to chronic obstructive uropathy requiring previous urethral dilation, presented to the emergency department with fever and weakness. His urinalysis was consistent with the UTI, and given his indwelling catheter, he was treated with IV cefepime. His ur ine culture grew Klebsiella oxytocia which was sensitive to both cefepime, as well as levofloxacin. He remained afebrile throughout his hospitalization. He had no signs of sepsis. He underwent hemodi alysis per his usual regimen. Initially, there were plans to remove his tunneled dialysis catheter due to risk for infection as his AV fistula has matured and has been functioning during dialysis. However, during dialysis on the mo rning of discharge, his AV fistula malfunctioned, and therefore, will leave his tunneled dialysis cat heter in place for now. It was thought he may benefit from a [facility] facility for rehab, although his wished to take him home. Our therapy team felt that this was a reasonable plan with home health services. DISPOSITION: Patient is discharged home with home health care in stable condition with home health s ervices including RN, PT, OT, LANDSCAPE MAINTENANCE INTERNSHIP. FOLLOWUP: The patient will follow up with [facility] for ongoing hemodialysis. DISCHARGE MEDICATIONS: Please see [employer] for complete updated outpatient medication list. New med ications on discharge include levofloxacin 500 mg p.o. q.48 hours, #5, no refills. /[id number]/MODL
== END 2017-03-17 16:23 | disposition home health service (06) | DRG 698 ==
LOC: EDBD → EDUNIT# → INTOOBSV 13:34 → F3E 14:41 → OBSVTOIN 03-15 10:33
PROVIDERS: ADMIT Family Medicine; ATTEND Family Medicine
PROC: 5A1D70Z Performance of Urinary Filtration, Intermittent, Less than 6 Hours Per Day (ICD-10-PCS; principal; 2017-03-16)
DX: T83.518A Infection and inflammatory reaction due to other urinary catheter, initial encounter (principal); N18.6 End stage renal disease; E87.2 Acidosis; T82.898A Other specified complication of vascular prosthetic devices, implants and grafts, initial encounter; B96.1 Klebsiella pneumoniae [K. pneumoniae] as the cause of diseases classified elsewhere; Z99.2 Dependence on renal dialysis; E11.9 Type 2 diabetes mellitus without complications; Z86.73 Personal history of transient ischemic attack (TIA), and cerebral infarction without residual deficits; Z23 Encounter for immunization
CPT/HCPCS: 96374; 97116-GP; 97162-GP; 97165-GO; 97530-GO; 97535-GO; G0008; G0378; G8978-GP-CK; G8979-GP-CI; G8987-GO-CJ; G8988-GO-CI; G8989-GO-CJ; J0692; J0696; J1644

== ENCOUNTER → 2017-04-02 | Day surgery (SDC) | payer OTHER, MEDICAID | END | disposition home or self-care (01) | LOC: FIMAGING 11:08 | PROVIDERS: ATTEND Radiology Diagnostic Radiology | DX: N18.6 End stage renal disease (principal); Z86.73 Personal history of transient ischemic attack (TIA), and cerebral infarction without residual deficits ==

== ENCOUNTER 2017-07-02 12:21 | Emergency (ER) | payer OTHER, MEDICAID ==
[2017-07-02 12:38] VITALS: BP 101/75
--- NOTE | 2017-07-02 13:26 | EDPHY ---
General Time Seen by Provider: 07/02/17 13:23 Narrative: CHIEF COMPLAINT: bleeding from dialysis site HISTORY OF PRESENT ILLNESS: Patient presents with complaints of bleeding from his dialysis access site. He has CKD requiring MWF hemodialysis. He started today at 05:00, with access of his LUE fistula. He reports that when the "needle fell out" he began "bleeding heavily" from the site. The power equipment technology instructor was reportedly concerned that he may need emergent intervention, thus he presents to ED. This occurred over an hour ago, and the bleeding has reportedly stopped while waiting to be seen. No bleeding from any other site. No complaints in the LUE distal to the bleeding. HPI obtained using the hospital's certified American assistant speech language pathologist at bedside in patient's room. ESTABLISHED PROVIDER: [facility] REVIEW OF SYSTEMS: negative unless otherwise noted in the HPI PAST MEDICAL HISTORY: CKD requiring MWF dialysis PAST SURGICAL HISTORY: no recent surgeries. LUE fistula placed SOCIAL HISTORY: Non smoker. Lives here independently with spouse. American speaking patient FAMILY HISTORY: non contributory EXAMINATION General Appearance: Alert, no distress Cardiovascular: Pulses normal throughout with symmetric radial pulses. Brisk cap refill. LUE fistula with palpable thrill Neurological: A&O, sensory symmetric, interossei strength symmetric Skin: Warm and dry, no rash. no bleeding from dialysis access site. Extremities: Nontender, no pedal edema Psychiatric: Mood and affect normal DIFFERENTIAL DIAGNOSES: Including but not limited to hemorrhage, dialysis complication, fistula malfunction MDM: 1:20 p.m. Mild bleeding from fistula site at dialysis that has spontaneously resolved prior to examination. No abnormalities on examination, and no bleeding while observed in ED. Discussed what to watch for when discharged home. Discussed returning to ED should the bleeding return. Discharged in stable condition. MDM discussed using bruneian assistant speech language pathologist at bedside. SUPERVISION: This patient was independently evaluated without direct involvement of or examination by the attending physician. ED Precautions: Worsening pain. Erythema, edema, cyanosis, pallor, paresthesia or anesthesia. - History Smoking Status: Never smoked - Objective Vital Signs: Initial Vital Signs Temperature (C) 97.9 F 07/02/17 12:36 Heart Rate 92 07/02/17 12:36 Respiratory Rate 17 07/02/17 12:36 Blood Pressure 101/75 07/02/17 12:36 O2 Sat (%) 94 07/02/17 12:36 O2 Delivery Mode Room Air Allergies/Adverse Reactions: No Allergies [NKDA] Allergy (Verified 07/02/17 12:35) No Allergies Allergy (Unknown, Uncoded 02/15/17 03:31) Home Medications: Medication Instructions Recorded Tamsulosin HCl [Flomax 0.4 MG (*)] 0.8 mg PO SUTUTHSA 01/27/12 Lovastatin 20 mg PO SUTUTHSA 12/17/16 Aspirin [Aspirin 81mg (*)] 81 mg PO SUTUTHSA 03/07/17 Calcium Carbonate [Tums 500MG (*)] 500 mg PO DAILY PRN 03/07/17 Cholecalciferol Vit D3 [Vitamin D3 2,000 units PO SUTUTHSA 03/07/17 2000 units tab (OTC)] Hydrocodone/APAP 5/325 [[place] 1 - 2 tab PO Q4-6PRN PRN 03/14/17 5/325 (*)] Multivitamins [Multivitamin (*)] 1 each PO SUTUTHSA 03/14/17 levOFLOXACIN [levAQUIN (*)] 500 mg PO Q48H #5 tab 03/17/17 Departure - Departure Disposition: Home, Routine, Self-Care Clinical Impression: Hemorrhage of arteriovenous fistula Qualifiers: Encounter type: initial encounter Qualified Code(s): T82.838A - Hemorrhage due to vascular prosthetic devices, implants and grafts, initial encounter Condition: Good Instructions: Arteriovenous Fistula Creation for Hemodialysis (DC) Additional Instructions: 1. Contact primary care physician for outpatient follow-up 2. Return to emergency department for any return of bleeding from her fistula site 1. Llame luke doctor de cabecera para seguimiento oscar paciente externo. 2.Regrese a la noble de emergencias si regresa cualquier sangrado del paola de la fistula. Referrals: [facility],. [Clinic] - As per Instructions Print Language: American
== END 2017-07-02 13:54 | disposition home or self-care (01) ==
DX: T82.838A Hemorrhage due to vascular prosthetic devices, implants and grafts, initial encounter (principal); N18.9 Chronic kidney disease, unspecified; Z79.82 Long term (current) use of aspirin; Y82.8 Other medical devices associated with adverse incidents

== ENCOUNTER 2017-09-16 07:40 | Day surgery (SDC) | payer OTHER, MEDICAID ==
[2017-09-16] MEDS ORDERED: NALOXONE HCL 0.4 MG/ML INJ IVP PRN (07:47)
[2017-09-16] MEDS ORDERED: PROTAMINE SULFATE 50 MG/5 ML VIAL IVP PRN (07:47)
[2017-09-16] MEDS ORDERED: MEPERIDINE 25 MG/ML SYR IVP PRN (07:47)
[2017-09-16] MEDS ORDERED: fentaNYL 100 MCG/2 ML INJ IVP PRN (07:47)
[2017-09-16] MEDS ORDERED: HEPARIN 10,000 UNIT/10 ML MDV (1,000 UNIT/ML) IVP PRN (07:47)
[2017-09-16] MEDS ORDERED: ALTEPLASE 2 MG VIAL IVP PRN (07:47)
[2017-09-16] MEDS ORDERED: MIDAZOLAM 2 MG/2 ML VIAL IVP PRN (07:47)
[2017-09-16] MEDS ORDERED: FLUMAZENIL 0.5 MG/5 ML MDV IVP PRN (07:47)
[2017-09-16] MEDS ORDERED: GLUCAGON HCL 1 MG VIAL IVP PRN (07:47)
[2017-09-16] MEDS ORDERED: NS 1,000 ML IV SCH (08:00)
--- NOTE | 2017-09-16 08:39 | PDPROPOC ---
Sedation Plan of Care Sedation Plan of Care: vital signs stable, mental status noted, patient educated of risks, benefits, alternatives, patient can tolerate sedation ASA Classification: ASA 2 Planned drugs: fentanyl, midazolam Mallampati Score: Class 2 Mallampati Reference Image: Patient passed 3-3-2 rule?: Yes
--- NOTE | 2017-09-16 08:40 | PDRADPRE ---
Radiology History & Physical Indication for procedure: renal failure Home medications: Tamsulosin HCl [Flomax 0.4 MG (*)] 0.8 mg PO SUTUTHSA 01/27/12 [Last Taken 09/02] Lovastatin 20 mg PO SUTUTHSA 12/17/16 [Last Taken 09/15/17] Aspirin [Aspirin 81mg (*)] 81 mg PO SUTUTHSA 03/07/17 [Last Taken 09/15/17] Calcium Carbonate [Tums 500MG (*)] 500 mg PO DAILY PRN 03/07/17 [Last Taken ] Cholecalciferol Vit D3 [Vitamin D3 2000 units tab (OTC)] 2,000 units PO SUTUTHSA 03/07/17 [Last Taken 09/15/17] Multivitamins [Multivitamin (*)] 1 each PO SUTUTHSA 03/14/17 [Last Taken ] Allergies/Adverse Reactions: No Allergies [NKDA] Allergy (Verified 07/02/17 12:35) Mental status: A&Ox3 Heart exam: regular rate and rhythm Lungs exam: clear to auscultation Mallampati Score: Class 2 (LUE AVF with clinical signs/symptoms of stenosis. Plan to evaluate AVF with possible angioplasty or stent placement.)
[2017-09-16] MEDS ORDERED: IOPAMIDOL (ISOVUE-300) 100 ML BTL ONE (09:42)
--- NOTE | 2017-09-16 09:59 | PDRADPN ---
Radiology Procedure Note Date of Procedure: 09/16/17 Radiologist: Miko Joe Anesthesia: IV Sedation Pre-op Diagnosis: ESRD Post-op Diagnosis: ESRD Indication: Poorly functioning AVF, concern for stenosis Procedure: AVF angiography Finding(s): No dominant venous outflow tract with tortuous collateral unable to be catheterized. No central stenosis. Recommend surgical revision. Inf/Abcess present in the surg proc area at time of surgery?: No
[2017-09-16 10:51] VITALS: BP 141/73
== END 2017-09-16 11:15 | disposition home or self-care (01) ==
LOC: FIMAGING 07:40
PROVIDERS: ATTEND Internal Medicine Nephrology
PROC: 05HY33Z Insertion of Infusion Device into Upper Vein, Percutaneous Approach (ICD-10-PCS; principal; 2017-09-16 09:38)
DX: T82.590A Other mechanical complication of surgically created arteriovenous fistula, initial encounter (principal)
CPT/HCPCS: 36901; 99152; C1769; J1644; J2250; J2310; J3010; Q9967

== ENCOUNTER 2017-11-17 06:34 | Inpatient (IN) | payer OTHER, MEDICAID ==
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
[2017-11-17 09:14] LABS: PLATELET COUNT 193 10^3/uL (150-400)
[2017-11-17 09:25] LABS: INR 0.94 (0.83-1.16); PROTIME(PATIENT) 12.8 SEC (12.0-15.0)
[2017-11-17] MEDS ORDERED: ONDANSETRON 4 MG/2 ML VIAL IVP PRN ×2 (10:21→14:17)
[2017-11-17] MEDS ORDERED: ONDANSETRON DISINTEGRATING 4 MG TAB PO PRN (10:21)
[2017-11-17] MEDS ORDERED: ACETAMINOPHEN 325 MG TAB PO PRN (10:21)
[2017-11-17] MEDS ORDERED: ceFAZolin 2 GM/DEXTROSE 100 ML IV ONE (10:40)
--- NOTE | 2017-11-17 12:00 | PDCONSULT ---
Dam Tender Assistant Note: Renal Consult Note CC: Dialysis catheter issues HPI: The patient is an 82 y/o M with a known h/o obstructive nephropathy and ESRD on HD MWF at [facility] who presented to the ED this am as they were unable to access his HD catheter due to it "falling out" while he was asleep last night. The patient has some degree of dementia and is SPO. His is his primary caregiver, however his daughter Tammy is also involved. Recently had a R shane placed in September after failure of L AVF earlier this summer. Has repeatedly come to the HD unit with bleeding at cath site (negative blood cultures) or no dressing or dressing soaked in water despite efforts of staff to correct this issue. Attempted to have palliative discussion at HD unit with physician, and family supportive of DNR/DNI, however patient came to tears and did not want to sign this directive. Today, states he is "fine" and usually never has any complaints. PMH/PSH: Obstructive nephropathy with garnica catheter, ESRD, HTN, secondary hyperparathyroidism, L AVF clotted, R AVF shane, R TDC Social Hx: Lives with , no substance abuse. Family Hx: Unknown by patient. Meds: List reviewed. NKDA ROS: Negative except as per HPI. Objective: Temp Pulse Resp BP Pulse Ox 37.2 C 63 16 190/77 H 98 11/17/17 11:14 11/17/17 11:14 11/17/17 11:14 11/17/17 11:14 11/17/17 11:14 Gen: SPO, NAD, oriented to self HEENT: Dry MM, EOMI Neck: Supple CV: RRR, no murmurs Lungs: CTA b/l Abd: Soft, NT, ND EXT: No edema, R shane good thrill and bruit NEURO: Non-focal Labs: WBC 6.10 10^3/uL (3.80-9.50) 11/17/17 09:00 RBC 3.69 10^6/uL (4.40-6.38) L 11/17/17 09:00 Hgb 11.4 g/dL (13.7-17.5) L 11/17/17 09:00 POC Hgb 12.2 gm/dL (13.7-17.5) L 11/17/17 09:05 Hct 34.8 % (40.0-51.0) L 11/17/17 09:00 POC Hct 36 % (40-51) L 11/17/17 09:05 MCV 94.3 fL (81.5-99.8) 11/17/17 09:00 MCH 30.9 pg (27.9-34.1) 11/17/17 09:00 MCHC 32.8 g/dL (32.4-36.7) 11/17/17 09:00 RDW 14.0 % (11.5-15.2) 11/17/17 09:00 Plt Count 193 10^3/uL (150-400) 11/17/17 09:00 MPV 9.5 fL (8.7-11.7) 11/17/17 09:00 Neut % (Auto) 62.5 % (39.3-74.2) 11/17/17 09:00 Lymph % (Auto) 23.0 % (15.0-45.0) 11/17/17 09:00 [place] % (Auto) 8.4 % (4.5-13.0) 11/17/17 09:00 Eos % (Auto) 4.9 % (0.6-7.6) 11/17/17 09:00 Baso % (Auto) 0.7 % (0.3-1.7) 11/17/17 09:00 Nucleat RBC Rel Count 0.0 % (0.0-0.2) 11/17/17 09:00 Absolute Neuts (auto) 3.82 10^3/uL (1.70-6.50) 11/17/17 09:00 Absolute Lymphs (auto) 1.40 10^3/uL (1.00-3.00) 11/17/17 09:00 Absolute Monos (auto) 0.51 10^3/uL (0.30-0.80) 11/17/17 09:00 Absolute Eos (auto) 0.30 10^3/uL (0.03-0.40) 11/17/17 09:00 Absolute Basos (auto) 0.04 10^3/uL (0.02-0.10) 11/17/17 09:00 Absolute Nucleated RBC 0.00 10^3/uL (0-0.01) 11/17/17 09:00 Immature Gran % 0.5 % (0.0-1.1) 11/17/17 09:00 Immature Gran # 0.03 10^3/uL (0.00-0.10) 11/17/17 09:00 PT 12.8 SEC (12.0-15.0) 11/17/17 09:00 INR 0.94 (0.83-1.16) 11/17/17 09:00 APTT 30.5 SEC (23.0-38.0) 11/17/17 09:00 POC Sodium 137 mEq/L (135-145) 11/17/17 09:05 Sodium 138 mEq/L (135-145) 11/17/17 09:00 POC Potassium 4.8 mEq/L (3.3-5.0) 11/17/17 09:05 Potassium 5.1 mEq/L (3.3-5.0) H 11/17/17 09:00 POC Chloride 102 mEq/L (97-110) 11/17/17 09:05 Chloride 100 mEq/L (97-110) 11/17/17 09:00 Carbon Dioxide 22 mEq/l (22-31) 11/17/17 09:00 Anion Gap 16 mEq/L (8-16) 11/17/17 09:00 POC BUN 47 mg/dL (7-23) H 11/17/17 09:05 BUN 58 mg/dL (7-23) H 11/17/17 09:00 Creatinine 7.8 mg/dL (0.7-1.3) H* 11/17/17 09:00 POC Creatinine 8.2 mg/dL (0.7-1.3) H* 11/17/17 09:05 Estimated GFR 7 11/17/17 09:00 Glucose 96 mg/dL (70-100) 11/17/17 09:00 POC Glucose 99 mg/dL (70-100) 11/17/17 09:05 Calcium 8.6 mg/dL (8.5-10.4) 11/17/17 09:00 A/P: The patient is an 82 y/o M with PMH ESRD who presented with loss of TDC for dialysis access. ESRD on HD -missed HD this am (chair at 7am) -will do HD first thing Tue and then may be discharged Access -to OR per Dr. Oscar today for replacement of TDC -will need SPO guidance on care of this catheter -unable to use R shane for 6-8 weeks per surgery HTN/vol -difficult to obtain as use cuff on ankle -continue home meds -will UF with HD BMD -PTH>700 -started sensipar 3x weekly, unclear if compliance Obstructive nephropathy -chronic garnica -changed monthly -follows with [facility] and Hyperkalemia -renal diet -monitor on telemetry -will modulate with HD Consult appreciated, will continue to follow. Please contact if ?'s #.
[2017-11-17] MEDS ORDERED: HEPARIN 50,000 UNIT/10 ML VIAL ONE (12:12)
[2017-11-17] MEDS ORDERED: BUPIVACAINE 0.5% 30 ML SDV ONE (12:12)
[2017-11-17] MEDS ORDERED: CEFAZOLIN 2 GM/DEXTROSE/100 ML BAG IV ONE (13:19)
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
[2017-11-17] MEDS ORDERED: PROPOFOL 200 MG/20 ML VIAL ONE (13:34)
[2017-11-17] MEDS ORDERED: ALBUMIN 5% 250 ML BOTTLE IV ONE (13:37)
[2017-11-17] MEDS ORDERED: LIDOCAINE 2% 2 ML INJ ONE (14:11)
[2017-11-17] MEDS ORDERED: fentaNYL 100 MCG/2 ML INJ ONE (14:11)
[2017-11-17] MEDS ORDERED: NALOXONE HCL 0.4 MG/ML INJ IVP PRN (14:17)
[2017-11-17] MEDS ORDERED: fentaNYL 100 MCG/2 ML INJ IVP PRN (14:17)
[2017-11-17] MEDS ORDERED: ALBUTEROL 3 ML DEYVIAL IH PRN (14:17)
[2017-11-17] MEDS ORDERED: BACITRACIN ZINC 14.2 GM OINTTUBE TP ONE (14:42)
--- NOTE | 2017-11-17 14:59 | PDGENHP ---
History and Physical - Chief Complaint dialysis catheter fell out - History of Present Illness 82yo M with ESRD on HD MWF presents after HD catheter fell out while he was asleep last night. He was unable to get his routine HD today. He denies having any dyspnea, nausea, swelling, chest pain, headaches; however, he has some dementia and typically does not have any complaints. Of note, he recently had RUE AV fistula surgery after left sided fistula failed earlier this summer. In the ED, he had stable electrolytes. His BP was severely elevated but thought to be artifactual as had trouble getting accurate readings. Surgery was consulted but right AVF not yet mature and recommended tunneled dialysis catheter placement. He is being admitted for dialysis access creation and likely HD. History Information - Allergies/Home Medication List Allergies/Adverse Reactions: No Allergies [NKDA] Allergy (Verified 11/17/17 06:47) Home Medications: Lovastatin 20 mg PO DAILY 11/17/17 [Last Taken Unknown] I have personally reviewed and updated: family history, medical history, social history, surgical history - Past Medical History Additional medical history: ESRD on HD MWF, type 2 diabetes, HTN, CVA, dementia , anemia of renal disease, urinary retention 2/2 urethral strictures - Surgical History Additional surgical history: craniectomy, urethrotomy, abdominal surgery - Family History Additional family history: no pertinent family history - Social History Smoking Status: Never smoked Alcohol Use: None Drug Use: None Additional social history: , lives with Review of Systems Review of Systems: ROS: 10pt was reviewed & negative except for what was stated in HPI & below Physical Exam Physical Exam: Temp Pulse Resp BP Pulse Ox 37.2 C 63 16 202/95 H 98 11/17/17 13:24 11/17/17 13:33 11/17/17 13:33 11/17/17 13:33 11/17/17 13:33 Constitutional: no apparent distress, appears nourished, not in pain Eyes: PERRL, anicteric sclera, EOMI Ears, Nose, Mouth, Throat: moist mucous membranes, hearing normal, ears appear normal, no oral mucosal ulcers Cardiovascular: regular rate and rhythym, no murmur, rub, or gallop, edema ( mild to knees) Respiratory: no respiratory distress, no rales or rhonchi, clear to auscultation Gastrointestinal: normoactive bowel sounds, soft, non-tender abdomen, no palpable masses Genitourinary: garnica in urethra Skin: warm, normal color, no rashes or abrasions, no fluctuance, no induration, No mottled Neurologic: other (alert, oriented to self) Psychiatric: interacting appropriately, not anxious, not encephalopathic, thought process linear Lab Data & Imaging Review 11/17/17 09:00 11/17/17 09:00 WBC 6.10 10^3/uL (3.80-9.50) 11/17/17 09:00 RBC 3.69 10^6/uL (4.40-6.38) L 11/17/17 09:00 Hgb 11.4 g/dL (13.7-17.5) L 11/17/17 09:00 POC Hgb 12.2 gm/dL (13.7-17.5) L 11/17/17 09:05 Hct 34.8 % (40.0-51.0) L 11/17/17 09:00 POC Hct 36 % (40-51) L 11/17/17 09:05 MCV 94.3 fL (81.5-99.8) 11/17/17 09:00 MCH 30.9 pg (27.9-34.1) 11/17/17 09:00 MCHC 32.8 g/dL (32.4-36.7) 11/17/17 09:00 RDW 14.0 % (11.5-15.2) 11/17/17 09:00 Plt Count 193 10^3/uL (150-400) 11/17/17 09:00 MPV 9.5 fL (8.7-11.7) 11/17/17 09:00 Neut % (Auto) 62.5 % (39.3-74.2) 11/17/17 09:00 Lymph % (Auto) 23.0 % (15.0-45.0) 11/17/17 09:00 [place] % (Auto) 8.4 % (4.5-13.0) 11/17/17 09:00 Eos % (Auto) 4.9 % (0.6-7.6) 11/17/17 09:00 Baso % (Auto) 0.7 % (0.3-1.7) 11/17/17 09:00 Nucleat RBC Rel Count 0.0 % (0.0-0.2) 11/17/17 09:00 Absolute Neuts (auto) 3.82 10^3/uL (1.70-6.50) 11/17/17 09:00 Absolute Lymphs (auto) 1.40 10^3/uL (1.00-3.00) 11/17/17 09:00 Absolute Monos (auto) 0.51 10^3/uL (0.30-0.80) 11/17/17 09:00 Absolute Eos (auto) 0.30 10^3/uL (0.03-0.40) 11/17/17 09:00 Absolute Basos (auto) 0.04 10^3/uL (0.02-0.10) 11/17/17 09:00 Absolute Nucleated RBC 0.00 10^3/uL (0-0.01) 11/17/17 09:00 Immature Gran % 0.5 % (0.0-1.1) 11/17/17 09:00 Immature Gran # 0.03 10^3/uL (0.00-0.10) 11/17/17 09:00 PT 12.8 SEC (12.0-15.0) 11/17/17 09:00 INR 0.94 (0.83-1.16) 11/17/17 09:00 APTT 30.5 SEC (23.0-38.0) 11/17/17 09:00 POC Sodium 137 mEq/L (135-145) 11/17/17 09:05 Sodium 138 mEq/L (135-145) 11/17/17 09:00 POC Potassium 4.8 mEq/L (3.3-5.0) 11/17/17 09:05 Potassium 5.1 mEq/L (3.3-5.0) H 11/17/17 09:00 POC Chloride 102 mEq/L (97-110) 11/17/17 09:05 Chloride 100 mEq/L (97-110) 11/17/17 09:00 Carbon Dioxide 22 mEq/l (22-31) 11/17/17 09:00 Anion Gap 16 mEq/L (8-16) 11/17/17 09:00 POC BUN 47 mg/dL (7-23) H 11/17/17 09:05 BUN 58 mg/dL (7-23) H 11/17/17 09:00 Creatinine 7.8 mg/dL (0.7-1.3) H* 11/17/17 09:00 POC Creatinine 8.2 mg/dL (0.7-1.3) H* 11/17/17 09:05 Estimated GFR 7 11/17/17 09:00 Glucose 96 mg/dL (70-100) 11/17/17 09:00 POC Glucose 99 mg/dL (70-100) 11/17/17 09:05 Calcium 8.6 mg/dL (8.5-10.4) 11/17/17 09:00 Assessment & Plan Assessment: 82yo M with ESRD on HD MWF presents after HD catheter fell out while he was asleep last night. He is here for new dialysis access. Plan: #ESRD without dialysis access: TDC dislodged, missed HD today. RUE AV fistula created 09/2017 not yet mature. - Surgery replaced TDC today. Had some post-op bleeding that is now stabilized - Nephrology notified, plan for HD in AM #HTN: Difficult to get accurate readings - Started labetalol 100mg BID - UF with HD #Obstructive nephropathy: Has chronic garnica #Secondary hyperparathyroidism: Supposed to be on sensipar 3x weekly, will order #Anemia of renal disease: H/H at baseline #Dementia: Lives at home with . #H/o CVA: Continue statin. Diet: renal after procedure VTE ppx: SQH Code: Full. Per notes, there was attempt at palliative care discussion but patient declined DNR/DNI. Dispo: Admit under observation, plan to discharge tomorrow after TDC placement and HD.
--- NOTE | 2017-11-17 15:00 | POSTOPPROG ---
Post Op Note Date of Operation: 11/17/17 Surgeon: Jayme Oscar Anesthesiologist: samson Anesthesia: GET(General Endotracheal) Pre-op Diagnosis: Renal failure Post-op Diagnosis: Same Indication: Lost dialysis catheter Procedure: Right IJ tunneled catheter placement with fluoroscopic and ultrasound marimar Findings: Good position and flow Inf/Abcess present in the surg proc area at time of surgery?: No Depth: Deep Incisional (Fascial) EBL: Minimal Complications: None
--- NOTE | 2017-11-17 15:03 | POSTANESTH ---
Post Anesthetic Evaluation Cardiovascular Status: Normal, Stable, Similar to Pre-Op Cond Respiratory Status: Normal, Stable, Similar to Pre-op Cond. Level of Consciousness/Mental Status: Moderately Sleepy Pain Control: Adequate, Prn Tx Ordered Nausea/Vomiting Control: Adequate, Prn Tx Ordered Complications Possibly Related to Anesthesia: None Noted
--- NOTE | 2017-11-17 15:50 | GOP ---
DATE OF OPERATION: 11/17/2017 SURGEON: Jayme Oscar MD PREOPERATIVE DIAGNOSIS: Renal failure. POSTOPERATIVE DIAGNOSIS: Renal failure. PROCEDURE PERFORMED: Tunneled right internal jugular dialysis catheter with fluoroscopic and ultraso und guidance. FINDINGS: The patient has good position and flow of the catheter. DESCRIPTION OF PROCEDURE: The patient was taken to the operating room where he received a satisfacto ry general laryngeal mask anesthesia by Dr. Barreto, placed in supine position, prepped and draped in usual sterile fashion, and then placed in Trendelenburg. A single stick was made into the right internal jugular vein using ultrasound guidance. Guidewire wa s introduced and passed without difficulty into the right atrium. A separate incisions made anterior chest wall and a Palindrome catheter was tunneled from that site over the clavicle to the neck site. Wounds were infiltrated with 0.5% Marcaine. A series of dilators was passed over the guidewire und er fluoroscopic guidance, and then, the catheter was introduced through the introducer sheath and dil ator system into the right atrium. Good backflow was achieved. The catheter was flushed with hepari n saline and instilled with the appropriate amount of 5000 per unit heparin. It was secured to the e xit site with 4-0 Prolene sutures. The entrance site was closed with Prolene mattress suture. Wound s were dressed. He tolerated the procedure well. No complications. Blood loss negligible. Taken t o the recovery room in good condition. . /[id number]/MODL
[2017-11-17] MEDS ORDERED: THROMBIN (BOVINE) 5,000 UNIT VIAL TP ONE (16:33)
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
[2017-11-17] MEDS: LABETALOL HCL 100 MG TAB PO SCH ×2 (17:57→21:55)
[2017-11-17] MEDS: CINACALCET HCL 30 MG TAB PO SCH (17:57)
[2017-11-17] MEDS: HEPARIN 5,000 UNIT/0.5 ML INJ SC SCH ×3 (18:00→22:46)
--- NOTE | 2017-11-18 08:13 | SOAPPROG ---
SOAP Progress Note Assessment/Plan: Assessment/Plan: 82 Y M s/p replacement of tunneled HD neck catheter, POD#1. Catheter site clean and intact. Bleeding stopped. HD planned today at 1pm. Seen with Dr. Oscar. Patient without complaint. 11/18/17 08:12 Objective: Vital Signs Temp Pulse Resp BP Pulse Ox 36.6 C 70 16 177/79 H 970 H 11/18/17 07:55 11/18/17 07:55 11/18/17 04:00 11/18/17 07:55 11/18/17 07:55 Laboratory Results 11/18/17 04:52 11/17/17 11/18/17 11/19/17 05:59 05:59 05:59 Intake Total 300 Output Total 450 Balance -150 PT 12.8 SEC (12.0-15.0) 11/17/17 09:00 INR 0.94 (0.83-1.16) 11/17/17 09:00 ICD10 Worksheet Patient Problems: Problems Problem Status Onset Chronic renal failure Acute Encounter for dialysis catheter care Acute Closed fracture of pelvis Active bladder rupture Active Bacteremia Acute Bacteremia due to Klebsiella pneumoniae Acute Chest pain Acute Chronic kidney disease Acute Complication of AV dialysis fistula Acute Fever Acute Hemorrhage of arteriovenous fistula Acute Influenza A Acute Lumbar canal stenosis Acute Pyelonephritis Acute Renal failure (ARF), acute on chronic Acute Urinary tract infection Acute
[2017-11-18] MEDS: PRAVASTATIN SODIUM 20 MG TAB PO SCH (08:17)
[2017-11-18] MEDS: LABETALOL HCL 100 MG TAB PO SCH (08:17)
--- NOTE | 2017-11-18 08:40 | HOSPPROG ---
Hospitalist Progress Note Assessment/Plan: 82yo M with ESRD on HD MWF presents after HD catheter "fell out" while he was asleep. He is here for new dialysis access. #ESRD without dialysis access: RUE AV fistula created 09/2017 not yet mature. - TDC placed 11/[address] Oscar - Plan for HD today at 1pm #HTN: Difficult to get accurate readings - Started labetalol 100mg BID - UF with HD #Obstructive nephropathy: Has chronic garnica #Secondary hyperparathyroidism: Supposed to be on sensipar 3x weekly, ordered #Anemia of renal disease: H/H at baseline #Dementia: Lives at home with . #H/o CVA: Continue statin. Diet: renal VTE ppx: SQ Code: Full. Dispo: Likely discharge back to home today after HD session barring any complications. Subjective: Had a little nausea overnight, otherwise no new symptoms. Supposed to get HD today at 1pm. Objective: Vital Signs Temp Pulse Resp BP Pulse Ox 36.6 C 70 16 177/79 H 970 H 11/18/17 07:55 11/18/17 07:55 11/18/17 04:00 11/18/17 07:55 11/18/17 07:55 Laboratory Results 11/18/17 04:52 11/17/17 11/18/17 11/19/17 05:59 05:59 05:59 Intake Total 300 Output Total 450 Balance -150 PT 12.8 SEC (12.0-15.0) 11/17/17 09:00 INR 0.94 (0.83-1.16) 11/17/17 09:00 - Physical Exam Constitutional: no apparent distress, appears nourished, not in pain Eyes: PERRL, anicteric sclera, EOMI Ears, Nose, Mouth, Throat: moist mucous membranes, hearing normal, ears appear normal, no oral mucosal ulcers Cardiovascular: regular rate and rhythym, no murmur, rub, or gallop Respiratory: no respiratory distress, reduced air movement (at bilateral bases) , No expiratory wheeze, No rhonchi Gastrointestinal: normoactive bowel sounds, soft, non-tender abdomen, no palpable masses Genitourinary: garnica in urethra Skin: other (right subclavian tunneled catheter with gauze in place) Neurologic: other (alert, answering questions appropriately, not oriented) ICD10 Worksheet Patient Problems: Problems Problem Status Onset Chronic renal failure Acute Encounter for dialysis catheter care Acute Closed fracture of pelvis Active bladder rupture Active Bacteremia Acute Bacteremia due to Klebsiella pneumoniae Acute Chest pain Acute Chronic kidney disease Acute Complication of AV dialysis fistula Acute Fever Acute Hemorrhage of arteriovenous fistula Acute Influenza A Acute Lumbar canal stenosis Acute Pyelonephritis Acute Renal failure (ARF), acute on chronic Acute Urinary tract infection Acute
--- NOTE | 2017-11-18 10:35 | ASMTCMCOM ---
CM Note CM Note Notes: Pt is a 82 y/o man admitted for an HD catheter falling out. Pt will most likely d/c independent with supportive when medically stable. The plan is for pt to have TDC placement and HC before he discharges. CM available for changes. Plan: Independent Date Signed: 11/18/2017 10:33 AM Electronically Signed By:DONNA Solis
--- NOTE | 2017-11-18 12:37 | SOAPPROG ---
NIESHA Progress Note Assessment/Plan: Assessment/Plan: The patient is an 82 y/o M with PMH ESRD who presented with loss of TDC for dialysis access. ESRD on HD -HD today plan for d/c afterwards -has chair at [facility] tomorrow early am -have had palliative discussion in the past and patient wishes to be full code Access -s/p OR with TDC replacement, please ensure use of pan devulcanizer helper with explicit instructions and materials for care of catheter at home -unable to use R shane for 6-8 weeks per surgery HTN/vol -difficult to obtain as use cuff on ankle -labetolol started yesterday, may increase to 200mg po BID -will UF with HD today BMD -PTH>700 -started sensipar 3x weekly, discussed compliance with daughter Bill Obstructive nephropathy -chronic garnica -changed monthly, unclear when new one required (daughter to ask ) -follows with [facility] and home health Hyperkalemia -renal diet -monitor on telemetry -will modulate with HD 11/18/17 12:34 Subjective: Patient denies issues. Long discussion with daughter about concerns of dementia given poor catheter care and non-compliance with medications. Objective: Vital Signs Temp Pulse Resp BP Pulse Ox 36.6 C 70 16 177/79 H 970 H 11/18/17 07:55 11/18/17 07:55 11/18/17 04:00 11/18/17 07:55 11/18/17 07:55 Laboratory Results 11/18/17 04:52 11/17/17 11/18/17 11/19/17 05:59 05:59 05:59 Intake Total 300 360 Output Total 450 Balance -150 360 PT 12.8 SEC (12.0-15.0) 11/17/17 09:00 INR 0.94 (0.83-1.16) 11/17/17 09:00 Physical Exam - Physical Exam General Appearance: WD/WN, alert, no apparent distress, cachetic EENT: PERRL/EOMI Neck: non-tender, full range of motion, supple Respiratory: chest non-tender, lungs clear, normal breath sounds Cardiac/Chest: normal peripheral pulses, regular rate, rhythm Abdomen: normal bowel sounds, non-tender, soft Skin: normal color, warm/dry Extremities: normal range of motion, other (R TDC, R AVF shane good thrill and bruit) Neuro/Psych: normal mood/affect, disoriented to place, disoriented to time ICD10 Worksheet Patient Problems: Problems Problem Status Onset Chronic renal failure Acute Encounter for dialysis catheter care Acute Closed fracture of pelvis Active bladder rupture Active Bacteremia Acute Bacteremia due to Klebsiella pneumoniae Acute Chest pain Acute Chronic kidney disease Acute Complication of AV dialysis fistula Acute Fever Acute Hemorrhage of arteriovenous fistula Acute Influenza A Acute Lumbar canal stenosis Acute Pyelonephritis Acute Renal failure (ARF), acute on chronic Acute Urinary tract infection Acute
[2017-11-18] MEDS: HEPARIN 5,000 UNIT/0.5 ML INJ SC SCH (16:19)
[2017-11-18] MEDS ORDERED: SODIUM CITRATE 4% 4 ML in SYRINGE 0 ML DIAL ONE (21:30)
[2017-11-19] MEDS: LABETALOL HCL 100 MG TAB PO SCH ×2 (00:20→18:31)
[2017-11-19] MEDS: HEPARIN 5,000 UNIT/0.5 ML INJ SC SCH ×3 (00:20→18:31)
--- NOTE | 2017-11-19 08:03 | SOAPPROG ---
SOAP Progress Note Assessment/Plan: Assessment: ESRD, HD today Tunneled HD cath "fell out" replaced yesterday, Dialysis yesterday to make up missed HD Friday Deconditioned wants to press on with current level of care Plan: HD today, next HD on Friday hopefully home soon better catheter care 11/19/17 08:00 Subjective: minimal pain post op HD cath replacement no cp sob nausea or vomiting appetite OK, not great tired, didn't sleep well last night not wanting to answer my questions today Objective: Vital Signs Temp Pulse Resp BP Pulse Ox 37.2 C 72 14 106/52 L 95 11/19/17 07:21 11/19/17 07:21 11/19/17 07:21 11/19/17 07:21 11/19/17 07:21 Laboratory Results 11/19/17 04:50 11/18/17 11/19/17 11/20/17 05:59 05:59 05:59 Intake Total 300 1120 Output Total 450 50 Balance -150 1070 PT 12.8 SEC (12.0-15.0) 11/17/17 09:00 INR 0.94 (0.83-1.16) 11/17/17 09:00 Physical Exam - Physical Exam General Appearance: alert Neck: normal inspection Respiratory: No rhonchi, No wheezing Cardiac/Chest: edema (trace edema), systolic murmur, No friction rub Abdomen: normal bowel sounds, non-tender, soft Skin: warm/dry Neuro/Psych: alert, oriented x 3 ICD10 Worksheet Patient Problems: Problems Problem Status Onset Chronic renal failure Acute Encounter for dialysis catheter care Acute Closed fracture of pelvis Active bladder rupture Active Bacteremia Acute Bacteremia due to Klebsiella pneumoniae Acute Chest pain Acute Chronic kidney disease Acute Complication of AV dialysis fistula Acute Fever Acute Hemorrhage of arteriovenous fistula Acute Influenza A Acute Lumbar canal stenosis Acute Pyelonephritis Acute Renal failure (ARF), acute on chronic Acute Urinary tract infection Acute
--- NOTE | 2017-11-19 09:31 | PDMN ---
Medical Necessity Medical necessity: Change to IP, as of 11/18/17, per MD; los >2 mn for ongoing management s/p hemodialysis catheter replacement POD #1 & hypertension; requiring further monitoring & dialysis; comorbid advanced age, CVA, dementia, diabetes, ESRD on HD, obstructive nephropathy w/chronic garnica
[2017-11-19] MEDS: PRAVASTATIN SODIUM 20 MG TAB PO SCH (09:48)
[2017-11-19] MEDS: CINACALCET HCL 30 MG TAB PO SCH (09:48)
[2017-11-19] MEDS ORDERED: HEPARIN 50,000 UNIT/10 ML VIAL ONE (16:00)
--- NOTE | 2017-11-19 16:06 | HOSPPROG ---
Hospitalist Progress Note Assessment/Plan: 82yo M with ESRD on HD MWF presents after HD catheter "fell out" while he was asleep. He is here for new dialysis access. #ESRD without dialysis access: GALEE AV fistula created 09/2017 not yet mature. - TDC placed 11/[address] Oscar - HD 11/18 - Plan for HD again today, then discharge to home #HTN: Difficult to get accurate readings - Labetalol increased to 200mg BID - UF with HD #Obstructive nephropathy: Has chronic garnica, unclear when last changed. #Secondary hyperparathyroidism: Supposed to be on sensipar 3x weekly, ordered #Anemia of renal disease: H/H at baseline #Dementia: Lives at home with . Has had numerous issues with dialysis catheter. Renal team has attempted to incorporate palliative care but patient wanting aggressive care. #H/o CVA: Continue statin. Diet: renal VTE ppx: SQH Code: Full. Dispo: Discharge back to home today after HD session barring any complications. Subjective: Got HD late last night. No issues. Patient denies any new symptoms this AM. Not very talkative. Objective: Vital Signs Temp Pulse Resp BP Pulse Ox 36.9 C 79 16 129/73 H 97 11/19/17 12:00 11/19/17 12:00 11/19/17 12:00 11/19/17 12:07 11/19/17 12:00 Laboratory Results 11/19/17 04:50 11/18/17 11/19/17 11/20/17 05:59 05:59 05:59 Intake Total 400 Output Total 50 Balance 350 PT 12.8 SEC (12.0-15.0) 11/17/17 09:00 INR 0.94 (0.83-1.16) 11/17/17 09:00 - Physical Exam Constitutional: no apparent distress, appears nourished, not in pain Eyes: PERRL, anicteric sclera, EOMI Ears, Nose, Mouth, Throat: moist mucous membranes, hearing normal, ears appear normal, no oral mucosal ulcers Cardiovascular: regular rate and rhythym, no murmur, rub, or gallop Respiratory: no respiratory distress, no rales or rhonchi, clear to auscultation Gastrointestinal: normoactive bowel sounds, soft, non-tender abdomen, no palpable masses Skin: other (right chest TDC c/d/i) Neurologic: other (alert, not oriented, answers mainly in yes/no ) Psychiatric: encephalopathic ICD10 Worksheet Patient Problems: Problems Problem Status Onset Chronic renal failure Acute Encounter for dialysis catheter care Acute Closed fracture of pelvis Active bladder rupture Active Bacteremia Acute Bacteremia due to Klebsiella pneumoniae Acute Chest pain Acute Chronic kidney disease Acute Complication of AV dialysis fistula Acute Fever Acute Hemorrhage of arteriovenous fistula Acute Influenza A Acute Lumbar canal stenosis Acute Pyelonephritis Acute Renal failure (ARF), acute on chronic Acute Urinary tract infection Acute
--- NOTE | 2017-11-19 17:28 | PDDCSUM ---
Discharge Summary Discharge Summary: Date of Admission: 11/17/2017 Date of Discharge: 11/19/2017 Consultants: nephrology, general surgery Procedures: TDC placement Discharge Diagnoses: 1. Loss of dialysis access 2. ESRD on HD 3. Dementia 4. HTN 5. Hyperparathyroidism 6. Anemia 7. Obstructive nephropathy Brief Hospital Course: 82yo M with ESRD on HD MWF presents after HD catheter "fell out" while he was asleep. Dr Oscar placed a temporary dialysis catheter on 11/17 and he underwent HD on 11/18 and 11/19 with plan to resume normal routine this Friday. Of note, his LUE AV fistula malfunctioned earlier this summer requiring Dr Oscar to create RUE AV fistula but this hasn't yet matured. The patient has had difficulty with keeping dialysis access in setting of his dementia and there have been discussions in the outpatient setting re: discontinuing HD/pursuing hospice but patient and family have not wanted this. Lastly, this admission we added labetalol and cinacalcet to his medication regimen. Medications: Please refer to EMR for complete list. Changes this admission include addition of labetalol and cinacalcet. Follow Up Plan: 1. Continue routine HD starting Friday, 11/21 2. Continue discussions surrounding goals of care Physical Exam: Vitals reviewed, hypertensive but otherwise stable. Alert, not oriented. No focal neurologic deficit. RRR, lungs clear, abdomen soft. Campbell in place. Right chest TDC without signs of infection or hematoma. No LE edema or JVD.
[2017-11-19 18:32] VITALS: BP 103/58
== END 2017-11-19 19:45 | disposition home or self-care (01) | DRG 314 ==
LOC: F3E 11:10 → OBSVTOIN 11-18 19:53
PROVIDERS: ADMIT Internal Medicine; ATTEND Internal Medicine
PROC: 02HV33Z Insertion of Infusion Device into Superior Vena Cava, Percutaneous Approach (ICD-10-PCS; principal; 2017-11-17 13:00)
PROC: 5A1D70Z Performance of Urinary Filtration, Intermittent, Less than 6 Hours Per Day (ICD-10-PCS; 2017-11-18)
DX: T82.42XA Displacement of vascular dialysis catheter, initial encounter (principal); I12.0 Hypertensive chronic kidney disease with stage 5 chronic kidney disease or end stage renal disease; N18.6 End stage renal disease; N13.8 Other obstructive and reflux uropathy; F03.90 Unspecified dementia, unspecified severity, without behavioral disturbance, psychotic disturbance, mood disturbance, and anxiety; D64.9 Anemia, unspecified; E87.5 Hyperkalemia; E21.1 Secondary hyperparathyroidism, not elsewhere classified; Z86.73 Personal history of transient ischemic attack (TIA), and cerebral infarction without residual deficits
CPT/HCPCS: 82435-PO; 82565-PO; 82947-PO; 84132-PO; 84295-PO; 84520-PO; 85014-PO; 97166-GO; C1750; G0378; G8987-GO-CL; G8988-GO-CK; J0690; J1642; J1644; J2704; J3010; P9041

== ENCOUNTER 2017-11-26 17:44 | Inpatient (IN) | payer OTHER, MEDICAID ==
--- NOTE | 2017-11-26 18:09 | EDPHY ---
H & P Smoking Status: Never smoked Time Seen by Provider: 11/26/17 17:57 HPI/ROS: CHIEF COMPLAINT: Pulled dialysis port HISTORY OF PRESENT ILLNESS: Patient is a 82-year-old male with a history of end -stage renal disease and dementia here with his who reports that once again he has pulled his dialysis access. Patient has been seen multiple times by Dr. tiffanie Miranda who has replaced his dialysis port and catheters multiple times the patient seems to keep pulling them out as they irritate him. The reports he states that the ports itching and so he pulled on M1 there under is close. He has had fistula that was placed 6 weeks ago. I discuss use of this fistula with Dr. Miranda and he suggest waiting until 3 months for the fistula to mature. He completed dialysis this morning at 5:00 a.m.. His next dialysis is Friday had 5:00 a.m.. REVIEW OF SYSTEMS: Constitutional: No fever, no chills. Eyes: No discharge. ENT: No sore throat. Cardiovascular: No chest pain, no palpitations. Respiratory: No cough, no shortness of breath. Gastrointestinal: No abdominal pain, no vomiting. Genitourinary: No hematuria. Musculoskeletal: No back pain. Skin: No rashes. Neurological: No headache. (J Carlos Anderson) Physical Exam: General Appearance: Alert and no distress. Eyes: Pupils equal and round no injection. Respiratory: Chest is nontender, lungs are clear to auscultation. Cardiac: regular rate and rhythm. Gastrointestinal: Abdomen is soft and nontender, no masses, bowel sounds normal. Musculoskeletal: Neck is supple and nontender. Extremities have full range of motion and are nontender. Skin: No rashes or lesions. (J Carlos Anderson) Constitutional: Initial Vital Signs Temperature (C) 36.6 C 11/26/17 17:48 Heart Rate 74 11/26/17 17:48 Respiratory Rate 16 11/26/17 17:48 Blood Pressure 164/123 H 11/26/17 17:48 O2 Sat (%) 93 11/26/17 17:48 O2 Delivery Mode Room Air O2 (L/minute) 3 Allergies/Adverse Reactions: No Allergies [NKDA] Allergy (Verified 11/17/17 06:47) Home Medications: Medication Instructions Recorded Lovastatin 20 mg PO HS 11/17/17 Cinacalcet HCl [Sensipar (*)] 30 mg PO MWF #90 tab 11/19/17 Labetalol HCl [Trandate 200 mg (*)] 200 mg PO BID #60 tab 11/19/17 Aspirin EC [Aspirin EC 81 mg (*)] 81 mg PO DAILY 11/26/17 Medical Decision Making ED Course/Re-evaluation: Patient was admitted to hospitalist will take care of the patient until seen by Dr. Miranda tomorrow morning for replacement of dialysis access. He was hemodynamically stable in the emergency room with no gross electrolyte disturbance. (J Carlos Anderson) I have evaluated and participated in the management of this patient. My co- signature indicates that I have reviewed this chart and that I agree with the findings and the plan of care as documented. My personal history and physical findings include: Elderly male resting comfortably in the bed. Heart is regular rate rhythm. Lungs are clear. There is a suture, intact, in the right lateral neck. At the exit site of his port there is a dressing in place. Yellow bruising of the upper right thorax. No active bleeding. No tenderness or crepitus. Abdomen is soft and nontender. Right distal upper extremity with palpable thrill. The patient's tells me that after dialysis today, which he completed, he apparently pulled out his dialysis catheter which was tunneled in the right IJ. She brings the complete catheter with her. It is intact. The patient has dementia. He will be admitted to the hospitalist service. Dr. Jayme Oscar has been notified and will work on dialysis access tomorrow. (Suly Centeno) - Data Points Laboratory Results: Laboratory Results 11/27/17 04:58 11/27/17 04:58 Medications Given: Discontinued Medications Hydrocodone Bitart/Acetaminophen (Elkins 5/325) 1 - 2 tab PO Q4HRS PRN PRN Reason: Pain, Moderate Able to Take PO Stop: 12/06/17 19:24 Last Admin: 11/27/17 22:59 Dose: 2 tab Bupivacaine HCl (Sensorcaine 0.5% Vial) Confirm Administered Dose 30 ml .ROUTE .STK-MED ONE Stop: 11/27/17 13:11 Last Admin: 11/27/17 15:41 Dose: 30 ml Heparin Sodium (Porcine) (Heparin Sc Injection) 5,000 unit SC Q8HRS [facility] Stop: 05/26/18 05:59 Last Admin: 11/27/17 16:24 Dose: Not Given Heparin Sodium (Porcine) (Heparin Lock Flush) Confirm Administered Dose 2,500 unit IVP .STK-MED ONE Stop: 11/27/17 13:10 Last Admin: 11/27/17 15:42 Dose: 2,000 unit Heparin Sodium (Porcine) (Heparin Sodium) Confirm Administered Dose 50,000 unit .ROUTE .STK-MED ONE Stop: 11/27/17 13:11 Last Admin: 11/27/17 15:42 Dose: 15,000 unit Lactated Ringer's (Lr) 1,000 mls @ 0 mls/hr IV ONCE ONE PRN Reason: Per Protocol Stop: 11/27/17 08:00 Last Admin: 11/27/17 16:24 Dose: Not Given Sodium Chloride (Ns) 1,000 mls @ 0 mls/hr IV ONCE ONE PRN Reason: As Directed Stop: 11/27/17 11:10 Last Admin: 11/27/17 11:39 Dose: 500 mls Labetalol HCl (Trandate) 200 mg PO BID FAYE Stop: 05/25/18 21:59 Last Admin: 11/28/17 09:52 Dose: 200 mg Lidocaine HCl (Lidocaine Hcl 1%) Confirm Administered Dose 300 mg .ROUTE .STK- MED ONE Stop: 11/27/17 13:10 Last Admin: 11/27/17 15:43 Dose: Not Given Pravastatin Sodium (Pravachol) 20 mg PO HS [facility] Stop: 05/25/18 21:59 Last Admin: 11/27/17 22:55 Dose: 20 mg Sodium Bicarbonate (Sodium Bicarbonate) Confirm Administered Dose 50 meq .ROUTE .STK-MED ONE Stop: 11/27/17 13:10 Last Admin: 11/27/17 15:43 Dose: Not Given Sodium Polystyrene Sulfonate (Kayexalate) 30 gm PO ONCE ONE Stop: 11/26/17 21:47 Last Admin: 11/26/17 23:09 Dose: 30 gm Thrombin (Thrombin-Jmi) Confirm Administered Dose 5,000 unit TP .STK-MED ONE Stop: 11/27/17 15:08 Last Admin: 11/27/17 15:41 Dose: 5,000 unit Departure - Departure Disposition: [facility] Acute Clinical Impression: Problem with dialysis access Qualifiers: Encounter type: initial encounter Qualified Code(s): T82.898A - Other specified complication of vascular prosthetic devices, implants and grafts, initial encounter Condition: Good
[2017-11-26] MEDS ORDERED: ONDANSETRON 4 MG/2 ML VIAL IVP PRN (19:25)
[2017-11-26] MEDS ORDERED: ONDANSETRON DISINTEGRATING 4 MG TAB PO PRN (19:25)
[2017-11-26] MEDS ORDERED: HYDROCODONE/APAP 5/325 TAB PO PRN (19:25)
[2017-11-26] MEDS ORDERED: oxyCODONE IR 5 MG TAB PO PRN (19:25)
[2017-11-26] MEDS ORDERED: ACETAMINOPHEN 325 MG TAB PO PRN (19:25)
[2017-11-26] MEDS ORDERED: HYDROmorphONE/DILAUDID 1 MG/ML INJ IVP PRN (19:25)
[2017-11-26] MEDS ORDERED: hydrALAZINE 20 MG/ML VIAL IVP PRN (21:44)
[2017-11-26] MEDS ORDERED: SODIUM POLY SULF 15 GM/60 ML BOTTLE PO ONE (21:46)
--- NOTE | 2017-11-26 22:31 | GHP ---
DATE OF ADMISSION: 11/26/2017 CHIEF COMPLAINT: Pulled out dialysis catheter. HISTORY: This is an 82-year-old man with past medical history that includes end-stage renal disease as well as dementia, currently undergoing Friday, Friday, Friday hemodialysis, who presents from [facility] after pulling out his hemodialysis catheter. Patient does have a history of doing this in the [facility], presumably due to his dementia. He does have a fistula which is maturing but not yet ready to us e. History is limited by patient's underlying dementia. However, at the time of my evaluation, rustam ent has no significant complaints. It does appear as though he did complete dialysis today as schedu led. PAST MEDICAL HISTORY: Includes: 1. End-stage renal disease, on hemodialysis Friday, Friday, Friday. 2. Type 2 diabetes. 3. Hypertension. 4. CVA. 5. Dementia. 6. Anemia of chronic renal disease. 7. Chronic urinary retention secondary to urethral strictures. PAST SURGICAL HISTORY: Includes craniectomy, urethrotomy, abdominal surgery. FAMILY HISTORY: Reviewed and non-pertinent. SOCIAL HISTORY: Patient is a never smoker. He denies alcohol or drug use. He is and lives independently with his . REVIEW OF SYSTEMS: 10-point review of systems obtained, negative except as per HPI. HOME MEDICATIONS: Include: 1. Lovastatin. 2. Labetalol. 3. Cinacalcet. 4. Aspirin. ALLERGIES: No known drug allergies. PHYSICAL EXAMINATION: VITAL SIGNS: BP 186/86, heart rate 68, respiratory rate 20, O2 saturation is 99% on 3 L, temperature is 36.4. GENERAL APPEARANCE: This is a well-developed, well-nourished man. He is awake and alert. He is in no acute distress. EYES: Anicteric. HENT: Oropharynx clear. CA RDIOVASCULAR: Regular rate and rhythm. No MRG. PULMONARY: CTA bilaterally. Normal work of breath ing. ABDOMEN: Soft, nontender. Positive bowel sounds. EXTREMITIES: No clubbing, cyanosis, or roosevelt ma. SKIN: Warm, dry, well perfused. NEURO/PSYCH: Patient is oriented x1-2. He is appropriate. He is pleasant. CLINICAL DATA: Labs reviewed and notable for sodium of 137, potassium is 5.9, BUN of 31, creatinine 5.2, hematocrit of 35.5. ASSESSMENT AND PLAN: This is an 82-year-old man with past medical history that includes dementia and end-stage renal disease presenting after inadvertently pulling out his hemodialysis catheter. 1. Hemodialysis catheter dislodgement: Dr. Oscar has been consulted and plans to replace this in morning. Patient will be kept n.p.o. after midnight. His morning aspirin will be held. 2. End-stage renal disease: Patient is a Friday, Friday, Friday hemodialysis patient. His potas sium is slightly elevated today. He will be given Kayexalate and presume he will be able to maintain his usual Friday, Friday, Friday schedule. I did not formally consult Renal, although I did info rm them of his being here and stated that they would be formally consulted in the morning if it looks like patient will be staying more than 24 hours. 3. Dementia: This is relatively advanced, again leading to patient's difficulty with maintaining hi s catheter at home. 4. Anemia: This is chronic and at baseline secondary to chronic kidney disease. 5. Hypertension: Somewhat elevated this evening, and we will add p.r.n. hydralazine. In looking ba ck on prior admissions, he does seem to run frequently in the 160s to 180s systolic. We will resume his labetalol as well. 6. Disposition: Observation status. Expect patient will require less than 48-hour stay for evaluat ion and management of above. 7. Patient is new to my care. Old records reviewed, summarized as per HPI and past medical history. Care plan reviewed with ER physician including plans for overnight observation. /[id number]/MODL
[2017-11-26] MEDS: PRAVASTATIN SODIUM 20 MG TAB PO SCH (23:09)
[2017-11-26] MEDS: LABETALOL HCL 200 MG TAB PO SCH (23:09)
[2017-11-27 05:20] LABS: PLATELET COUNT 209 10^3/uL (150-400)
[2017-11-27] MEDS: HEPARIN 5,000 UNIT/0.5 ML INJ SC SCH ×2 (05:42→16:24)
[2017-11-27] MEDS ORDERED: LIDOCAINE 1% 2 ML INJ ID PRN (07:59)
[2017-11-27] MEDS ORDERED: LR 1,000 ML IV ONE (07:59)
[2017-11-27] MEDS ORDERED: ENOXAPARIN 40 MG/0.4 ML SYR SC SCH (09:00)
--- NOTE | 2017-11-27 09:56 | ASMTLACE ---
ZOILAE Comorbidities - select Answers: Cerebrovascular disease all that apply (CVA, TIA, aneurysms, vasc ular dementia) Dementia Diabetes (uncontrolled or controlled) Moderate or severe liver or renal disease Other Notes: HTN # of Emergency department Answers: 5-8 visits in the last 6 months Score: 14 Date Signed: 11/27/2017 09:55 AM Electronically Signed By:Jazmín Snyder
[2017-11-27] MEDS ORDERED: NS 1,000 ML IV ONE (11:09)
--- NOTE | 2017-11-27 12:20 | ASMTCMCOM ---
CM Note CM Note Notes: Pt is a 82 y/o man admitted after pulling out his dialysis catheter. Pt goes to dialysis F. Pt was recently here at [facility] from 11/18/17 to 11/19/17 for his dialysis catheter falling out. Pt has a supportive . Therapies have been ordered and awaiting recommendations. Needs are TBD at this time. CM to follow. Plan: TBD Date Signed: 11/27/2017 12:19 PM Electronically Signed By:DONNA Solis
[2017-11-27] MEDS ORDERED: NA BICARBONATE 50 MEQ/50 ML VIAL ONE (13:09)
[2017-11-27] MEDS ORDERED: LIDOCAINE 1% 300 MG/30 ML SDV ONE (13:09)
[2017-11-27] MEDS ORDERED: HEPARIN 50,000 UNIT/10 ML VIAL ONE ×2 (13:10→22:52)
[2017-11-27] MEDS ORDERED: BUPIVACAINE 0.5% 30 ML SDV ONE (13:10)
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
[2017-11-27] MEDS ORDERED: fentaNYL 100 MCG/2 ML INJ ONE (14:22)
[2017-11-27] MEDS ORDERED: PROPOFOL 200 MG/20 ML VIAL ONE (14:23)
[2017-11-27] MEDS ORDERED: THROMBIN (BOVINE) 5,000 UNIT VIAL TP ONE (15:07)
[2017-11-27] MEDS ORDERED: ONDANSETRON 4 MG/2 ML VIAL ONE (15:29)
[2017-11-27] MEDS ORDERED: NALOXONE HCL 0.4 MG/ML INJ IVP PRN (15:37)
[2017-11-27] MEDS ORDERED: ONDANSETRON 4 MG/2 ML VIAL IVP PRN (15:37)
[2017-11-27] MEDS ORDERED: fentaNYL 100 MCG/2 ML INJ IVP PRN (15:37)
--- NOTE | 2017-11-27 15:39 | POSTANESTH ---
Post Anesthetic Evaluation Cardiovascular Status: Similar to Pre-Op Cond Respiratory Status: Similar to Pre-op Cond. Level of Consciousness/Mental Status: Other, See Comment Pain Control: Adequate, Prn Tx Ordered Nausea/Vomiting Control: Adequate, Prn Tx Ordered Complications Possibly Related to Anesthesia: None Noted (Pt back to his normal state. Baseline confusion)
--- NOTE | 2017-11-27 15:50 | HOSPPROG ---
Hospitalist Progress Note Assessment/Plan: Assessment: 82 yo M p/w acute hyperkalemia in the setting of losing dialysis access from pulling out his HD catheter Plan: # Hyperkalemia. Acute, 2/2 ESRD, s/p kayex w/ subsequent K 5.1 -monitor on tele and repeat K level in AM -d/w Dr. Teague, he has reported to me that he has d/w nephrology and patient will receive HD tomorrow morning # ESRD. On MWF outpt HD, presented after he lost HD access from self-removing catheter -s/p replacement of catheter by Dr. Oscar today -further post-op w/u w/ CXR to eval catheter placement -HD in AM # Anemia of ESRD. Hgb stable 10.5, mild blood soak in bandage -will repeat Hgb in AM # DM2. Chronic, cont home Rx # Dementia. Advanced, reviewed outside records including my encounter w/ the patient 03/06 (DC summary by Dr. Noel) indicating fairly advanced dementia at that time w/ serious safety concerns, patient eventually discharged home under his 's care -encourage use of electro mechanical technologist, albeit it is unclear how much verbal understanding patient has at baseline -get PT/OT/Cog evals in AM to determine safest DC plan -patient self-removed his HD catheter b/c of his challenges retaining information from his dementia, welcome all recommendations from renal/surgery how to encourage patient not to manipulate catheter to maintain HD access Diet. NPO, adv to renal at 6 p.m. if able to remain awake and safely swallow PPx. High risk, SCDs for now, hep SC in AM if Hgb stable Code. Full Dispo. ADD uncertain, upgrade to inpatient admission status for reasonable medical necessity including hyperkalemia requiring HD w/ ESRD, advanced dementia resulting in significant patient safety concerns Subjective: patient resting comfortably Objective: Vital Signs Temp Pulse Resp BP Pulse Ox 36.7 C 66 12 115/58 L 94 11/27/17 11:14 11/27/17 14:16 11/27/17 14:16 11/27/17 14:16 11/27/17 14:16 - Physical Exam Constitutional: no apparent distress, not in pain, chronically ill appearing, No uncomfortable Cardiovascular: regular rate and rhythym, no murmur, rub, or gallop (distant heart sounds), No edema Respiratory: no respiratory distress (shallow breathing), no rales or rhonchi, clear to auscultation Gastrointestinal: normoactive bowel sounds, soft, non-tender abdomen, no palpable masses Skin: other (numerous cath scars on chest, mild blood soak superior edge of bandage, no erythema around bandage margins, no induration around scars) Psychiatric: not anxious, encephalopathic, flat affect, other (responds to some 1-step commands), No agitated ICD10 Worksheet Patient Problems: Problems Problem Status Onset Problem with dialysis access Acute Closed fracture of pelvis Active bladder rupture Active Bacteremia Acute Bacteremia due to Klebsiella pneumoniae Acute Chest pain Acute Chronic kidney disease Acute Chronic renal failure Acute Complication of AV dialysis fistula Acute Encounter for dialysis catheter care Acute Fever Acute Hemorrhage of arteriovenous fistula Acute Influenza A Acute Lumbar canal stenosis Acute Pyelonephritis Acute Renal failure (ARF), acute on chronic Acute Urinary tract infection Acute
--- NOTE | 2017-11-27 15:53 | POSTOPPROG ---
Post Op Note Date of Operation: 11/27/17 Surgeon: Jayme Oscar Anesthesiologist: vickie Anesthesia: GET(General Endotracheal) Pre-op Diagnosis: renal failure Post-op Diagnosis: same Indication: pulled out his palindrome Procedure: Left subclavian tunneled palindrome catheter with fluoroscopic and ultrasou Findings: Good position and flow Inf/Abcess present in the surg proc area at time of surgery?: No Depth: Deep Incisional (Fascial) EBL: Minimal Complications: None
[2017-11-27] MEDS: LABETALOL HCL 200 MG TAB PO SCH ×2 (16:24→22:55)
[2017-11-27] MEDS: PRAVASTATIN SODIUM 20 MG TAB PO SCH (22:55)
[2017-11-28] MEDS: LABETALOL HCL 200 MG TAB PO SCH (09:52)
--- NOTE | 2017-11-28 10:37 | SOAPPROG ---
NIESHA Progress Note Assessment/Plan: Assessment/Plan: ESRD: pt has received his HD for the day, next HD due on Friday. Pt ok to discharge from nephrology standpoint to get HD at outpatient unit on Friday. Hyperkalemia: modulated on HD. HTN: controlled on current meds. Anemia: pt gets epo and iron per outpatient dialysis unit protocol. RUKHSANA: phos 5.7, not on phos binder, will defer management to primary medical care administrator. Subjective: Mr. Eastman is an 82 yo M with ESRD on HD MWF at [facility]. Pt presented after again pulling out his catheter, which happened earlier this month as well. He was last dialyzed on Friday. He had tunneled catheter replaced yesterday. Pt received HD overnight with no issues. Objective: Vital Signs Temp Pulse Resp BP Pulse Ox 36.5 C 73 16 125/69 H 96 11/28/17 07:57 11/28/17 09:52 11/28/17 07:57 11/28/17 09:52 11/28/17 07:57 Laboratory Results 11/28/17 05:24 11/28/17 05:24 11/27/17 11/28/17 11/29/17 05:59 05:59 05:59 Intake Total 500 Output Total 120 Balance 380 General: alert, no acute distress Eyes: EOMI, PERRL OP: Clear CV: RRR Resp: nonlabored respirations on RA Abd: Soft, NT/ND Ext: no edema Neuro: CN II-XII Grossly intact, no asterixis Access: LIJ tunneled catheter ICD10 Worksheet Patient Problems: Problems Problem Status Onset Problem with dialysis access Acute Closed fracture of pelvis Active bladder rupture Active Bacteremia Acute Bacteremia due to Klebsiella pneumoniae Acute Chest pain Acute Chronic kidney disease Acute Chronic renal failure Acute Complication of AV dialysis fistula Acute Encounter for dialysis catheter care Acute Fever Acute Hemorrhage of arteriovenous fistula Acute Influenza A Acute Lumbar canal stenosis Acute Pyelonephritis Acute Renal failure (ARF), acute on chronic Acute Urinary tract infection Acute
--- NOTE | 2017-11-28 10:41 | HOSPPROG ---
Hospitalist Progress Note Assessment/Plan: Assessment: 82 yo M p/w acute hyperkalemia in the setting of losing dialysis access from pulling out his HD catheter Plan: Hyperkalemia. Acute, 2/2 ESRD, s/p kayex w/ subsequent K 5.1 monitor on tele and repeat K level in AM d/w Dr. Teague, he has reported to me that he has d/w nephrology and patient will receive HD tomorrow morning ESRD. On MWF outpt HD, presented after he lost HD access from self-removing catheter s/p replacement of catheter by Dr. Oscar HD overnight labs normalized Anemia of ESRD. Hgb stable 10.5, mild blood soak in bandage hg stable DM2. Chronic, cont home Rx Dementia. Advanced Code. Full Dispo. ADD uncertain, upgrade to inpatient admission status for reasonable medical necessity including hyperkalemia requiring HD w/ ESRD, advanced dementia resulting in significant patient safety concerns home today > 30 minutes on dc Subjective: s/p placement of tunneled HD catheter Objective: Vital Signs Temp Pulse Resp BP Pulse Ox 36.5 C 73 16 125/69 H 96 11/28/17 07:57 11/28/17 09:52 11/28/17 07:57 11/28/17 09:52 11/28/17 07:57 Laboratory Results 11/28/17 05:24 11/28/17 05:24 11/27/17 11/28/17 11/29/17 05:59 05:59 05:59 Intake Total 500 Output Total 120 Balance 380 - Physical Exam Constitutional: no apparent distress, appears nourished Eyes: PERRL, anicteric sclera Ears, Nose, Mouth, Throat: moist mucous membranes, hearing normal Cardiovascular: regular rate and rhythym, no murmur, rub, or gallop, other ( tunneled catheter clean/dry/intact) Respiratory: no respiratory distress, no rales or rhonchi Gastrointestinal: normoactive bowel sounds, soft, non-tender abdomen Genitourinary: no bladder fullness, No garnica in urethra Skin: warm, normal color Musculoskeletal: full muscle strength, no muscle tenderness Neurologic: AAOx3 ICD10 Worksheet Patient Problems: Problems Problem Status Onset Problem with dialysis access Acute Closed fracture of pelvis Active bladder rupture Active Bacteremia Acute Bacteremia due to Klebsiella pneumoniae Acute Chest pain Acute Chronic kidney disease Acute Chronic renal failure Acute Complication of AV dialysis fistula Acute Encounter for dialysis catheter care Acute Fever Acute Hemorrhage of arteriovenous fistula Acute Influenza A Acute Lumbar canal stenosis Acute Pyelonephritis Acute Renal failure (ARF), acute on chronic Acute Urinary tract infection Acute
--- NOTE | 2017-11-28 14:05 | GDS ---
DISCHARGE DIAGNOSES: 1. End-stage renal disease. 2. Inadvertent removal of hemodialysis catheter. 3. Type 2 diabetes, hypertension, cerebrovascular accident, significant dementia, history of chronic urinary retention, hyperkalemia. Please see admission history and physical by Dr. Sharifa Leger. The patient presented with inadver tent catheter removal. It sounds like this has happened once in the remote past and then once about 10 days ago. He has a maturing fistula, which is not ready to use. On the first hospital day, he un derwent line placement that was uncomplicated with Dr. Logan Oscar. Chest x-ray verified line plac ement. The patient underwent successful hemodialysis. He is discharged home today. The patient was discharged. Discharge was done with the activity director, and the had no questions. /[id number]/MODL
[2017-11-28 15:24] VITALS: BP 147/104
--- NOTE | 2017-11-28 16:39 | ASMTCMCOM ---
CM Note CM Note Notes: CM, RN, and MD spoke w/pt and his via [facility]; dc poc. declines the need for homecare, stating she is capable of taking care of him herself. She takes him with her when she goes out and takes him to dialysis. PT/OT recommend home care but still declines the need. DC Plan: Independent Date Signed: 11/28/2017 04:34 PM Electronically Signed By:Shreya Heredia RN
--- NOTE | 2017-11-28 16:51 | GOP ---
DATE OF OPERATION: 11/27/2017 SURGEON: Jayme Oscar MD PREOPERATIVE DIAGNOSIS: POSTOPERATIVE DIAGNOSIS: PROCEDURE PERFORMED: FINDINGS: DESCRIPTION OF PROCEDURE: ADDENDUM: The operative procedure should be changed from left subclavian tunneled Palindrome cathete r to left internal jugular tunneled Palindrome catheter. /[id number]/MODL
--- NOTE | 2017-11-28 17:42 | PDMN ---
Medical Necessity Medical necessity: Change to IP, as of 11/27/17, per MD; los >2 mn s/p replacement of HD catheter POD #0 w/hyperkalemia secondary to ESRD; requiring further cardiac monitoring, follow-up labs & HD; comorbid advanced dementia, diabetes, HTN, CVA, anemia, chronic urinary retention
--- NOTE | 2017-11-30 13:53 | GOP ---
DATE OF OPERATION: 11/27/2017 SURGEON: Jayme Oscar MD PREOPERATIVE DIAGNOSIS: Chronic renal failure and loss of dialysis catheter. POSTOPERATIVE DIAGNOSIS: Chronic renal failure and loss of dialysis catheter. PROCEDURE PERFORMED: Left internal jugular Palindrome tunneled catheter placement with fluoroscopic and ultrasound guidance. FINDINGS: Patient was found to have good position and good flow of the catheter. DESCRIPTION OF PROCEDURE: Mylene was taken to the operating room where he received a satisfactory e ndotracheal anesthesia by Dr. Hauser. He was placed in supine position, prepped and draped in usual s terile fashion. Using ultrasound guidance, a single stick was made into the left internal jugular vein. A guidewire was introduced. Position was confirmed with fluoroscopy. Palindrome catheter was then brought in th rough a separate stab incision on the anterior chest wall and tunneled up to the intro site in the ne ck. It was then introduced into the right atrium via the introducer sheath and dilator system with p rogressive dilator placements. Good backflow was achieved. The catheter was flushed with heparin sa line. Good position was confirmed with fluoroscopy. He tolerated the procedure well, was taken to the recovery room in good condition. There were no com plications. Blood loss negligible. The catheter was secured in multiple places with 3-0 Prolene sut ures and covered with a bulky dressing and OpSite. /[id number]/MODL
== END 2017-11-28 19:14 | disposition home or self-care (01) | DRG 314 ==
LOC: INTOOBSV 19:00 → F3E 19:46 → OBSVTOIN 11-27 14:57
PROVIDERS: ADMIT Internal Medicine; ATTEND Internal Medicine
PROC: 02H633Z Insertion of Infusion Device into Right Atrium, Percutaneous Approach (ICD-10-PCS; 2017-11-27)
PROC: 5A1D70Z Performance of Urinary Filtration, Intermittent, Less than 6 Hours Per Day (ICD-10-PCS; principal; 2017-11-27 12:30)
DX: T82.42XA Displacement of vascular dialysis catheter, initial encounter (principal); I12.0 Hypertensive chronic kidney disease with stage 5 chronic kidney disease or end stage renal disease; N18.6 End stage renal disease; E87.5 Hyperkalemia; F03.90 Unspecified dementia, unspecified severity, without behavioral disturbance, psychotic disturbance, mood disturbance, and anxiety; Z99.2 Dependence on renal dialysis; E11.9 Type 2 diabetes mellitus without complications; D63.1 Anemia in chronic kidney disease; R33.8 Other retention of urine; N35.919 Unspecified urethral stricture, male, unspecified site
CPT/HCPCS: 92523-GN; 97162-GP; 97165-GO; 97535-GO; C1750; G0378; G8978-GP-CK; G8979-GP-CI; G8987-GO-CJ; G8988-GO-CI; G9168-GN-CM; G9169-GN-CM; J1642; J1644; J2405; J2704; J3010

== ENCOUNTER 2017-12-03 10:46 | Emergency (ER) | payer OTHER, MEDICAID ==
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
--- NOTE | 2017-12-03 11:17 | CPEKG ---
Test Reason : OPEN Blood Pressure : / mmHG Vent. Rate : 060 BPM Atrial Rate : 060 BPM P-R Int : 173 ms QRS Dur : 083 ms QT Int : 415 ms P-R-T Axes : 031 001 013 degrees QTc Int : 415 ms Sinus rhythm Confirmed by Tyra Lanza ([id number]) on 12/03/2017 11:17:14 AM Referred By: Confirmed By:Tyar Lanza
[2017-12-03 11:19] LABS: PLATELET COUNT 232 10^3/uL (150-400)
[2017-12-03 12:21] VITALS: BP 132/52
== END 2017-12-03 12:40 | disposition home or self-care (01) ==
LOC: EDUNIT#
DX: R55 Syncope and collapse (principal); Y84.1 Kidney dialysis as the cause of abnormal reaction of the patient, or of later complication, without mention of misadventure at the time of the procedure; F03.90 Unspecified dementia, unspecified severity, without behavioral disturbance, psychotic disturbance, mood disturbance, and anxiety; I13.11 Hypertensive heart and chronic kidney disease without heart failure, with stage 5 chronic kidney disease, or end stage renal disease; N18.6 End stage renal disease; E11.9 Type 2 diabetes mellitus without complications; Z99.2 Dependence on renal dialysis; Z79.4 Long term (current) use of insulin
CPT/HCPCS: 84484-PO

== ENCOUNTER 2018-01-03 19:02 | Inpatient (IN) | payer OTHER, MEDICAID ==
[2018-01-03] MEDS ORDERED: ACETAMINOPHEN 325 MG TAB PO PRN (19:59)
[2018-01-03] MEDS ORDERED: ONDANSETRON DISINTEGRATING 4 MG TAB PO PRN (19:59)
[2018-01-03] MEDS ORDERED: HYDROCODONE/APAP 5/325 TAB PO PRN (19:59)
[2018-01-03] MEDS ORDERED: oxyCODONE IR 5 MG TAB PO PRN (19:59)
[2018-01-03] MEDS ORDERED: ONDANSETRON 4 MG/2 ML VIAL IVP PRN (19:59)
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
--- NOTE | 2018-01-03 21:40 | PDGENHP ---
History and Physical - Chief Complaint accidentally lost HD access - History of Present Illness Patient is an 82 yo M with PMH of ESRD on MWF HD who presents after inadvertently dislodging his HD catheter. This is the 4th time this has happened. Per patients , he will sometimes be cleaning himself and forget what it is on him and begin to tug at it until he accidentally dislodges it, which is what happened this time as well. He did undergo HD on Friday as usual. He has no other complaints. History Information - Allergies/Home Medication List Allergies/Adverse Reactions: No Allergies [NKDA] Allergy (Verified 01/03/18 19:10) Home Medications: Lovastatin 20 mg PO HS 11/17/17 [Last Taken 11/25/17] Aspirin EC [Aspirin EC 81 mg (*)] 81 mg PO DAILY 11/26/17 [Last Taken 11/26/17] I have personally reviewed and updated: family history, medical history, social history, surgical history - Past Medical History CVA, dementia, diabetes type 2, ESRD, hypertension Additional medical history: ESRD on HD MWF, type 2 diabetes, HTN, CVA, dementia , anemia of renal disease, urinary retention 2/2 urethral strictures - Surgical History Additional surgical history: craniectomy, urethrotomy, abdominal surgery, fistula formation - Family History Positive for: non-pertinent Additional family history: no pertinent family history - Social History Smoking Status: Never smoked Alcohol Use: None Drug Use: None Additional social history: , lives with , 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 Review of Systems Review of Systems: ROS: 10pt was reviewed & negative except for what was stated in HPI & below Physical Exam Physical Exam: Temp Pulse Resp BP Pulse Ox 36.8 C 70 16 188/101 H 94 01/03/18 20:08 01/03/18 20:08 01/03/18 20:08 01/03/18 20:08 01/03/18 20:08 Constitutional: no apparent distress, appears nourished Eyes: PERRL, anicteric sclera Ears, Nose, Mouth, Throat: moist mucous membranes, hearing normal Cardiovascular: regular rate and rhythym, no murmur, rub, or gallop, No edema Respiratory: no respiratory distress, no rales or rhonchi Gastrointestinal: normoactive bowel sounds, soft, non-tender abdomen Genitourinary: no bladder tenderness Skin: warm, normal color Musculoskeletal: full muscle strength Neurologic: CN II-XII Intact, No AAOx3 Psychiatric: poor memory Assessment & Plan Assessment: Encounter for dialysis catheter care (Acute) 82 yo M with hx of ESRD presenting after accidentally dislodging his HD cath # dialysis catheter lost: this is the 4th time patient presents for the same issue, his surgeon Dr. Oscar is aware and would like to keep patient in hospital overnight for catheter to be replaced in am. Fistula has been created and should be ready to use in the next couple of weeks. # ESRD: patient has been compliant with MWF HD, last HD yesterday, will likely be ready to dc tomorrow and can follow up as per routine on friday # DM2: will continue home medications # HTN: will continue home meds # hx of dementia: contributing to his presenting issue, lives with independently # hx of CVA # observation status Patient new to my care. Old records reviewed and summarized as above. Care plan reviewed with ER doctor, further hx obtained from patients /daughter present at bedside.
[2018-01-04 09:09] LABS: PLATELET COUNT 254 10^3/uL (150-400)
--- NOTE | 2018-01-04 09:35 | ASMTCMCOM ---
CM Note CM Note Notes: 82yo male admitted for Dialysis port displacement. He has a Hx of CVA, Dementia, DM-2, HTN, ESRD- MWF HD, HTN. Lives with his and daughter in [place]. He is Czech speaking. May not have discharge needs.. Date Signed: 01/04/2018 09:34 AM Electronically Signed By:Natasha Mills LCSW
--- NOTE | 2018-01-04 10:31 | HOSPPROG ---
Hospitalist Progress Note Assessment/Plan: Pt seen by me today with translater Patient new to my care. 82 yo M with hx of ESRD presenting after accidentally dislodging his HD cath DIAGNOSES: # dialysis catheter hold most of the way out, no sign of complications of that * Will need new catheter; Dr. Oscar has patient on schedule for surgery Friday 7:30 a.m., NPO after midnight * Has access in right arm which is to immature to use at this time # ESRD: patient has been compliant with MWF HD, last HD Friday * Due to surgery here tomorrow for new catheter placement, he will need to dialyze here tomorrow before discharge, will need to be inpatient # DM2: will continue home medications and follow closely # HTN: will continue home meds # hx of dementia: contributing to his presenting issue, lives with independently # hx of CVA # changed inpatient status as he will need to stay overnight again, OR not available for him for today Also waiting to trying get his home medicines reconciled which has not been done by pharmacy at SUBJECTIVE: pt very comfortable no pain, nausea, sob or fever sxs nurses have noted no bleeding from his dialysis cath site OBJECTIVE Vitals reviewed: stable no fever Neurosurgical Physician Assistant, my review: Exam: alert oriented relaxed, poor memory otherwise good mentation dialysis cath at L upper chest is unchanged with most of the catheter external to skin, secured in place, no bleed or bruise, no crepitus skin warm dry color ok resps not labored lungs clear BSs heart regular abd soft nondistended nontender, bowel sounds present limbs fistula on his arm is very immature, not usable for dialysis; otherwise warm, no edema iv site ok lab data: Creat 9.3 but K and CO2 ok anemic near his baseline with Hg 9+ Objective: Vital Signs Temp Pulse Resp BP Pulse Ox 36.8 C 67 18 142/79 H 93 01/04/18 07:47 01/04/18 07:47 01/04/18 07:47 01/04/18 07:47 01/04/18 07:47 Laboratory Results 01/04/18 08:50 01/04/18 08:50 01/03/18 01/04/18 01/05/18 06:59 06:59 06:59 Intake Total 360 Output Total 110 Balance 250 ICD10 Worksheet Patient Problems: Problems Problem Status Onset Encounter for dialysis catheter care Acute Closed fracture of pelvis Active bladder rupture Active Bacteremia Acute Bacteremia due to Klebsiella pneumoniae Acute Chest pain Acute Chronic kidney disease Acute Chronic renal failure Acute Complication of AV dialysis fistula Acute Fever Acute Hemorrhage of arteriovenous fistula Acute Influenza A Acute Lumbar canal stenosis Acute Problem with dialysis access Acute Pyelonephritis Acute Renal failure (ARF), acute on chronic Acute Urinary tract infection Acute
--- NOTE | 2018-01-04 10:37 | SOAPPROG ---
NIESHA Progress Note Assessment/Plan: Assessment: 82 y/o M w/ ESRD on HD MWF at [facility] presents with recurrent episode of inadvertently pulling out TDC 1. ESRD - -Plan for HD tomorrow -Pt has R RC AVF, has been used once x 1 needle on Friday, then had to convert to TDC; so not yet mature enough and TDC will need to be replaced -Dr. Oscar plans to replace TDC most likely tomorrow AM, but possibly today 2. CKD-MBD - -Cont outpt regimen with Sensipar 30mg MWF -Cont Sevelamer 1600mg TIDAC -ESRD diet 3. Anemia -At ESRD goal Plan: 01/04/18 10:34 01/04/18 10:39 Subjective: 82 y/o M w/ ESRD on HD MWF at [facility] ([facility]), presents with recurrent episode of inadvertently pulling out TDC. reports he pulled this out last night. He completed dialysis Friday and has been compliant with outpt HD treatments. Objective: Vital Signs Temp Pulse Resp BP Pulse Ox 36.8 C 67 18 142/79 H 93 01/04/18 07:47 01/04/18 07:47 01/04/18 07:47 01/04/18 07:47 01/04/18 07:47 Laboratory Results 01/04/18 08:50 01/04/18 08:50 01/03/18 01/04/18 01/05/18 05:59 05:59 05:59 Intake Total 360 Output Total 110 Balance 250 Physical Exam - Physical Exam General Appearance: WD/WN, no apparent distress Respiratory: lungs clear Cardiac/Chest: regular rate, rhythm Abdomen: non-tender, soft Extremities: other (R RC AVF +moderate bruit/thrill), No swelling ICD10 Worksheet Patient Problems: Problems Problem Status Onset Encounter for dialysis catheter care Acute Closed fracture of pelvis Active bladder rupture Active Bacteremia Acute Bacteremia due to Klebsiella pneumoniae Acute Chest pain Acute Chronic kidney disease Acute Chronic renal failure Acute Complication of AV dialysis fistula Acute Fever Acute Hemorrhage of arteriovenous fistula Acute Influenza A Acute Lumbar canal stenosis Acute Problem with dialysis access Acute Pyelonephritis Acute Renal failure (ARF), acute on chronic Acute Urinary tract infection Acute
--- NOTE | 2018-01-04 10:48 | SOAPPROG ---
SOAP Progress Note Assessment/Plan: Assessment: 82 y/o M with ESRD, pulled out neck catheter for the fourth time last night. Will need replacement. Has AVF, but still a little too early to use. Will plan for surgery tomorrow am to replace tunneled neck cath. S: No complaints. O: Alert Afebrile Neck wound clean RRR No increased WOB RUE: AVF with good thrill 01/04/18 10:46 Objective: Vital Signs Temp Pulse Resp BP Pulse Ox 36.8 C 67 18 142/79 H 93 01/04/18 07:47 01/04/18 07:47 01/04/18 07:47 01/04/18 07:47 01/04/18 07:47 Laboratory Results 01/04/18 08:50 01/04/18 08:50 01/03/18 01/04/18 01/05/18 05:59 05:59 05:59 Intake Total 360 Output Total 110 Balance 250 ICD10 Worksheet Patient Problems: Problems Problem Status Onset Encounter for dialysis catheter care Acute Closed fracture of pelvis Active bladder rupture Active Bacteremia Acute Bacteremia due to Klebsiella pneumoniae Acute Chest pain Acute Chronic kidney disease Acute Chronic renal failure Acute Complication of AV dialysis fistula Acute Fever Acute Hemorrhage of arteriovenous fistula Acute Influenza A Acute Lumbar canal stenosis Acute Problem with dialysis access Acute Pyelonephritis Acute Renal failure (ARF), acute on chronic Acute Urinary tract infection Acute
--- NOTE | 2018-01-04 15:04 | PDMN ---
Medical Necessity Medical necessity: [facility] M325 CRF: 82 yo present w/ dislodged hemodialysis catheter. 4th time this has happened. Initially OBS but will need another MN stay for ongoing monitoring, repeat labs and gen surg procedure for vascular access replacement in am as HD due tomorrow. Additional data: Creat 9.3. Urine cx pending. Hx ERSD on dialysis, CVA, dementia, DM, HTN, anemia, urinary retention w/ strictures, craniectomy, urethrotomy, abdominal surg, fistula formation. Change to IP status 01/04/18 @1434 per MD order
[2018-01-04 20:01] LABS: PLATELET COUNT 264 10^3/uL (150-400)
[2018-01-04] MEDS: PRAVASTATIN SODIUM 20 MG TAB PO SCH (21:30)
[2018-01-05] MEDS ORDERED: NS 500 ML IV SCH (06:45)
[2018-01-05] MEDS ORDERED: LIDOCAINE 1% 300 MG/30 ML SDV ONE (06:55)
[2018-01-05] MEDS ORDERED: NA BICARBONATE 50 MEQ/50 ML VIAL ONE (06:55)
[2018-01-05] MEDS ORDERED: HEPARIN 50,000 UNIT/10 ML VIAL ONE ×2 (06:56→19:43)
[2018-01-05] MEDS ORDERED: HEPARIN 10,000 UNIT/10 ML MDV (1,000 UNIT/ML) ONE (06:56)
[2018-01-05] MEDS ORDERED: ceFAZolin 2 GM/DEXTROSE 100 ML IV ONE (07:00)
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
[2018-01-05] MEDS ORDERED: BUPIVACAINE 0.5% 30 ML SDV ONE (07:14)
[2018-01-05] MEDS ORDERED: PROPOFOL 200 MG/20 ML VIAL ONE (07:15)
[2018-01-05] MEDS ORDERED: fentaNYL 100 MCG/2 ML INJ ONE (07:19)
[2018-01-05] MEDS ORDERED: ONDANSETRON 4 MG/2 ML VIAL IVP PRN (08:03)
[2018-01-05] MEDS ORDERED: PROMETHAZINE HCL 25 MG/ML INJ IVP PRN (08:03)
[2018-01-05] MEDS ORDERED: ALBUTEROL 3 ML DEYVIAL IH PRN (08:03)
[2018-01-05] MEDS ORDERED: DEXAMETHASONE 4 MG/ML VIAL IVP PRN (08:03)
[2018-01-05] MEDS ORDERED: NALOXONE HCL 0.4 MG/ML INJ IVP PRN (08:03)
[2018-01-05] MEDS ORDERED: fentaNYL 100 MCG/2 ML INJ IVP PRN (08:03)
[2018-01-05] MEDS ORDERED: METOCLOPRAMIDE 10 MG/2 ML VIAL IVP PRN (08:03)
[2018-01-05] MEDS ORDERED: LABETALOL HCL 5 MG/ML 20 ML MDV IVP PRN (08:03)
[2018-01-05] MEDS ORDERED: MEPERIDINE 25 MG/0.5 ML AMP IVP PRN (08:03)
[2018-01-05] MEDS ORDERED: ACETAMINOPHEN 500 MG TAB PO PRN (08:03)
--- NOTE | 2018-01-05 08:23 | SOAPPROG ---
NIESHA Progress Note Assessment/Plan: Assessment: 82 y/o M w/ ESRD on HD MWF at [facility], presents with recurrent episode of inadvertently pulling out TDC 1. ESRD - -Plan for HD today -Pt has R RC AVF, has been used once x 1 needle on Friday, then had to convert to TDC; so not yet mature enough -Dr. Oscar plans to replace TDC today (appreciate it) 2. CKD-MBD - -Cont outpt regimen with Sensipar 30mg MWF -Cont Sevelamer 1600mg TIDAC -ESRD diet when taking po 3. Anemia -At ESRD goal ,continue Epo with outpt HD unit 4. met acidosis -will improve with HD today Ca Warren MD [facility] pager [phone] 01/05/18 10:24 Subjective: Had new RIJ TDC placed this am, tolerated well. at bedside and I used disabilities services officer in person to speak with them. Feels ok, hoping to go home soon. Wants to eat breakfast. Objective: Vital Signs Temp Pulse Resp BP Pulse Ox 36.4 C 60 20 171/90 H 93 01/05/18 06:33 01/05/18 07:10 01/05/18 07:10 01/05/18 07:10 01/05/18 07:10 Laboratory Results 01/04/18 19:37 01/05/18 04:31 01/04/18 01/05/18 01/06/18 05:59 05:59 05:59 Intake Total 1000 Output Total 850 Balance 150 Physical Exam - Physical Exam General Appearance: alert, no apparent distress EENT: other (mmm) Neck: other (RIJ TDC in place) Respiratory: lungs clear Cardiac/Chest: regular rate, rhythm, other (no rub) Abdomen: normal bowel sounds, non-tender, soft Skin: warm/dry Extremities: other (RUE AVF +thrill/bruit, some bruising) Neuro/Psych: alert, other (follows commands, defers to for questions) ICD10 Worksheet Patient Problems: Problems Problem Status Onset Encounter for dialysis catheter care Acute Closed fracture of pelvis Active bladder rupture Active Bacteremia Acute Bacteremia due to Klebsiella pneumoniae Acute Chest pain Acute Chronic kidney disease Acute Chronic renal failure Acute Complication of AV dialysis fistula Acute Fever Acute Hemorrhage of arteriovenous fistula Acute Influenza A Acute Lumbar canal stenosis Acute Problem with dialysis access Acute Pyelonephritis Acute Renal failure (ARF), acute on chronic Acute Urinary tract infection Acute
--- NOTE | 2018-01-05 08:47 | POSTANESTH ---
Post Anesthetic Evaluation Respiratory Status: Normal, Stable Level of Consciousness/Mental Status: Can Participate in Eval Pain Control: Adequate, Prn Tx Ordered Nausea/Vomiting Control: Adequate, Prn Tx Ordered Complications Possibly Related to Anesthesia: None Noted
--- NOTE | 2018-01-05 08:59 | POSTOPPROG ---
Post Op Note Date of Operation: 01/05/18 Surgeon: Jayme Oscar Anesthesiologist: marilu Anesthesia: GET(General Endotracheal) Pre-op Diagnosis: renal failure Post-op Diagnosis: same Indication: pulled out dialysis cath Procedure: rt ij palindrome cath Findings: good flow Inf/Abcess present in the surg proc area at time of surgery?: Yes Depth: Deep Incisional (Fascial) EBL: Minimal Complications: none
--- NOTE | 2018-01-05 09:09 | SOAPPROG ---
SOAP Progress Note Assessment/Plan: Assessment: surgical risks and options fully discussed and he wishes to proceed Plan:rt ij palindrome tunnelled cath today 01/05/18 09:07 Objective: Vital Signs Temp Pulse Resp BP Pulse Ox 36.5 C 60 12 175/94 H 99 01/05/18 08:45 01/05/18 07:10 01/05/18 09:01 01/05/18 09:01 01/05/18 09:01 Laboratory Results 01/04/18 19:37 01/05/18 04:31 01/04/18 01/05/18 01/06/18 05:59 05:59 05:59 Intake Total 1000 100 Output Total 850 5 Balance 150 95 ICD10 Worksheet Patient Problems: Problems Problem Status Onset Closed fracture of pelvis Active bladder rupture Active Fever Acute Bacteremia Acute Bacteremia due to Klebsiella pneumoniae Acute Lumbar canal stenosis Acute Urinary tract infection Acute Renal failure (ARF), acute on chronic Acute Influenza A Acute Pyelonephritis Acute Hemorrhage of arteriovenous fistula Acute Chronic kidney disease Acute Complication of AV dialysis fistula Acute Chest pain Acute Chronic renal failure Acute Encounter for dialysis catheter care Acute Problem with dialysis access Acute
[2018-01-05] MEDS: ASPIRIN EC 81 MG TAB PO SCH (10:51)
--- NOTE | 2018-01-05 11:47 | GOP ---
DATE OF OPERATION: 01/05/2018 SURGEON: Jayme Oscar MD PREOPERATIVE DIAGNOSIS: Chronic renal failure and dislodged dialysis catheter. POSTOPERATIVE DIAGNOSIS: Chronic renal failure and dislodged dialysis catheter. PROCEDURE PERFORMED: Right internal jugular ultrasound-guided and fluoroscopic-guided tunneled palin dromic catheter placement. FINDINGS: The patient found to have good position and flow. DESCRIPTION OF PROCEDURE: Patient taken to the operating room where he received a satisfactory gener al laryngeal mask anesthesia by Dr. Bruno. He was placed in Trendelenburg after being prepped and drap ed in usual sterile fashion. Using ultrasound guidance, a direct stick was made in the jugular vein. A guidewire was introduced. A palindrome catheter was brought in from a separate stab incision on the anterior chest wall and tunneled in a curvilinear motion into the insertion site. A series of di lators were then passed over the guidewire under fluoroscopic guidance, and the catheter was introduc ed into the right atrium. Good backflow was achieved. The catheter was flushed with heparin saline and then instilled with the appropriate amount of 5000 units/cc heparin and secured to the exit site with 3-0 Prolene sutures. The entrance site was closed with 3-0 Prolene mattress sutures. There wer e no complications. He tolerated the procedure well and was taken to the recovery room in good condi tion. /[id number]/MODL
[2018-01-05] MEDS ORDERED: CINACALCET HCL 30 MG TAB PO SCH (12:24)
--- NOTE | 2018-01-05 13:28 | HOSPPROG ---
Hospitalist Progress Note Assessment/Plan: Patient new to my care. Chart reviewed. D/W RN/CM/ 82 yo M with hx of ESRD presenting after accidentally dislodging his HD cath DIAGNOSES: # dialysis catheter pulled most of the way out, no sign of complications of that * new catheter placed, per Dr. Oscar * Has access in right arm which is to immature to use at this time # ESRD: patient has been compliant with MWF HD, last HD Friday * Due to surgery here tomorrow for new catheter placement, he will need to dialyze here tomorrow before discharge, will need to be inpatient # DM2: will continue home medications and follow closely # HTN: will continue home meds # hx of dementia: contributing to his presenting issue, lives with independently # hx of CVA # Dispo likely home in am with family Subjective: No pain. Tired. Objective: Vital Signs Temp Pulse Resp BP Pulse Ox 36.8 C 66 16 144/60 H 96 01/05/18 13:00 01/05/18 13:00 01/05/18 13:00 01/05/18 13:00 01/05/18 13:00 Laboratory Results 01/04/18 19:37 01/05/18 04:31 01/04/18 01/05/18 01/06/18 05:59 05:59 05:59 Intake Total 1000 100 Output Total 850 355 Balance 150 -255 - Physical Exam Constitutional: appears nourished, not in pain, chronically ill appearing Eyes: PERRL, anicteric sclera, EOMI Ears, Nose, Mouth, Throat: moist mucous membranes, hearing normal, ears appear normal Cardiovascular: No JVD, No tachycardia, No edema Respiratory: no respiratory distress, no rales or rhonchi, reduced air movement Gastrointestinal: tenderness, No ascites, No distension Skin: warm, normal color, No mottled Musculoskeletal: normal joint ROM, no joint effusions, generalized weakness Neurologic: No AAOx3 Psychiatric: not anxious, poor insight, poor judgement, poor memory ICD10 Worksheet Patient Problems: Problems Problem Status Onset Closed fracture of pelvis Active bladder rupture Active Fever Acute Bacteremia Acute Bacteremia due to Klebsiella pneumoniae Acute Lumbar canal stenosis Acute Urinary tract infection Acute Renal failure (ARF), acute on chronic Acute Influenza A Acute Pyelonephritis Acute Hemorrhage of arteriovenous fistula Acute Chronic kidney disease Acute Complication of AV dialysis fistula Acute Chest pain Acute Chronic renal failure Acute Encounter for dialysis catheter care Acute Problem with dialysis access Acute
[2018-01-05] MEDS: PRAVASTATIN SODIUM 20 MG TAB PO SCH (22:19)
[2018-01-06] MEDS: ASPIRIN EC 81 MG TAB PO SCH (09:32)
--- NOTE | 2018-01-06 13:35 | HOSPPROG ---
Hospitalist Progress Note Assessment/Plan: 82 yo M with hx of ESRD presenting after accidentally dislodging his HD cath. First encounter, chart reviewed. # dialysis catheter dislodgement * new catheter placed, per Dr. Oscar * Has access in right arm which is to immature to use at this time # ESRD: patient has been compliant with MWF HD, last HD Friday * Due to surgery here tomorrow for new catheter placement, he will need to dialyze here tomorrow before discharge, will need to be inpatient # DM2: will continue home medications # HTN: will continue home meds # hx of dementia: contributing to his presenting issue, lives with independently # hx of CVA #pyuria, cx grew out klebsiella oxytoca * started on Levaquin QOD per nephrology, will continue for 3 more doses #plan: dc home w f/u with Dr Oscar Subjective: Eric feels well, wants to go home Objective: Vital Signs Temp Pulse Resp BP Pulse Ox 37.4 C 68 14 128/68 H 94 01/06/18 07:54 01/06/18 07:54 01/06/18 07:54 01/06/18 07:54 01/06/18 07:54 Laboratory Results 01/04/18 19:37 01/05/18 04:31 01/05/18 01/06/18 01/07/18 05:59 05:59 05:59 Intake Total 1000 100 Output Total 850 605 Balance 150 -505 - Physical Exam Constitutional: not in pain, chronically ill appearing Eyes: PERRL Ears, Nose, Mouth, Throat: hearing normal Cardiovascular: regular rate and rhythym Respiratory: no respiratory distress Genitourinary: garnica in urethra Skin: other (loud bruit noted over fistula) Musculoskeletal: generalized weakness Neurologic: AAOx3 Psychiatric: interacting appropriately, poor memory ICD10 Worksheet Patient Problems: Problems Problem Status Onset Encounter for dialysis catheter care Acute Closed fracture of pelvis Active bladder rupture Active Bacteremia Acute Bacteremia due to Klebsiella pneumoniae Acute Chest pain Acute Chronic kidney disease Acute Chronic renal failure Acute Complication of AV dialysis fistula Acute Fever Acute Hemorrhage of arteriovenous fistula Acute Influenza A Acute Lumbar canal stenosis Acute Problem with dialysis access Acute Pyelonephritis Acute Renal failure (ARF), acute on chronic Acute Urinary tract infection Acute
[2018-01-06 13:56] VITALS: BP 129/75
--- NOTE | 2018-01-06 19:22 | GDS ---
DISCHARGE DIAGNOSES: 1. Dialysis catheter dislodgement. 2. End-stage renal disease. 3. Diabetes type 2. 4. Hypertension. 5. History of dementia. 6. History of cerebrovascular accident. 7. Pyuria. His urine culture grew out Klebsiella oxytoca. CONSULTATIONS: 1. Dr. Jayme Oscar. 2. Brian Goldberg. HISTORY: Briefly, the patient is an 82-year-old male with a past medical history of end-stage renal disease, on Friday/Friday/Friday hemodialysis. He presented to the emergency room after inadvertently dislodging his hemodialysis catheter. This is the fourth time this has happened. Per his , he at times will be cleaning himself and forget what is on him and begin to tug on it until he accidentally dislodges it, which happened. He was seen and evaluated by Dr. Oscar, and on 01/05/2018, he had a right internal jugular ultrasound-guided tunneled palindromic catheter placed so he could get dialysis. He tolerated this well. He is doing well today. He will be discharged home and have dialysis planned for tomorrow. HOSPITAL COURSE: 1. Dialysis catheter dislodgement. He has a new catheter placed by Dr. Oscar. He has access in his right arm, which is too immature to use at this time. 2. End-stage renal disease. He will get dialysis tomorrow. 3. Diabetes type 2. Home medications resumed. 4. Hypertension. Blood pressure is stable. 5. History of dementia. I suspect this is what is going on is that he forgets he has a catheter and pulls it out. He lives with his independently. 6. History of cerebrovascular accident. This is also contributing to his confusion. 7. Pyuria. His urine culture grew out Klebsiella oxytoca. I reviewed his care with Nephrology. They have put him on Levaquin every other day. He needs 3 more doses. DISCHARGE CONDITION: Stable. Blood pressure is 129/75. Heart rate is 70, respiratory rate 14, O2 sats on room air 96%, temperature 36.8 Celsius. DISCHARGE MEDICATIONS: Please see the EMR. DISCHARGE INSTRUCTIONS: 1. To follow up with Dr. Jayme Oscar in the next 1-2 weeks. 2. To follow up with his PA. 3. His Levaquin has been sent down to the [facility] pharmacy to get filled prior to discharge. 4. Greater than 30 minutes discharging and coordinating his care. /[id number]/MODL DANIELLAD
--- NOTE | 2018-01-07 10:04 | ASMTLACE ---
LACE Length of stay for Answers: 3 days current admission Acuity / Level of Answers: Yes Care: Did the patient have an inpatient admission? Comorbidities - select Answers: Cerebrovascular disease all that apply (CVA, TIA, aneurysms, vasc ular dementia) Dementia Diabetes (uncontrolled or controlled) Moderate or severe liver or renal disease Other Notes: HTN, Urinary retention # of Emergency department Answers: 5-8 visits in the last 6 months Score: 20 Date Signed: 01/07/2018 10:03 AM Electronically Signed By:FATMATA Oneill
--- NOTE | 2018-01-07 10:05 | ASMTCMCOM ---
CM Note CM Note Notes: Pt medically stable for d/c with family support, no CM d/c needs identified. Date Signed: 01/07/2018 10:04 AM Electronically Signed By:FATMATA Oneill
== END 2018-01-06 17:04 | disposition home or self-care (01) | DRG 314 ==
LOC: INTOOBSV 19:40 → F2N 20:50 → OBSVTOIN 01-04 14:34 → F3N 01-04 18:06
PROVIDERS: ADMIT Internal Medicine; ATTEND Internal Medicine
DX: T82.42XA Displacement of vascular dialysis catheter, initial encounter (principal); I12.0 Hypertensive chronic kidney disease with stage 5 chronic kidney disease or end stage renal disease; N18.6 End stage renal disease; N39.0 Urinary tract infection, site not specified; F03.90 Unspecified dementia, unspecified severity, without behavioral disturbance, psychotic disturbance, mood disturbance, and anxiety; E11.9 Type 2 diabetes mellitus without complications; Z99.2 Dependence on renal dialysis; Z86.73 Personal history of transient ischemic attack (TIA), and cerebral infarction without residual deficits; B96.1 Klebsiella pneumoniae [K. pneumoniae] as the cause of diseases classified elsewhere
CPT/HCPCS: 97116-GP; 97161-GP; 97166-GO; 97530-GO; C1750; G0378; G8978-GP-CK; G8979-GP-CJ; G8987-GO-CK; G8988-GO-CK; J0690; J1642; J1644; J2704; J3010

== ENCOUNTER → 2018-02-05 | Day surgery (SDC) | payer OTHER, MEDICAID ==
[~2018-02-05] MED LIST changes: +ALTEPLASE 2 MG VIAL IVP PRN; +GLUCAGON HCL 1 MG VIAL IVP PRN; +HEPARIN 10,000 UNIT/10 ML MDV (1,000 UNIT/ML) IVP PRN; +IOPAMIDOL (ISOVUE-300) 100 ML BTL ONE; +MEPERIDINE 25 MG/ML SYR IVP PRN; +NALOXONE HCL 0.4 MG/ML INJ IVP PRN; +NS 1,000 ML IV SCH; +PROTAMINE SULFATE 50 MG/5 ML VIAL IVP PRN; +fentaNYL 100 MCG/2 ML INJ IVP PRN; +fentaNYL 100 MCG/2 ML INJ ONE; -levOFLOXACIN 500 MG/DEXTROSE 100 ML IV ONE
[2018-02-05 11:49] VITALS: BP 108/54
== END | disposition home or self-care (01) ==
LOC: FIMAGING 11:03
PROVIDERS: ATTEND Internal Medicine
PROC: B31H1ZZ Fluoroscopy of Right Upper Extremity Arteries using Low Osmolar Contrast (ICD-10-PCS; principal; 2018-02-05)
PROC: 05793ZZ Dilation of Right Brachial Vein, Percutaneous Approach (ICD-10-PCS; principal; 2018-02-05)
PROC: B546ZZA Ultrasonography of Right Subclavian Vein, Guidance (ICD-10-PCS; principal; 2018-02-05)
PROC: 057D3ZZ Dilation of Right Cephalic Vein, Percutaneous Approach (ICD-10-PCS; principal; 2018-02-05)
DX: T82.858A Stenosis of other vascular prosthetic devices, implants and grafts, initial encounter (principal)
CPT/HCPCS: 36902; 76937; C1758; C1769; C1894; C1725; J1644; J3010; Q9967

== ENCOUNTER 2018-02-24 07:40 | Day surgery (SDC) | payer OTHER, MEDICAID ==
--- NOTE | 2018-02-20 14:01 | GHP ---
DATE OF ADMISSION: 02/24/2018 CHIEF COMPLAINT: Collateral vessels near right upper extremity AV fistula. HISTORY OF PRESENT ILLNESS: This is an 82-year-old male with a history of chronic renal failure, who underwent left upper extremity AVF creation on 12/23/2016, which subsequently became thrombosed. He most recently underwent a right radiocephalic AV fistula creation on 10/09/2017. He is currently on dialysis and has been using a neck catheter. He was sent to our office from the dialysis center for surgical evaluation of collateral vessels coming from his AVF. The patient denies fever, chills, an d pain. PAST MEDICAL HISTORY: End-stage renal disease, urethral stricture, urinary retention, recurrent urin stephon tract infections. PAST SURGICAL HISTORY: Craniotomy, urethrotomy, abdominal surgery, AV fistula creation. MEDICATIONS: Acetaminophen 325 mg as needed for pain, Aldactone 25 mg, Flomax 0.4 mg, Humalog KwikPe n 100 units/mL, lactulose as needed, lovastatin 40 mg, MiraLAX as needed, Webster 5/325 mg tablets as n eeded for pain, Norvasc 10 mg, Senokot. ALLERGIES: No known drug allergies. FAMILY MEDICAL HISTORY: Noncontributory. SOCIAL HISTORY: This patient is a nonsmoker and does not drink alcohol or use recreational drugs. REVIEW OF SYSTEMS: A 10-point review of systems is negative, aside from what is documented in the HP I. PHYSICAL EXAMINATION: GENERAL: Chronically ill-appearing male in a wheelchair in the exam room, in no acute distress. HEENT: Normocephalic, atraumatic. Pupils are equal and round. No scleral icter us. Mucous membranes are moist. No gross hearing deficits. CARDIOVASCULAR: Regular rate and rhyth m. No clicks, murmurs, or rubs. RESPIRATORY: Clear to auscultation bilaterally. No increased work of breathing. ABDOMEN: Soft, nontender, nondistended. : Deferred. SKIN: Warm and dry. No ja undice. NEUROLOGIC: Alert, oriented to self. PSYCHIATRIC: Appropriate mood and affect. IMPRESSION AND PLAN: This is an 82-year-old male with a history of chronic renal disease, who most r ecently had an arteriovenous fistula placed in his right upper extremity. His fistula has matured ap propriately. However, he does have collateral vessels that need to be ligated prior to use for dialy sis. We will plan to ligate these vessels in the operating room. Discussed all risks and options. The patient wishes to proceed. /[id number]/MODL
[~2018-02-24 07:40] MED LIST changes: -ALTEPLASE 2 MG VIAL IVP PRN; +BUPIVACAINE 0.5% 30 ML SDV ONE; -GLUCAGON HCL 1 MG VIAL IVP PRN; -HEPARIN 10,000 UNIT/10 ML MDV (1,000 UNIT/ML) IVP PRN; -IOPAMIDOL (ISOVUE-300) 100 ML BTL ONE; -MEPERIDINE 25 MG/ML SYR IVP PRN; -NALOXONE HCL 0.4 MG/ML INJ IVP PRN; -NS 1,000 ML IV SCH; -PROTAMINE SULFATE 50 MG/5 ML VIAL IVP PRN; -fentaNYL 100 MCG/2 ML INJ IVP PRN; -fentaNYL 100 MCG/2 ML INJ ONE
[2018-02-24] MEDS ORDERED: ceFAZolin 2 GM/DEXTROSE 100 ML IV ONE (07:53)
[2018-02-24] MEDS ORDERED: LR 1,000 ML IV ONE (07:53)
[2018-02-24] MEDS ORDERED: LIDOCAINE 1% 2 ML INJ ID PRN (07:53)
[2018-02-24] MEDS ORDERED: NS 1,000 ML IV SCH (08:00)
--- NOTE | 2018-02-24 08:00 | PDHPUP ---
History & Physical Update H&P update statement: This history and physical update is based on an assessment of the patient which was completed after admission or registration (within 24 hours), but prior to the surgery/procedure. H&P update: H&P reviewed & patient examined, no change in patient's condition since H&P completed
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
[2018-02-24] MEDS ORDERED: PROPOFOL/EMULSION 500 MG/50 ML BOTTLE IV ONE (08:31)
[2018-02-24] MEDS ORDERED: ONDANSETRON 4 MG/2 ML VIAL ONE (08:34)
[2018-02-24] MEDS ORDERED: LIDOCAINE 2% 5 ML SDV ONE (08:34)
[2018-02-24] MEDS ORDERED: fentaNYL 100 MCG/2 ML INJ ONE (08:38)
[2018-02-24] MEDS ORDERED: HEPARIN 50,000 UNIT/10 ML VIAL DIAL ONE (10:00)
[2018-02-24] MEDS ORDERED: ONDANSETRON 4 MG/2 ML VIAL IVP PRN (11:03)
[2018-02-24] MEDS ORDERED: NALOXONE HCL 0.4 MG/ML INJ IVP PRN (11:03)
[2018-02-24] MEDS ORDERED: HYDROCODONE/APAP 5/325 TAB PO PRN (11:03)
[2018-02-24] MEDS ORDERED: fentaNYL 100 MCG/2 ML INJ IVP PRN (11:03)
--- NOTE | 2018-02-24 11:04 | POSTANESTH ---
Post Anesthetic Evaluation Cardiovascular Status: Normal, Stable Respiratory Status: Normal, Stable Level of Consciousness/Mental Status: Can Participate in Eval, Mildly Sleepy, Arousable Pain Control: Adequate, Prn Tx Ordered Nausea/Vomiting Control: Adequate, Prn Tx Ordered Complications Possibly Related to Anesthesia: None Noted
[2018-02-24 12:38] VITALS: BP 97/59
--- NOTE | 2018-02-25 11:22 | GOP ---
DATE OF OPERATION: 02/24/2018 SURGEON: Jayme Oscar MD WELL TREATMENT OFFSIDER: Elana Olsen PA-C. ANESTHESIOLOGIST: Brad Vazquez DO. PREOPERATIVE DIAGNOSIS: Chronic renal failure with arteriovenous fistula with multiple collaterals. POSTOPERATIVE DIAGNOSIS: Chronic renal failure with arteriovenous fistula with multiple collaterals. PROCEDURE PERFORMED: Ultrasound vein mapping right arm and AV fistula revision with ligation of collaterals. FINDINGS: 3 SMALL COLLATERAL VEINS WITH A WHITE OPEN MAIN CEPHALIC VEIN CHANNEL ESTIMATED BLOOD LOSS: Negligible. DESCRIPTION OF PROCEDURE: The patient was taken to the operating room where he received satisfactory general mask anesthesia by Dr. Vazquez. He was placed in the supine position with his right arm outstretched on an arm board, prepped and draped in the usual sterile fashion. Ultrasound was used to map the AV fistula and several tributary collaterals were marked. These areas were infiltrated with 0.5% Marcaine. Short vertical incisions were made. Dissection carried down to the collateral veins coming off the main AV fistula. These were all ligated with 2-0 silk ties. Wounds were infiltrated with 0.5% Marcaine and closed with 4-0 Monocryl subcuticular sutures. He tolerated the procedure well. Fistula remained strong with good flow and ultrasound revealed successful interruption of the collaterals. He was taken to the recovery room in good condition. No complications. /[id number]/MODL MTDD
== END 2018-02-24 12:34 | disposition home or self-care (01) ==
LOC: FSGY 07:40
PROVIDERS: ATTEND Surgery
PROC: B54MZZA Ultrasonography of Right Upper Extremity Veins, Guidance (ICD-10-PCS; principal; 2018-02-24 08:00)
PROC: 05LY0ZZ Occlusion of Upper Vein, Open Approach (ICD-10-PCS; principal; 2018-02-24 08:00)
DX: T82.898A Other specified complication of vascular prosthetic devices, implants and grafts, initial encounter (principal); N18.6 End stage renal disease; Z99.2 Dependence on renal dialysis; Z87.440 Personal history of urinary (tract) infections
CPT/HCPCS: J0690; J1642; J1644; J2405; J2704; J3010

== ENCOUNTER 2018-03-19 10:55 | Emergency (ER) | payer OTHER, MEDICAID ==
[2018-03-19 11:28] VITALS: BP 123/82
== END 2018-03-19 13:24 | disposition left against medical advice (07) ==
DX: Z53.21 Procedure and treatment not carried out due to patient leaving prior to being seen by health care provider (principal)

== ENCOUNTER 2018-03-19 19:44 | Emergency (ER) | payer OTHER, MEDICAID ==
--- NOTE | 2018-03-19 20:45 | EDPHY ---
General Time Seen by Provider: 03/19/18 20:14 Narrative: CLINICAL IMPRESSION: Left hand, 4th digit, PIP joint dislocation ASSESSMENT/PLAN: 82-year-old [place]an-speaking only male presents to the emergency department with acute left 4th finger pain after he dropped a pill on the floor earlier today and fell to his hand from a sitting position. Clinically and on x-rays, patient has a dislocated left 4th PIP joint. Distal neurovascular exam is intact. Patient received a digital block and joint was successfully reduced with return of full range of motion and improved pain. He was placed in an aluminum finger splint, rice treatment discussed, primary care follow-up encouraged, warning signs return to ED sooner outlined and discharge. DIFFERENTIAL DX: Differential includes but not limited to acute fracture, strain/sprain, joint dislocation, soft tissue contusion ED PROCEDURES: Procedure: Splint placement. A aluminum finger splint was applied to by switch technician, supervised by myself. After application of the splint I returned and re-examined the patient. The splint was adequately immobilizing the joint and distal to the splint the patient's circulation and sensation was intact. Procedure: Dislocation reduction. The dislocation of the left 4th finger PIP joint was reduced using traction counter traction technique without complications. Post reduction the patient's neurovascular exam is normal. Post reduction exam and range of motion demonstrates reduction of the joint to the anatomic position. Neurovascular exam remains intact The procedure was performed by myself. CHIEF COMPLAINT: Left 4th finger pain HPI: 82-year-old [place]-speaking only male presents to the emergency department with left 4th finger pain. Patient reports he dropped a pill on the ground earlier today, reached over to get it from a sitting position and fell to the left hand. His reports the finger is "crooked". She has been trying to massage back into place. Patient reports no numbness or loss of sensation to the finger. He is right-hand dominant. machine crater used to obtain history and explained exam findings PAST MEDICAL HISTORY: See nurse triage note Pertinent Past Surgical History: See nurse triage note Social History: , here with his family REVIEW OF SYSTEMS: All other systems negative Constitutional: No fever, no chills Musculoskeletal: No deformity, + joint pain Skin: No rashes, color change or open wounds. Neurological: No sensory loss or weakness. PHYSICAL EXAM: General Appearance: Alert, oriented, appropriate for age, cooperative, NAD, well hydrated, non-toxic appearing, VSS, no hypoxia. Neurological: [ Alert and oriented x 3, normal sensation, distal 2 point discrimination of left 4th finger intact Skin: Warm, dry, no rashes, no nodules on palpation. Musculoskeletal: Obvious deformity to left 4th PIP joint consistent with dislocation. No open wounds. The IP and MCP joints without pain or compromise range of motion. MEDICAL DECISION MAKING: Patient was seen independently. Secondary supervising physician at time of evaluation was Dr. Hartley . Diagnosis: Dislocated left 4th PIP joint. New, requires workup Summary: See assessment and plan for summary of ED visit Independent visualization of images, tracing, or specimens yes. Decision to obtain medical records or history from someone other than the patient: Patient's Review / Summarize previous medical records: None available Discussed patient with another provider: machine crater Patient Progress: Improved. - Diagnostics Imaging Results: Imaging Impressions Hand X-Ray 03/19/18 19:59 Impression: Fourth PIP joint dislocation. - History Smoking Status: Never smoked - Objective Vital Signs: Initial Vital Signs Temperature (C) 36.4 C 03/19/18 19:53 Heart Rate 70 03/19/18 19:53 Respiratory Rate 16 03/19/18 19:53 Blood Pressure 187/110 H 03/19/18 19:53 O2 Sat (%) 96 03/19/18 19:53 O2 Delivery Mode Room Air Allergies/Adverse Reactions: No Allergies [NKDA] Allergy (Verified 03/19/18 11:28) Home Medications: Medication Instructions Recorded Aspirin EC [Aspirin EC 81 mg (*)] 81 mg PO DAILY 01/04/18 Cinacalcet HCl [Sensipar (*)] 30 mg PO MOWEFR 01/04/18 Lovastatin 20 mg PO BID 01/04/18 Hydrocodone/APAP 5/325 [Hardwick 1 - 2 tab PO Q6H PRN #20 tab 02/24/18 5/325 (*)] Labetalol HCl 02/24/18 Multivitamin 02/24/18 Tums Ultra 02/24/18 Departure - Departure Disposition: Home, Routine, Self-Care Clinical Impression: Finger dislocation Qualifiers: Encounter type: initial encounter Qualified Code(s): S63.259A - Unspecified dislocation of unspecified finger, initial encounter Condition: Good Instructions: Finger Dislocation (ED) Additional Instructions: DISCHARGE INSTRUCTIONS FROM YOUR DOCTOR Thank you for visiting our emergency department today. Please keep in mind that discharge from the emergency department does not mean that there is nothing wrong - it simply means that we have not identified an emergency condition that requires further evaluation or treatment in the hospital. You should always plan to follow up with primary care for re-evaluation of your condition in the next 2-3 days. If you have been referred to a specialist, please call as soon as possible (today or tomorrow) to schedule your follow up appointment at the appropriate time. YOU DISLOCATED YOUR FINGER. THIS WAS REDUCED IN THE EMERGENCY DEPARTMENT. USE THE ALUMINUM FINGER SPLINT FOR COMFORT. FOLLOW UP WITH PRIMARY CARE. RETURN TO THE EMERGENCY DEPARTMENT FOR PERSISTENT OR WORSENING FINGER PAIN, INABILITY TO BEND THE FINGER, LOSS OF SENSATION TO THE FINGER OR HAND, FEVER OR ANY OTHER CONCERN. People present with illnesses and injuries in different ways, and it is always possible that we have missed something. You may always return for re-evaluation if symptoms worsen or if they are not improving or if you develop new/different symptoms. Again, thank you for choosing our emergency department. We hope that you feel better. INSTRUCCIONES DE DESCARGA DE ORELLANA MDICO Kai por visitar nuestro departamento de emergencias hoy. Tenga en cuenta que el lopez del departamento de emergencias no significa que no haya nada keenan, simplemente significa que no hemos identificado destinee condicin de emergencia que requiera destinee evaluacin o tratamiento adicional en el hospital. Siempre debe planificar un seguimiento con atencin primaria para la reevaluacin de orellana condicin en los prximos 2 a 3 salmon. Si farley sido referido a un especialista, llame lo antes posible (hoy o maana) para programar orellana gerardo de seguimiento en el momento adecuado. DESHABILITADO ORELLANA DEDO. ESTO FUE REDUCIDO EN EL DEPARTAMENTO DE EMERGENCIA. UTILICE LA HUELLA DE ALUMINIO PARA ORELLANA COMODIDAD. SEGUIR CON ATENCIN PRIMARIA. VUELVA AL DEPARTAMENTO DE EMERGENCIA PARA EL DOLOR DEL DEDO PERSISTENTE O QUE AUMENTA, INCAPACIDAD DE DOBLAR EL DEDO, PRDIDA DE SENSACIN AL DEDO O DE LA MANO, FIEBRE O CUALQUIER OTRO PREGUNTO. Las personas se presentan con enfermedades y lesiones de diferentes maneras, y siempre es posible que nos hayamos perdido algo. Siempre puede regresar para destinee nueva evaluacin si los sntomas empeoran o si no mejoran o si presenta s ntomas nuevos o diferentes. Nuevamente, kai por elegir nuestro departamento de emergencias. Esperamos que te Referrals: NONE *PRIMARY CARE P,. [Primary Care Provider] - As per Instructions [facility],. [Clinic] - As per Instructions
[2018-03-19 21:02] VITALS: BP 161/82
== END 2018-03-19 21:02 | disposition home or self-care (01) ==
PROC: 0RSXXZZ Reposition Left Finger Phalangeal Joint, External Approach (ICD-10-PCS; principal; 2018-03-19)
DX: S63.285A Dislocation of proximal interphalangeal joint of left ring finger, initial encounter (principal); W19.XXXA Unspecified fall, initial encounter; Y92.9 Unspecified place or not applicable; Y99.9 Unspecified external cause status; Y93.9 Activity, unspecified
CPT/HCPCS: 26770; 73130; 99283; L3925

== ENCOUNTER → 2018-04-22 | Day surgery (SDC) | payer OTHER, MEDICAID | LOC: FIMAGING 10:59 ==

== ENCOUNTER 2018-04-28 09:36 | Day surgery (SDC) | payer OTHER, MEDICAID ==
[2018-04-28] MEDS ORDERED: NALOXONE HCL 0.4 MG/ML INJ IVP PRN ×2 (10:33→11:57)
[2018-04-28] MEDS ORDERED: fentaNYL 100 MCG/2 ML INJ IVP PRN ×2 (10:33→11:57)
[2018-04-28] MEDS ORDERED: PROTAMINE SULFATE 50 MG/5 ML VIAL IVP PRN (10:33)
[2018-04-28] MEDS ORDERED: ALTEPLASE 2 MG VIAL IVP PRN (10:33)
[2018-04-28] MEDS ORDERED: GLUCAGON HCL 1 MG VIAL IVP PRN (10:33)
[2018-04-28] MEDS ORDERED: FLUMAZENIL 0.5 MG/5 ML MDV IVP PRN ×2 (10:33→11:57)
[2018-04-28] MEDS ORDERED: MIDAZOLAM 2 MG/2 ML VIAL IVP PRN ×2 (10:33→11:57)
[2018-04-28] MEDS ORDERED: HEPARIN 10,000 UNIT/10 ML MDV (1,000 UNIT/ML) IVP PRN (10:33)
[2018-04-28] MEDS ORDERED: NS 1,000 ML IV SCH ×2 (10:45→12:00)
--- NOTE | 2018-04-28 11:23 | PDRADPRE ---
Radiology History & Physical Indication for procedure: renal failure (ESRD: RUE wrist AVF evaluate for stensois with possible angioplasty/stent placement. Exchange right tunneled HD catheter.) Home medications: Aspirin EC [Aspirin EC 81 mg (*)] 81 mg PO DAILY 01/04/18 [Last Taken 02/23/18] Lovastatin 20 mg PO BID 01/04/18 [Last Taken 02/23/18] Labetalol HCl 02/24/18 [Last Taken 02/23/18] Multivitamin 1 tab PO DAILY 02/24/18 [Last Taken 02/23/18] Tums Ultra 1 tab PO AC 02/24/18 [Last Taken 02/23/18] Allergies/Adverse Reactions: No Allergies [NKDA] Allergy (Verified 04/16/18 14:02) Mental status: A&Ox3 Heart exam: regular rate and rhythm Lungs exam: clear to auscultation Mallampati Score: Class 2
[2018-04-28 12:05] LABS: PLATELET COUNT 229 10^3/uL (150-400)
[2018-04-28 12:13] LABS: INR 1.06 (0.83-1.16); PROTIME(PATIENT) 13.4 SEC (12.0-15.0)
[2018-04-28] MEDS ORDERED: IOPAMIDOL (ISOVUE-300) 100 ML BTL ONE (13:04)
[2018-04-28] MEDS ORDERED: HEPARIN 50,000 UNIT/10 ML VIAL ONE (13:22)
[2018-04-28] MEDS ORDERED: HEPARIN 10,000 UNIT/10 ML MDV (1,000 UNIT/ML) ONE (13:51)
[2018-04-28] MEDS ORDERED: ONDANSETRON 4 MG/2 ML VIAL IVP PRN (14:00)
[2018-04-28] MEDS ORDERED: OXYCODONE/APAP 5/325 TAB PO PRN (14:00)
--- NOTE | 2018-04-28 14:02 | PDRADPRE ---
Radiology History & Physical Indication for procedure: renal failure (RUE AVF with poor flow; angio with possible intervention; Routine exchange tunneled HD catheter) Home medications: Aspirin EC [Aspirin EC 81 mg (*)] 81 mg PO DAILY 01/04/18 [Last Taken 02/23/18] Lovastatin 20 mg PO BID 01/04/18 [Last Taken 02/23/18] Labetalol HCl 02/24/18 [Last Taken 02/23/18] Multivitamin 1 tab PO DAILY 02/24/18 [Last Taken 02/23/18] Tums Ultra 1 tab PO AC 02/24/18 [Last Taken 02/23/18] Allergies/Adverse Reactions: No Allergies [NKDA] Allergy (Verified 04/16/18 14:02) Mental status: A&Ox3 Heart exam: regular rate and rhythm Lungs exam: clear to auscultation Mallampati Score: Class 2
--- NOTE | 2018-04-28 14:03 | PDRADPN ---
Radiology Procedure Note Date of Procedure: 04/28/18 Radiologist: Miko Joe Anesthesia: IV Sedation Pre-op Diagnosis: ESRD Post-op Diagnosis: ESRD Indication: Poor flow RUE AVF Procedure: AVFistulogram; Tunneled HD catheter exchange Finding(s): Poor flow 2/2 high grade stenosis proximal venous outflow tract at radiocephalic AVF unable to be traversed. Tunneled HD catheter exchange. Inf/Abcess present in the surg proc area at time of surgery?: No
[2018-04-28 15:28] VITALS: BP 148/84
== END 2018-04-28 15:48 | disposition home or self-care (01) ==
LOC: FIMAGING 09:36
PROVIDERS: ATTEND Radiology Vascular & Interventional Radiology
DX: T82.856A Stenosis of peripheral vascular stent, initial encounter (principal); Z49.01 Encounter for fitting and adjustment of extracorporeal dialysis catheter; N18.6 End stage renal disease
CPT/HCPCS: 36581; 36902; 76937; 99152; 99153; C1769; C1894; C1725; J1642; J1644; J2250; J2310; J3010; Q9967

== ENCOUNTER 2018-05-25 21:14 | Emergency (ER) | payer OTHER, MEDICAID ==
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
[2018-05-25] MEDS ORDERED: TDAP ADULT 0.5 ML INJ (BOOSTRIX) IM ONE (22:00)
[2018-05-25 23:10] VITALS: BP 121/86
== END 2018-05-25 23:10 | disposition home or self-care (01) ==
LOC: EDUNIT#
PROC: 0HQ0XZZ Repair Scalp Skin, External Approach (ICD-10-PCS; principal; 2018-05-25)
DX: S01.01XA Laceration without foreign body of scalp, initial encounter (principal); I12.0 Hypertensive chronic kidney disease with stage 5 chronic kidney disease or end stage renal disease; N18.6 End stage renal disease; W01.190A Fall on same level from slipping, tripping and stumbling with subsequent striking against furniture, initial encounter; Y92.9 Unspecified place or not applicable

== ENCOUNTER 2018-06-16 06:57 | Day surgery (SDC) | payer OTHER, MEDICAID ==
[2018-06-16] MEDS ORDERED: ceFAZolin 2 GM/DEXTROSE 100 ML IV ONE (07:10)
[2018-06-16] MEDS ORDERED: NS 1,000 ML IV ONE (07:11)
[2018-06-16] MEDS ORDERED: PROTAMINE SULFATE 50 MG/5 ML VIAL IVP ONE (07:17)
[2018-06-16] MEDS ORDERED: THROMBIN (BOVINE) 5,000 UNIT VIAL TP ONE (07:17)
[2018-06-16] MEDS ORDERED: THROMBIN (BOVINE) 20,000 UNIT SPRAY TP ONE ×2 (07:17→07:19)
[2018-06-16] MEDS ORDERED: PAPAVERINE HCL 60 MG/2 ML SDV ONE (07:18)
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
[2018-06-16] MEDS ORDERED: PROPOFOL 200 MG/20 ML VIAL ONE (07:55)
[2018-06-16] MEDS ORDERED: DEXAMETHASONE 4 MG/ML VIAL ONE (07:56)
[2018-06-16] MEDS ORDERED: RANITIDINE 50 MG/2 ML VIAL ONE (08:10)
[2018-06-16] MEDS ORDERED: ePHEDrine SULFATE 25 MG/5 ML SYR ONE (08:29)
[2018-06-16] MEDS ORDERED: PHENYLEPHRINE HCL 100 MCG/ML SYR ONE (08:46)
[2018-06-16] MEDS ORDERED: BUPIVACAINE 0.5% 30 ML SDV ONE (09:26)
[2018-06-16] MEDS ORDERED: ONDANSETRON 4 MG/2 ML VIAL ONE (09:55)
[2018-06-16] MEDS ORDERED: NALOXONE HCL 0.4 MG/ML INJ IVP PRN (09:58)
[2018-06-16] MEDS ORDERED: fentaNYL 100 MCG/2 ML INJ IVP PRN (09:58)
--- NOTE | 2018-06-16 10:32 | POSTOPPROG ---
Post Op Note Date of Operation: 06/16/18 Surgeon: Jayme Oscar Dietary Aide: Elana Olsen Anesthesiologist: Calixto Godinez Anesthesia: GET(General Endotracheal) Pre-op Diagnosis: CRF Post-op Diagnosis: same Procedure: RUE AVF c basilic vein transposition Findings: good thrill Inf/Abcess present in the surg proc area at time of surgery?: No EBL: 50-100 Complications: none Bowel Protocol: N/A Clean Closure Performed: N/A
--- NOTE | 2018-06-16 10:33 | POSTANESTH ---
Post Anesthetic Evaluation Cardiovascular Status: Similar to Pre-Op Cond Respiratory Status: Similar to Pre-op Cond., Requires Airway Assist Level of Consciousness/Mental Status: Can Participate in Eval Pain Control: Adequate, Prn Tx Ordered Nausea/Vomiting Control: Adequate, Prn Tx Ordered Complications Possibly Related to Anesthesia: None Noted
[2018-06-16 11:58] VITALS: BP 120/69
== END 2018-06-16 12:05 | disposition home or self-care (01) ==
LOC: FSGY 06:57
PROVIDERS: ATTEND Surgery
PROC: 051 Upper Veins, Bypass (ICD-10-PCS; principal; 2018-06-16 08:00)
DX: N18.6 End stage renal disease (principal); T82.858A Stenosis of other vascular prosthetic devices, implants and grafts, initial encounter; E11.22 Type 2 diabetes mellitus with diabetic chronic kidney disease; Z99.2 Dependence on renal dialysis; I69.328 Other speech and language deficits following cerebral infarction; Z79.2 Long term (current) use of antibiotics; Z86.19 Personal history of other infectious and parasitic diseases
CPT/HCPCS: J0690; J1100; J1644; J2370; J2405; J2440; J2704; J2720; J2780

== ENCOUNTER 2018-06-21 20:19 | Emergency (ER) | payer OTHER, MEDICAID ==
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
[2018-06-21 21:37] VITALS: BP 145/82
== END 2018-06-21 21:36 | disposition home or self-care (01) ==
DX: I12.0 Hypertensive chronic kidney disease with stage 5 chronic kidney disease or end stage renal disease (principal); N18.6 End stage renal disease; E11.9 Type 2 diabetes mellitus without complications; Z99.2 Dependence on renal dialysis

== ENCOUNTER 2018-07-23 22:08 | Inpatient (IN) | payer OTHER, MEDICAID | END 2018-07-29 16:36 | disposition home or self-care (01) | LOC: F1N 07-24 02:08 ==